=== PATIENT | male | born 1950 | race Caucasian/White ===

== ENCOUNTER → 2016-10-13 | Day surgery (SDC) | payer BC ==
[~2016-10-13] MED LIST: ALLO100T PO; AMIO200T PO; AMLO10TA2 PO; ATOR40TA16 PO; Aspirin Chew PO; DOCU1CAP39 PO; GENTAMICIN SULFATE 80 MG/2 ML VIAL ONE; LACTATED RINGER'S 1000 ML INJ 1,000 ML ONE; LEVA500T PO; LISI-515 PO; LISI40TA PO; LOSA100T PO; METH40TA PO; METO25TA3 PO; MIDAZOLAM HCL 2 MG/2 ML VIAL ONE; ONDANSETRON HCL 4 MG/2 ML VIAL IV PUSH ONE; PLAV75TA29 PO; PROPOFOL 200 MG/20 ML AMP IV ONE; SODIUM CHLORIDE 0.9% SOLN 100 ML BAG IV ONE
--- NOTE | 2016-10-13 16:42 | TN ---
cc: KEY SULLIVAN M.D. DATE OF SURGERY: 10/13/2016 PREOPERATIVE DIAGNOSIS 1. Recurrent gross hematuria (ICD-10 code of R31.0). 2. 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 3. Narrowing at the navicularis fossa. (ICD-10 code N35.9). POSTOPERATIVE DIAGNOSIS: 1. Recurrent gross hematuria (ICD-10 code of R31.0). 2. 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 3. Narrowing at the navicularis fossa. (ICD-10 code N35.9). PROCEDURE: 1. Cystourethroscopy (CPT code 57574) 2. Urethral dilation) CPT code 643150-94) INDICATIONS Mr. Alamo is a 66-year-old gentleman who previously underwent robotic assisted laparoscopic prostatectomy for prostate cancer with resultant occurrence and then image guided radiation therapy salvage treatment. He now has recalcitrant gross hematuria from radiation induced hemorrhagic cystitis. He presents now for fulguration of any bleeding vessels and evacuation of clots. Findings were normal anterior urethra. He did have some narrowing at the navicularis fossa which did not allow the 21 Mongolian cystoscope to be placed. The prostatic urethra was absent. The bladder neck was within normal limits. There was no evidence of active bleeding within the bladder. There was severe radiation changes with innumerable telangiectasia and neovascularity of the bladder itself. The ureteral orifice was normal size, shape and condition, effluxing clear urine. There were no gege tumors or calcifications identified. PROCEDURE The procedure, as well as the risks and benefits were explained to the patient. Informed consent was obtained. The patient was taken to the major operative theater where he was placed in supine position. The patient was identified as well as the operative site. [place] time-out was performed in standard fashion. At this time general anesthetic and prophylactic intravenous antibiotics consisting of gentamicin 80 mg was administered. After adequate anesthetic the patient was placed in the low dorsolithotomy position, prepped and draped in the usual standard fashion. At this time attempts at placing a 21 Mongolian cystoscope were unsuccessful due to some narrowing in the navicularis fossa possibly due to a recent indwelling Wells catheter during the extended hospitalization. At this time, [place] sounds were used from 16 Mongolian to 24 Mongolian to open the urethral meatus and then a 21 Mongolian obturator was placed into the urethra. The obturator was then removed and an Garay resectoscope with a 30 degree lens was inserted and then the remainder of the urethra was bypassed and into the bladder without difficulty. Upon entering the bladder there was no active bleeding, and decision was made not to perform any additional treatment on the bladder. At this time the cystoscope was then removed with clear urine effluxing. The patient tolerated the procedure well, emerged from anesthetic without difficulty. He returned to the Recovery Room in stable condition to be discharged home when criteria is met. There are no obvious complications. The patient will require outpatient hyperbaric oxygen as definitive treatment for his radiation hemorrhagic cystitis. MD GODWIN Fam/DICK /4:13 PM /4:22 PM
== END | disposition home or self-care (01) ==
LOC: ESDC 13:28
PROVIDERS: ATTEND Urology
DX: R31.0 Gross hematuria (principal); N30.40 Irradiation cystitis without hematuria; N35.9 Urethral stricture, unspecified
CPT/HCPCS: 00910; 52281; J1580; J2250; J2405; J3010; J7120

== ENCOUNTER 2016-11-18 13:51 | Observation (INO) | payer MEDICARE, BC ==
[~2016-11-18] VITALS: Ht 167.6 cm; Wt 75.0 kg
[2016-11-18 13:53] VITALS: BP 128/67; PULSE 106; RESP 14; TEMP 97.6; O2SAT 96
--- NOTE | 2016-11-18 14:16 | PD ---
HPI Chief Complaint: Complaint Time Seen by Provider: 14:16 Travel History International Travel<30 days: No Contact w/Intl Traveler<30days: No Traveled to known affect area: No History of Present Illness HPI 66-year-old male came to the emergency room with history of hematuria that started 5-6 hours earlier today. 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 He has been dealing with this problem for past few years. He has a urologist who he sees for this. His last admission was couple months ago for the exact same reason. Patient says that currently he is in pain. He has not had a decent urine void in past few hours. He was seen by the urologist earlier this morning. After that he started having the symptoms. Patient is a chronic alcoholic and he slightly tachycardic. Patient is experiencing spasmodic pain in the suprapubic area. No history of fever or chills. PFSH Past Medical History Narrative Medical List of his past medical history is reviewed from the nursing note. Social History Tobacco Use: Yes Allergies-Medications (Allergen,Severity, Reaction): Coded Allergies: No Known Allergies (Unverified , 11/18/16) Comments No known drug allergies. Reported Meds & Prescriptions Reported Meds & Active Scripts Active Narrative Medication List of his home medications reviewed from the nursing note. Review of Systems Except as stated in HPI: all other systems reviewed are Neg Physical Exam Narrative GENERAL: Awake, alert, anxious, moderate distress SKIN: Warm and dry. HEAD: Atraumatic. Normocephalic. EYES: Pupils equal and round. No scleral icterus. No injection or drainage. ENT: No nasal bleeding or discharge. Mucous membranes pink and moist. NECK: Trachea midline. No JVD. CARDIOVASCULAR: Regular rate and rhythm. No murmur appreciated. RESPIRATORY: No accessory muscle use. Clear to auscultation. Breath sounds equal bilaterally. GASTROINTESTINAL: Slight distention of the abdomen with suprapubic fullness and tenderness. Hepatic and splenic margins not palpable. MUSCULOSKELETAL: No obvious deformities. No clubbing. No cyanosis. No edema. NEUROLOGICAL: Awake and alert. No obvious cranial nerve deficits. Motor grossly within normal limits. Normal speech. PSYCHIATRIC: Appropriate mood and affect; insight and judgment normal. Data Data Last Documented VS Vital Signs Date Time Temp Pulse Resp B/P Pulse Ox O2 Delivery O2 Flow Rate FiO2 2/9/17 14:35 18 95 Room Air 11/18/16 14:28 88 11/18/16 13:53 97.6 128/67 Orders Complete Blood Count With Diff (11/18/16 14:22) Comprehensive Metabolic Panel (11/18/16 14:22) Prothrombin Time / Inr (Pt) (11/18/16 14:22) Act Partial Throm Time (Ptt) (11/18/16 14:22) Ecg Monitoring (11/18/16 14:22) Bilateral Bp Monitoring (11/18/16 14:22) Iv Access Insert/Monitor (11/18/16 14:22) Oximetry (11/18/16 14:22) Oxygen Administration (11/18/16 14:22) Sodium Chloride 0.9% Flush (Ns Flush) (11/18/16 14:30) Sodium Chlorid 0.9% 500 Ml Inj (Ns 500 M (11/18/16 14:30) Urinary Catheter Insert/Apply (11/18/16 14:22) Urinalysis - C+S If Indicated (11/18/16 15:19) Ondansetron Inj (Zofran Inj) (11/18/16 15:45) Morphine Inj (Morphine Inj) (11/18/16 15:45) Morphine Inj (Morphine Inj) (11/18/16 16:45) Admit Order (Ed Use Only) (11/18/16 16:47) Consult Urology (11/18/16 ) Labs Laboratory Tests Test 11/18/16 11/18/16 14:35 16:45 White Blood Count 5.3 TH/MM3 Red Blood Count 3.38 MIL/MM3 Hemoglobin 8.9 GM/DL Hematocrit 27.5 % Mean Corpuscular Volume 81.5 FL Mean Corpuscular Hemoglobin 26.3 PG Mean Corpuscular Hemoglobin 32.3 % Concent Red Cell Distribution Width 15.9 % Platelet Count 231 TH/MM3 Mean Platelet Volume 7.7 FL Neutrophils (%) (Auto) 67.0 % Lymphocytes (%) (Auto) 14.7 % Monocytes (%) (Auto) 13.6 % Eosinophils (%) (Auto) 3.6 % Basophils (%) (Auto) 1.1 % Neutrophils # (Auto) 3.6 TH/MM3 Lymphocytes # (Auto) 0.8 TH/MM3 Monocytes # (Auto) 0.7 TH/MM3 Eosinophils # (Auto) 0.2 TH/MM3 Basophils # (Auto) 0.1 TH/MM3 CBC Comment DIFF FINAL Differential Comment Prothrombin Time 12.3 SEC Prothromb Time International 1.1 RATIO Ratio Activated Partial 27.6 SEC Thromboplast Time Sodium Level 136 MEQ/L Potassium Level 4.0 MEQ/L Chloride Level 102 MEQ/L Carbon Dioxide Level 22.9 MEQ/L Anion Gap 11 MEQ/L Blood Urea Nitrogen 18 MG/DL Creatinine 1.16 MG/DL Estimat Glomerular Filtration 63 ML/MIN Rate Random Glucose 89 MG/DL Calcium Level 8.5 MG/DL Total Bilirubin 0.2 MG/DL Aspartate Amino Transf 52 U/L (AST/SGOT) Alanine Aminotransferase 38 U/L (ALT/SGPT) Alkaline Phosphatase 62 U/L Total Protein 7.3 GM/DL Albumin 3.7 GM/DL Urine Color YELLOW Urine Turbidity HAZY Urine pH 6.5 Urine Specific [place] 1.012 Urine Protein 300 mg/dL Urine Glucose (UA) NEG mg/dL Urine Ketones NEG mg/dL Urine Occult Blood LARGE Urine Nitrite NEG Urine Bilirubin NEG Urine Urobilinogen LESS THAN 2.0 MG/DL Urine Leukocyte Esterase NEG Urine RBC /hpf Urine WBC 66 /hpf Microscopic Urinalysis Comment CATH-CULTURE IND MDM Medical Decision Making Medical Screen Exam Complete: Yes Emergency Medical Condition: Yes Medical Record Reviewed: Yes Differential Diagnosis Hematuria, urinary retention secondary to blood clots Narrative Course 4:30 PM nurse was unable to advance the 3 way cannula for bladder irrigation. Blood test results were back and patient was anemic. Case was discussed with Dr. Philippe who was on-call for urology. He initially recommended to get a bladder scan to quantitate the urine in the bladder. Bladder scanner was unavailable but then he eventually came to see the patient and decided to put the catheter in based on his physical exam. He had difficulty putting the three -way cannula due to urethral stricture. He decided to dilate the urethra with bougie. Eventually he was able to put a Wells catheter. The nurses tried to irrigate it to the best of her ability. He wants the patient to be admitted overnight with continuous irrigation. Case was discussed with the hospitalist was accepted the patient. Patient would require a repeat CBC to check for his hemoglobin. Procedures EKG Prior to Arrival: No Physician Communication Physician Communication Dr. Philippe Diagnosis Primary Impression: Urinary retention Additional Impressions: Gross hematuria Anemia Qualified Code: D64.9 - Anemia, unspecified type Radiation cystitis Admitting Information Admitting Physician Requests: Observation Scripts Levofloxacin (Levaquin)500 Mg Pdh691 Mg PO DAILY #7 TAB Ref 0 Prov:Eduar Ulrich MD 11/19/16 Reese Lockwood MD Nov 18, 2016 14:16
[2016-11-18] MEDS ORDERED: SODIUM CHLORID 0.9% 500 ML INJ 500 ML IV ONE (14:30)
[2016-11-18] MEDS ORDERED: SODIUM CHLORIDE 0.9% FLUSH 5 ML FLUSH IVF PRN (14:30)
[2016-11-18 14:35] VITALS: RESP 18; O2SAT 95
[2016-11-18 14:50] LABS: AUTOMATED NEUTROPHIL # 3.6 TH/MM3 (1.8-7.7); BASOPHIL # 0.1 TH/MM3 (0-0.2); BASOPHIL % 1.1 % (0.0-2.0); EOSINOPHIL # 0.2 TH/MM3 (0-0.4); EOSINOPHIL % 3.6 % (0.0-4.0); HEMATOCRIT 27.5 % (39.0-51.0); HEMO FLAGS DIFF FINAL; LYMPH % 14.7 % (9.0-44.0); LYMPHOCYTE # 0.8 TH/MM3 (1.0-4.8); MEAN CELL VOLUME 81.5 FL (80.0-100.0); MEAN CORPUSCULAR HEMOGLOBIN 26.3 PG (27.0-34.0); MEAN CORPUSCULAR HGB CONC 32.3 % (32.0-36.0); MONO % 13.6 % (0.0-8.0); PLATELET COUNT 231 TH/MM3 (150-450); RED BLOOD COUNT 3.38 MIL/MM3 (4.50-5.90); RED CELL DISTRIBUTION WIDTH 15.9 % (11.6-17.2); WHITE BLOOD COUNT 5.3 TH/MM3 (4.0-11.0)
[2016-11-18 14:58] LABS: APTT (PATIENT) 27.6 SEC (24.3-30.1); INTERNATIONAL NORMALIZED RATIO 1.1 RATIO; PROTHROMBIN TIME - PATIENT 12.3 SEC (9.8-11.6)
[2016-11-18 15:17] LABS: ANION GAP 11 MEQ/L (5-15); AST (GOT) 52 U/L (15-37); BICARBONATE 22.9 MEQ/L (21.0-32.0); BLOOD UREA NITROGEN 18 MG/DL (7-18); CHLORIDE 102 MEQ/L (98-107); GLOMERULAR FILTRATION RATE 63 ML/MIN (>89); SODIUM (NA) 136 MEQ/L (136-145)
[2016-11-18 15:20] LABS: ALKALINE PHOSPHATASE 62 U/L (45-117); ALT (GPT) 38 U/L (12-78); TOTAL BILIRUBIN ADULT 0.2 MG/DL (0.2-1.0)
[2016-11-18] MEDS ORDERED: MORPHINE SULFATE 4 MG/ML INJ IV PUSH ONE ×2 (15:45→16:45)
[2016-11-18] MEDS ORDERED: ONDANSETRON HCL 4 MG/2 ML VIAL IV PUSH ONE (15:45)
--- NOTE | 2016-11-18 16:48 | PD.CONS ---
[facility] Service Urology Consult Requested By Primary Care Physician Hudson Gold III, MD Diagnosis: History of Present Illness 66-year-old male with history of prostate cancer presents with urinary retention and gross hematuria. Patient underwent a robotic prostatectomy 9 years ago and following this he had radiation therapy. Within the last year he developed gross hematuria and was told that he had radiation cystitis on cystoscopic exam. Patient under the care of . During the course today he's had trouble with urination with the recurrence of gross hematuria. He underwent cystoscopy with urethral dilation 1 month ago by his urologist. 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 He was dilated and sent home. Review of Systems Constitutional: DENIES: Fatigue Endocrine: DENIES: Polydipsia Eyes: DENIES: Diplopia Ears, nose, mouth, throat: DENIES: Hearing loss Respiratory: DENIES: Snoring Cardiovascular: DENIES: Chest pain Gastrointestinal: COMPLAINS OF: Abdominal pain (distended bladder) Genitourinary: COMPLAINS OF: Urinary incontinence (since urethral dilation 1 month ago) Musculoskeletal: DENIES: Joint pain Integumentary: DENIES: Abnormal pigmentation Hematologic/lymphatic: DENIES: Lymphadenopathy Immunologic/allergic: DENIES: Urticaria Neurologic: DENIES: Headache Past Family Social History Past Medical History Hypertension Prostate cancer Past Surgical History Robotic -assisted laparoscopic prostatectomy 9 years ago followed by radiation therapy. Allergies: Coded Allergies: No Known Allergies (Unverified , 11/18/16) Physical Exam Vital Signs Vital Signs Date Time Temp Pulse Resp B/P Pulse Ox O2 Delivery O2 Flow Rate FiO2 11/18/16 14:35 18 95 Room Air 11/18/16 14:35 95 Room Air 11/18/16 14:28 88 18 11/18/16 13:53 97.6 106 14 128/67 96 Room Air Physical Exam GENERAL: This is a well-nourished, well-developed patient, in no apparent distress. SKIN: No rashes, ecchymoses or lesions. Cool and dry. HEAD: Atraumatic. Normocephalic. No temporal or scalp tenderness. EYES: Pupils equal round and reactive. Extraocular motions intact. No scleral icterus. No injection or drainage. ENT: Nose without bleeding, purulent drainage or septal hematoma. Throat without erythema, tonsillar hypertrophy or exudate. Uvula midline. Airway patent. NECK: Trachea midline. No JVD or lymphadenopathy. Supple, nontender, no meningeal signs. CARDIOVASCULAR: Regular rate and rhythm without murmurs, gallops, or rubs. RESPIRATORY: Clear to auscultation. Breath sounds equal bilaterally. No wheezes , rales, or rhonchi. GASTROINTESTINAL: Abdomen soft, non-tender, bladder is distended. No hepato- splenomegaly, or palpable masses. No guarding. : Normal phallus testes are descended: Dribbling blood-tinged urine from meatus. MUSCULOSKELETAL: Extremities without clubbing, cyanosis, or edema. No joint tenderness, effusion, or edema noted. No calf tenderness. Negative Homans sign bilaterally. NEUROLOGICAL: Awake and alert. Cranial nerves II through XII intact. Motor and sensory grossly within normal limits. Five out of 5 muscle strength in all muscle groups. Normal speech. Laboratory Laboratory Tests Test 11/18/16 14:35 White Blood Count 5.3 Red Blood Count 3.38 Hemoglobin 8.9 Hematocrit 27.5 Mean Corpuscular Volume 81.5 Mean Corpuscular Hemoglobin 26.3 Mean Corpuscular Hemoglobin 32.3 Concent Red Cell Distribution Width 15.9 Platelet Count 231 Mean Platelet Volume 7.7 Neutrophils (%) (Auto) 67.0 Lymphocytes (%) (Auto) 14.7 Monocytes (%) (Auto) 13.6 Eosinophils (%) (Auto) 3.6 Basophils (%) (Auto) 1.1 Neutrophils # (Auto) 3.6 Lymphocytes # (Auto) 0.8 Monocytes # (Auto) 0.7 Eosinophils # (Auto) 0.2 Basophils # (Auto) 0.1 CBC Comment DIFF FINAL Differential Comment Prothrombin Time 12.3 Prothromb Time International 1.1 Ratio Activated Partial 27.6 Thromboplast Time Sodium Level 136 Potassium Level 4.0 Chloride Level 102 Carbon Dioxide Level 22.9 Anion Gap 11 Blood Urea Nitrogen 18 Creatinine 1.16 Estimat Glomerular Filtration 63 Rate Random Glucose 89 Calcium Level 8.5 Total Bilirubin 0.2 Aspartate Amino Transf 52 (AST/SGOT) Alanine Aminotransferase 38 (ALT/SGPT) Alkaline Phosphatase 62 Total Protein 7.3 Albumin 3.7 Result Diagram: 11/18/16 1435 11/18/16 1435 Course Patient was prepped and draped in usual sterile fashion. Filiforms and followers were passed into the bladder over a wire up to an 18 Malawian sound. 16th Malawian comanche tip catheter was then passed over the wire and he tolerated the procedure well. Assessment and Plan Assessment and Plan 66-year-old male with history of prostate cancer and radiation cystitis now and urinary retention. Patient underwent urethral dilatation at the bedside while in the emergency room. 16 comanche tip catheter passed over wire without difficulty. Bladder manually irrigated and urine is clearing. Only a few clots were identified. Observe overnight and manually irrigate Wells every 1-1/2-2 hours to maintain patency and avoid clot retention. Himanshu Philippe DO Nov 18, 2016 16:48
[2016-11-18 17:14] VITALS: BP 146/71; PULSE 88; RESP 20; O2SAT 98
[2016-11-18 18:08] LABS: BLOOD, URINE LARGE (NEG); COMMENT (UR) CATH-CULTURE IND; CULTURE IF INDICATED CATH CULTURE IND; GLUCOSE,URINE NEG (NEG); KETONE, URINE NEG (NEG); NITRITE,URINE NEG (NEG); PH, URINE 6.5 (5.0-8.5); URINE COLOR YELLOW (YELLW/STRAW)
[2016-11-18] MEDS: DEXT 5%-NACL 0.45% 1000 ML INJ 1,000 ML IV SCH (18:33)
[2016-11-18 18:40] VITALS: BP 142/75; PULSE 91; RESP 18; O2SAT 96
[2016-11-18 20:00] VITALS: BP 140/72; PULSE 90; RESP 18; O2SAT 96
[2016-11-18 22:00] VITALS: BP 136/74; PULSE 88; RESP 18; O2SAT 96
[2016-11-19] MEDS: DEXT 5%-NACL 0.45% 1000 ML INJ 1,000 ML IV SCH (01:00)
[2016-11-19 04:25] VITALS: BP 133/62; PULSE 75; RESP 19; TEMP 98; O2SAT 98
[2016-11-19 07:42] VITALS: BP 154/87; PULSE 108; RESP 18; TEMP 97.6; O2SAT 94
[2016-11-19 07:56] VITALS: BP 122/78; PULSE 87; RESP 18; TEMP 98.4; O2SAT 95
--- NOTE | 2016-11-19 08:49 | MH ---
cc: YANETHLETICIACHERYL DATE OF ADMISSION: 11/18/2016 DATE OF : 1950 REASON FOR ADMISSION Urinary retention. HISTORY OF PRESENT ILLNESS This is a pleasant 66-year-old white male who has been in his usual state of health up until this a.m. The patient ate a bowl of cereal and was drinking p.o. fluids but was unable to void. He states that this has happened to him before and he had to have an intervention so he could urinate. The patient had a robotic prostatectomy nine years ago following some radiation therapy. He has been told in the past by Urology that he had developed radiation cystitis and is followed per his urologist Dr. Carballo. The patient comes to the emergency room with positive for bladder pain due to being unable to void. He denies any chest pain, shortness of breath, no nausea or vomiting, no headache, no fever. He is positive for hot flashes but this is a chronic thing for him. The patient is alert, cooperative, understands the situation and is a good historian. 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 At that time, he was dilated and sent home. The patient denies any recent weight gain or weight loss. He has had no problems with appetite. He has been taking his usual medications without any problem. Some of the history information is being pulled from the record. PAST MEDICAL HISTORY 1. Hypertension. 2. Prostate surgery. 3. Anemia. 4. Radiation cystitis. 5. Gross hematuria. 6. Urinary retention. PAST SURGICAL HISTORY Laparoscopic prostatectomy robotic nine years ago. ALLERGIES NO KNOWN. MEDICATIONS No active meds brought in to the hospital but the patient does state that he takes 60 mg of methadone daily, he has already taken his dose for the day, this is for his pain management. SOCIAL HISTORY The patient is , lives alone. Denies any tobacco usage. He does have ETOH abuse with daily alcohol mostly beers after work. Denies any other illicit drugs except his prescriptions. FAMILY HISTORY Positive for Parkinson's and heart disease. REVIEW OF SYSTEMS A 12-point review was done. Positives noted, gross hematuria, urinary retention, acute on chronic pain, anxiety mild. Other systems are negative or unremarkable. PHYSICAL EXAMINATION VITAL SIGNS: Temp 97.6, pulse 88, respirations 20, blood pressure 128/67 and 146/71, these blood pressures were taken four hours apart, O2 sat 98 on room air. GENERAL: Well-nourished, well-developed white male, looks younger than his stated age, resting on the stretcher, in no acute distress at this time. He is status post urethral dilatation here in the emergency room. HEENT: Atraumatic, normocephalic. PERRLA at 2 mm. Mucous membranes are pink and moist. He has no scleral icterus. No drainage. NECK: Supple with no JVD. CARDIOVASCULAR: Systolic murmur noted at the left lower midsternal border, it is a grade 3/6, holosystolic. He has no edema and his pulses are intact. PULMONARY: Essentially clear lungs anteriorly and posteriorly with no wheezes, rales or rhonchi. GASTROINTESTINAL: Abdomen is flat, soft, nontender, nondistended. GENITOURINARY: Wells catheter with bright red urine. No bladder pain or spasms at this time. MUSCULOSKELETAL: Moves all extremities with purpose. He has no cyanosis, no clubbing. Hand mobility specialist are equal. NEUROLOGICAL: He is alert and oriented x4. A good historian. Cranial nerves intact. PSYCHOLOGICAL: His affect is normal. Insight and judgment is normal. SKIN: His skin is pink, warm and dry. DIAGNOSTIC DATA WBC count 5.3, RBC 3.38, hemoglobin 8.9, hematocrit 27.5, platelet count 231, monocyte percentage auto 14.6, lymphocyte percentage 0.8. PT/INR 1.1. Chemistry: Sodium 136, potassium 4, chloride 102, carbon dioxide 22.9, anion gap 11, BUN 18, creatinine 1.16, GFR 63, random glucose 89, AST 52. Urine is pending. ASSESSMENT 1. Urinary retention. 2. Gross hematuria. 3. Radiation cystitis. 4. Anemia. 5. ETOH abuse. PLAN 1. Admit for observation. 2. Place the patient on a regular diet. 3. Reconcile his medications. 4. Consult Urology for his expert opinion to follow. 5. ECG monitoring. 6. Vital sign monitoring which will include his temp, pulse, respirations and blood pressure. 7. O2 therapy as needed. 8. Eva hydration with IV fluids. Currently the patient has D5 normal saline infusion. 9. Since the patient is actively bleeding, we will have no DVT prophylaxis. 10. We will irrigate the Wells every hour until urine is clear. 11. If the patient stabilizes, we will look at discharge planning sometime in the next 24-48 hours. The patient is FULL CODE, FULL AGGRESSIVE CARE. Dictated by: PRATEEK Gabriel Cheryl Ulrich MD JP/JOE /5:22 PM /8:42 AM PT SEEN AND EXAMINED ON DAY ADMISSION ABOVE FACE TO FACE TIME SPENT WITH PT CHART WAS REVIEWED. INCLUDING LABS MEDS AND RAD DATA NOTES WERE REVEIWED PLAN OF CARE WAS DW PRATEEK ABOVE DW PT IN DETAIL COND WAS GUARDED [facility] YEE
--- NOTE | 2016-11-19 10:01 | HHI.PR ---
Subjective Remarks Pt seen and examined. Urine now clear. Objective Vital Signs Vital Signs Date Time Temp Pulse Resp B/P Pulse Ox O2 Delivery O2 Flow Rate FiO2 11/19/16 07:56 98.4 87 18 122/78 95 11/19/16 04:25 98.0 75 19 133/62 98 11/18/16 22:00 88 18 136/74 96 Room Air 11/18/16 20:00 90 18 140/72 96 Room Air 11/18/16 19:30 20 11/18/16 19:30 20 11/18/16 18:40 91 18 142/75 96 Room Air 11/18/16 17:14 88 20 146/71 98 Room Air 11/18/16 14:35 18 95 Room Air 11/18/16 14:35 95 Room Air 11/18/16 14:28 88 18 11/18/16 13:53 97.6 106 14 128/67 96 Room Air I/O 11/18/16 11/18/16 11/18/16 11/19/16 11/19/16 11/19/16 07:00 15:00 23:00 07:00 15:00 23:00 Intake Total 600 ml Output Total 400 ml 750 ml Balance 200 ml -750 ml Intake IV Total 600 ml Output Urine Total 400 ml 750 ml # Voids 0 0 Result Diagram: 11/18/16 1435 11/18/16 1435 Objective Remarks Abd:soft,nt,nd Gomez: urine clear Assessment and Plan Assessment and Plan 66-year-old male with history of prostate cancer and radiation cystitis now and urinary retention. Patient underwent urethral dilatation at the bedside while in the emergency room. 16 nulato tip catheter passed over wire without difficulty. Bladder manually irrigated and urine is clearing. Only a few clots were identified. Observe overnight and manually irrigate Gomez every 1-1/2-2 hours to maintain patency and avoid clot retention. 11/19 66-year-old male with history of prostate cancer and radiation cystitis with AUR s/p urethral dilatation at bedside with complicated gomez placement Pt does not wish to leave catheter in place for 5 days as recommended and wishes it to be removed. D/C gomez per pt wishes Instruct CIC BIW to help with maintain urethral patency F/U with Dr. Beard to have HBO scheduled for treatment of XRT cystitis Himanshu Philippe DO Nov 19, 2016 10:01
--- NOTE | 2016-11-19 10:26 | HHI.PR ---
Subjective Remarks Patient has no complaint Has no more blood clots or any bleeding in his urine sign no pain No nausea vomiting Note a next and feeling good next review of system for 10 point system otherwise unremarkable Objective Objective Results - Vital Signs Date Time Temp Pulse Resp B/P Pulse Ox O2 Delivery O2 Flow Rate FiO2 11/19/16 07:56 98.4 87 18 122/78 95 11/19/16 04:25 98.0 75 19 133/62 98 11/18/16 22:00 88 18 136/74 96 Room Air 11/18/16 20:00 90 18 140/72 96 Room Air 11/18/16 19:30 20 11/18/16 19:30 20 11/18/16 18:40 91 18 142/75 96 Room Air 11/18/16 17:14 88 20 146/71 98 Room Air 11/18/16 14:35 18 95 Room Air 11/18/16 14:35 95 Room Air 11/18/16 14:28 88 18 11/18/16 13:53 97.6 106 14 128/67 96 Room Air I/O 11/18/16 11/18/16 11/18/16 11/19/16 11/19/16 11/19/16 07:00 15:00 23:00 07:00 15:00 23:00 Intake Total 600 ml Output Total 400 ml 750 ml Balance 200 ml -750 ml Intake IV Total 600 ml Output Urine Total 400 ml 750 ml # Voids 0 0 Result Diagram: 11/18/16 1435 11/18/16 1435 Other Results Laboratory Tests Test 11/18/16 11/18/16 14:35 16:45 White Blood Count 5.3 Red Blood Count 3.38 Hemoglobin 8.9 Hematocrit 27.5 Mean Corpuscular Volume 81.5 Mean Corpuscular Hemoglobin 26.3 Mean Corpuscular Hemoglobin 32.3 Concent Red Cell Distribution Width 15.9 Platelet Count 231 Mean Platelet Volume 7.7 Neutrophils (%) (Auto) 67.0 Lymphocytes (%) (Auto) 14.7 Monocytes (%) (Auto) 13.6 Eosinophils (%) (Auto) 3.6 Basophils (%) (Auto) 1.1 Neutrophils # (Auto) 3.6 Lymphocytes # (Auto) 0.8 Monocytes # (Auto) 0.7 Eosinophils # (Auto) 0.2 Basophils # (Auto) 0.1 CBC Comment DIFF FINAL Differential Comment Prothrombin Time 12.3 Prothromb Time International 1.1 Ratio Activated Partial 27.6 Thromboplast Time Sodium Level 136 Potassium Level 4.0 Chloride Level 102 Carbon Dioxide Level 22.9 Anion Gap 11 Blood Urea Nitrogen 18 Creatinine 1.16 Estimat Glomerular Filtration 63 Rate Random Glucose 89 Calcium Level 8.5 Total Bilirubin 0.2 Aspartate Amino Transf 52 (AST/SGOT) Alanine Aminotransferase 38 (ALT/SGPT) Alkaline Phosphatase 62 Total Protein 7.3 Albumin 3.7 Urine Color YELLOW Urine Turbidity HAZY Urine pH 6.5 Urine Specific [place] 1.012 Urine Protein 300 Urine Glucose (UA) NEG Urine Ketones NEG Urine Occult Blood LARGE Urine Nitrite NEG Urine Bilirubin NEG Urine Urobilinogen LESS THAN 2.0 Urine Leukocyte Esterase NEG Urine RBC Urine WBC 66 Microscopic Urinalysis Comment CATH-CULTURE IND Date/Time Procedure Status Source Growth 11/18/16 16:45 Urine Culture Received Urine Catheterized Urine Pending Physical Exam Physical Exam GENERAL: Well-nourished, well-developed white male, looks younger than his stated age, resting on the stretcher, in no acute distress at this time. He is status post urethral dilatation. HEENT: Atraumatic, normocephalic. PERRLA. Mucous membranes are pink and moist. He has no scleral icterus. No drainage. NECK: Supple with no JVD. CARDIOVASCULAR: Systolic murmur noted at the left lower midsternal border, it is a grade 2- 3/6, holosystolic. He has no edema and his pulses are intact. PULMONARY: Essentially clear lungs anteriorly and posteriorly with no wheezes, rales or rhonchi. GASTROINTESTINAL: Abdomen is flat, soft, nontender, nondistended. GENITOURINARY: Wells catheter with clear urine. No bladder pain or spasms at this time. MUSCULOSKELETAL: Moves all extremities with purpose. He has no cyanosis, no clubbing. 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 NEUROLOGICAL: He is alert and oriented x4. A good historian. Cranial nerves intact. PSYCHOLOGICAL: His affect is normal. Insight and judgment is normal. SKIN: His skin is pink, warm and dry. A/P Assessment and Plan 1. Urinary retention. 2. Gross hematuria. 3. Radiation cystitis. 4. Anemia. 5. ETOH abuse. PLAN No urine is clear Labs reviewed Continue his medications. Appreciate consultation by Urology status post urethral dilation Off of continuous bladder irrigation now clear urine. As per fire management technician cleared for discharge. Stable blood pressure. Medications reviewed Plan to discharge him home today without Wells catheter as recommended by urologist, as witnessed by patient and RN both Discussed with RN Patient will follow his urologist as outpatient and primary care doctor as outpatient Overall condition is stable and good discharge him home today Eduar Ulrich MD Nov 19, 2016 10:26
[2016-11-19] MEDS ORDERED: LEVA500T PO (10:27)
[2016-11-24] MEDS ORDERED: LISI-515 PO (15:47)
[2016-11-24] MEDS ORDERED: LISI40TA PO (15:47)
[2016-12-07] MEDS ORDERED: AMLO10TA2 PO (12:59)
[2016-12-16] MEDS ORDERED: LOSA100T PO (15:00)
== END 2016-11-19 11:16 | disposition home or self-care (01) ==
LOC: NEPD 13:51 → NEDA 16:48 → NEPGCP 11-19 00:19
PROVIDERS: ADMIT Specialist; ATTEND Specialist
DX: R33.9 Retention of urine, unspecified (principal); N30.41 Irradiation cystitis with hematuria; D64.9 Anemia, unspecified; R00.0 Tachycardia, unspecified; F17.210 Nicotine dependence, cigarettes, uncomplicated; N35.8 Other urethral stricture; Z85.46 Personal history of malignant neoplasm of prostate; I10 Essential (primary) hypertension; F10.10 Alcohol abuse, uncomplicated
CPT/HCPCS: 80053; 81001; 85025; 85610; 85730; 87086; 96361; 96374; 96375; 96376; 99284; G0378; J2270; J2405; J7040

== ENCOUNTER → 2016-12-14 | Day surgery (SDC) | payer MEDICARE, BC ==
[~2016-12-14] MED LIST changes: -LEVA500T PO; -LISI-515 PO; -LISI40TA PO; -ONDANSETRON HCL 4 MG/2 ML VIAL IV PUSH ONE; +PROPOFOL 100 MG/10 ML INJ IV ONE; -PROPOFOL 200 MG/20 ML AMP IV ONE; +SODIUM CHLORIDE 0.9% SOLN 100 ML (PAB) BAG IV ONE; -SODIUM CHLORIDE 0.9% SOLN 100 ML BAG IV ONE
--- NOTE | 2016-12-14 09:19 | TN ---
cc: KEY SULLIVAN M.D. DATE OF SURGERY: 12/14/2016 PREOPERATIVE DIAGNOSIS 1. Recalcitrant hemorrhagic induced radiation cystitis. 2. Prostate cancer. POSTOPERATIVE DIAGNOSIS 1. Recalcitrant hemorrhagic induced radiation cystitis. 2. Prostate cancer. PROCEDURE Cystourethroscopy with evacuation of clots and fulguration of bleeding vessels (CPT code 91027). INDICATIONS Mr. Trimble is a 66-year-old gentleman who previously underwent robotic-assisted laparoscopic prostatectomy for prostate cancer with resultant recurrence and then image guided radiation therapy for salvage treatment. Unfortunately, he has had now recalcitrant gross hematuria from radiation-induced hemorrhagic cystitis. He presents now for evacuation of clots and fulguration of any bleeding vessels. He has just recently started hyperbaric oxygen as definitive treatment. FINDINGS Findings are normal anterior urethra. Unfortunately the bulbous and membranous urethra show evidence of radiation changes with diffuse telangiectasia and bleeding vessels as well as the bladder neck itself where there is actually evidence of a small arterial bleeding vessel. The prostate is absent. The trigone shows significant telangiectasia of the trigone and radiation changes. There is one oozing vessel proximal to the left ureteral orifice but no other bleeding vessels within the bladder itself. There is a large clot within the bladder. The remainder of the bladder shows no suspicious tumors or lesions. The ureteral orifice is normal size, shape and position, effluxing clear urine and although the process is in close proximity they do not appear to be involved. PROCEDURE Procedure as well as risks and benefits were explained to the patient, informed consent was obtained. The patient was taken to the major operative theater where he was placed in supine position. The patient was identified as well as the operative site. [place] time-out was performed in standard fashion. At this time general anesthetic and prophylactic intravenous antibiotics consisting of gentamicin 80 mg was administered. After adequate anesthetic the patient was placed in low dorsolithotomy position, prepped and draped in the usual sterile fashion. At this time attempts at placing a 22.5 cystoscope were unsuccessful due to some narrowing at the navicularis fossa so serial dilatation from 16-[place] to 24-[place] of just the glandular urethra was performed. There was some mild bleeding. At this time the cystoscope was able to be entered without difficulty traversing the urethra and into the bladder without difficulty. At this time photo documentation was obtained and the clot was evacuated relatively easily. The Bugbee probe was used to fulgurate any bleeding vessels, especially the one in the bladder and the pumping vessel within the bladder neck. The remainder of the vessels were fulgurated as best as could be obtained given the difficulty in his situation of diffuse oozing. At this time after confirming relative hemostasis, the bladder was decompressed, cystoscope was removed. The patient tolerated the procedure well and emerged from anesthetic without difficulty and transferred to the recovery room in stable condition. He will be discharged home when criteria is met. There are no obvious complications. The patient will continue hyperbaric oxygen in the hopes that this will alleviate the issue. MD GODWIN Fam/KARTHIK /8:43 AM /9:06 AM
== END | disposition home or self-care (01) ==
LOC: ESDC 06:11
PROVIDERS: ATTEND Urology
DX: N30.41 Irradiation cystitis with hematuria (principal); C61 Malignant neoplasm of prostate
CPT/HCPCS: 00910; 52214; J1580; J2250; J3010; J7120

== ENCOUNTER 2017-01-28 07:25 | Day surgery (SDC) | payer MEDICARE, BC ==
[~2017-01-28] VITALS: Ht 167.6 cm; Wt 77.4 kg
[~2017-01-28 07:25] MED LIST changes: -ALLO100T PO; -AMIO200T PO; -AMLO10TA2 PO; -ATOR40TA16 PO; -Aspirin Chew PO; -DOCU1CAP39 PO; -GENTAMICIN SULFATE 80 MG/2 ML VIAL ONE; -LACTATED RINGER'S 1000 ML INJ 1,000 ML ONE; -METH40TA PO; -METO25TA3 PO; -MIDAZOLAM HCL 2 MG/2 ML VIAL ONE; -PLAV75TA29 PO; -PROPOFOL 100 MG/10 ML INJ IV ONE; -SODIUM CHLORIDE 0.9% SOLN 100 ML (PAB) BAG IV ONE
[2017-01-28] MEDS ORDERED: NS 1000P @30 MLS/HR (KVO) IV SCH (08:00)
[2017-01-28 08:04] VITALS: BP 158/90; PULSE 102; RESP 17; TEMP 100.2; O2SAT 98
[2017-01-28] MEDS ORDERED: ALLO100T PO (08:08)
[2017-01-28 08:14] LABS: AUTOMATED NEUTROPHIL # 8.4 TH/MM3 (1.8-7.7); BASOPHIL % 0.4 % (0.0-2.0); EOSINOPHIL # 0.1 TH/MM3 (0-0.4); EOSINOPHIL % 1.2 % (0.0-4.0); LYMPH % 5.9 % (9.0-44.0); LYMPHOCYTE # 0.6 TH/MM3 (1.0-4.8); MEAN CELL VOLUME 74.5 FL (80.0-100.0); MEAN CORPUSCULAR HEMOGLOBIN 22.8 PG (27.0-34.0); MEAN CORPUSCULAR HGB CONC 30.6 % (32.0-36.0); MONO % 9.8 % (0.0-8.0); NEUT % 82.7 % (16.0-70.0); PLATELET COUNT 241 TH/MM3 (150-450); RED BLOOD COUNT 3.62 MIL/MM3 (4.50-5.90); RED CELL DISTRIBUTION WIDTH 18.9 % (11.6-17.2); WHITE BLOOD COUNT 10.2 TH/MM3 (4.0-11.0)
[2017-01-28 08:15] LABS: HEMO FLAGS AUTO DIFF
[2017-01-28 08:24] LABS: APTT (PATIENT) 26.2 SEC (24.3-30.1); INTERNATIONAL NORMALIZED RATIO 1.1 RATIO; PROTHROMBIN TIME - PATIENT 12.3 SEC (9.8-11.6)
[2017-01-28 08:38] LABS: POTASSIUM 3.9 MEQ/L (3.5-5.1)
[2017-01-28 08:44] LABS: SCAN/DIFF AUTO DIFF CONFIRMED
[2017-01-28] MEDS ORDERED: IOHEXOL 350 MG/ML 100 ML BTL (for Cath Lab) OTHER ONE (09:10)
[2017-01-28] MEDS ORDERED: IOHEXOL 350 MG/ML 50 ML BTL (for Cath Lab) OTHER ONE (09:10)
[2017-01-28] MEDS ORDERED: HEPARIN-NS/PF INJ 500 ML ONE (09:24)
[2017-01-28] MEDS ORDERED: MIDAZOLAM HCL 5 MG/5 ML VIAL ONE ×2 (09:28→10:27)
[2017-01-28] MEDS ORDERED: HEPARIN SODIUM - IV 10,000 UNITS/10 ML VIAL ONE (10:56)
[2017-01-28 11:52] LABS: HDL CHOLESTEROL 46.8 MG/DL (40.0-60.0)
--- NOTE | 2017-01-28 17:44 | PD.CAR.PN ---
CVT Progress Note Subjective/Hospital Course: sts data discussed with pt RISK SCORES About the STS Risk Calculator Procedure: AV Replacement Risk of Mortality: 1.089% Morbidity or Mortality: 10.273% Long Length of Stay: 3.243% Short Length of Stay: 60.745% Permanent Stroke: 0.794% Prolonged Ventilation: 3.901% DSW Infection: 0.17% Renal Failure: 2.384% Reoperation: 5.577% Objective: Vital Signs Date Time Temp Pulse Resp B/P Pulse Ox O2 Delivery O2 Flow Rate FiO2 01/28/17 10:53 96 Room Air 01/28/17 08:04 100.2 102 17 158/90 98 Labs: Laboratory Tests Test 01/28/17 07:50 White Blood Count 10.2 TH/MM3 (4.0-11.0) Red Blood Count 3.62 MIL/MM3 (4.50-5.90) Hemoglobin 8.3 GM/DL (13.0-17.0) Hematocrit 27.0 % (39.0-51.0) Mean Corpuscular Volume 74.5 FL (80.0-100.0) Mean Corpuscular Hemoglobin 22.8 PG (27.0-34.0) Mean Corpuscular Hemoglobin 30.6 % Concent (32.0-36.0) Red Cell Distribution Width 18.9 % (11.6-17.2) Platelet Count 241 TH/MM3 (150-450) Mean Platelet Volume 8.2 FL (7.0-11.0) Neutrophils (%) (Auto) 82.7 % (16.0-70.0) Lymphocytes (%) (Auto) 5.9 % (9.0-44.0) Monocytes (%) (Auto) 9.8 % (0.0-8.0) Eosinophils (%) (Auto) 1.2 % (0.0-4.0) Basophils (%) (Auto) 0.4 % (0.0-2.0) Neutrophils # (Auto) 8.4 TH/MM3 (1.8-7.7) Lymphocytes # (Auto) 0.6 TH/MM3 (1.0-4.8) Monocytes # (Auto) 1.0 TH/MM3 (0-0.9) Eosinophils # (Auto) 0.1 TH/MM3 (0-0.4) Basophils # (Auto) 0.0 TH/MM3 (0-0.2) CBC Comment AUTO DIFF Differential Comment AUTO DIFF CONFIRMED Prothrombin Time 12.3 SEC (9.8-11.6) Prothromb Time International 1.1 RATIO Ratio Activated Partial 26.2 SEC Thromboplast Time (24.3-30.1) Sodium Level 138 MEQ/L (136-145) Potassium Level 3.9 MEQ/L (3.5-5.1) Chloride Level 105 MEQ/L (98-107) Carbon Dioxide Level 27.0 MEQ/L (21.0-32.0) Anion Gap 6 MEQ/L (5-15) Blood Urea Nitrogen 14 MG/DL (7-18) Creatinine 1.08 MG/DL (0.60-1.30) Estimat Glomerular Filtration 69 ML/MIN (>89) Rate Random Glucose 121 MG/DL (74-106) Calcium Level 8.6 MG/DL (8.5-10.1) Triglycerides Level 83 MG/DL (42-150) Cholesterol Level 130 MG/DL (120-200) LDL Cholesterol 67 MG/DL (0-99) HDL Cholesterol 46.8 MG/DL (40.0-60.0) Cholesterol/HDL Ratio 2.77 RATIO Result Diagram: 01/28/17 0750 01/28/17 0750 Noelle Walker Jan 28, 2017 17:44
--- NOTE | 2017-01-28 18:41 | RADRPT ---
EXAM DATE/TIME: 01/28/2017 17:36 [facility] COMPARISON: No previous studies available for comparison. INDICATIONS : Evaluate for pneumonia, pneumothorax or communicable disease. Pre-op heart valve replacement MEDICAL HISTORY : None. SURGICAL HISTORY : None. ENCOUNTER: Initial ACUITY: 1 day PAIN SCORE: 0/10 LOCATION: Bilateral chest FINDINGS: PA and lateral views of the chest demonstrate the lungs to be symmetrically aerated without evidence of mass, infiltrate or effusion. The cardiomediastinal contours are unremarkable. Osseous structure s are intact. CONCLUSION: No acute disease. Kenneth Fuentes MD on January 28, 2017 at 18:38 Board Certified Radiologist. This report was verified electronically.
--- NOTE | 2017-01-28 18:42 | EKG ---
Date Performed: 01/28/2017 Time Performed: 08:01:00 PTAGE: 66 years EKG: Sinus tachycardia Poor R wave progression - probable normal variant Lateral ST-T changes ar e nonspecific Borderline ECG NO PREVIOUS TRACING DOCTOR: Ruslan Aburto Interpretating Date/Time 01/28/2017 18:40:04
--- NOTE | 2017-01-28 19:40 | RADRPT ---
EXAM DATE/TIME: 01/28/2017 17:55 [facility] COMPARISON: No previous studies available for comparison. INDICATIONS : Preop atrial valve replacement. MEDICAL HISTORY : Carcinoma, prostate. Hypertension. Aortic stenosis. UTI. SURGICAL HISTORY : Prostatectomy. Spinal surgery. ENCOUNTER: Initial ACUITY: 1 day PAIN SCORE: 0/10 LOCATION: Bilateral neck PEAK SYSTOLIC VELOCITIES (cm/sec): ICA/CCA RATIO: Right: 1.6 Left: 1.2 ICA: Right: 100 Left: 96 CCA: Right: 63 Left: 79 ECA: Right: 87 Left: 71 VERTEBRAL: Right: 61 antegrade Left: 61 antegrade Elevated flow velocities and ICA/CCA ratios have been found to correlate with increased degrees of vessel stenosis, calculated as percentage of diameter relative to a normal segment of distal ICA/CCA FINDINGS: RIGHT CAROTID: No significant stenosis is visualized. The waveforms are within normal limits. LEFT CAROTID: No significant stenosis is visualized. The waveforms are within normal limits. VERTEBRAL ARTERIES: Antegrade flow is seen in both vertebral arteries. MISCELLANEOUS: None. CONCLUSION: No hemodynamically significant stenosis in either carotid artery. Kenneth Fuentes MD on January 28, 2017 at 19:37 Board Certified Radiologist. This report was verified electronically.
[2017-01-28 19:55] LABS: BLOOD, URINE TRACE (NEG); COMMENT (UR) CULT NOT INDICATED; CULTURE IF INDICATED CULT NOT INDICATED; GLUCOSE,URINE NEG (NEG); KETONE, URINE NEG (NEG); NITRITE,URINE NEG (NEG); PH, URINE 6.5 (5.0-8.5); URINE COLOR YELLOW (YELLW/STRAW)
--- NOTE | 2017-01-28 20:24 | MB ---
cc: BALTAZAR VALDEZ DATE OF CONSULTATION 01/28/[address] Han REASON FOR CONSULTATION Shortness of breath. HISTORY OF PRESENT ILLNESS This is a pleasant 66-year-old male with shortness of breath significantly worse over the last three months. He was able to walk more than half a mile to one mile three months ago but now he barely walks half a block and gets short of breath. Denies any chest pain. No fever or chills. No night sweats. The patient is undergoing hyperbaric treatment because of radiation cystitis. He had CA of the prostate and received radiation treatment. Today he underwent cardiac catheterization. He has severe aortic stenosis and is being planned for aortic valve replacement. PAST MEDICAL HISTORY 1. History of aortic stenosis 2. Dyspnea 3. Hypertension, 4. Prostate cancer status post radiation treatment 5. Radiation cystitis MEDICATIONS 1. Losartan 100 mg 2. Allopurinol 100 mg. ALLERGIES AMLODIPINE LISINOPRIL SOCIAL HISTORY He is . He works for a [employer]. No history of smoking. Drinks one to two beers. FAMILY HISTORY Has three children all grown. REVIEW OF SYSTEMS Normally he is up and active, still working. Denies any weight loss. No hemoptysis. No DVT or embolism. No seizure, stroke or epilepsy. PHYSICAL EXAMINATION GENERAL: A well-built, well-nourished male not in acute distress. VITAL SIGNS: Blood pressure 158/90, heart rate 102, respiration 17, temperature 100 HEENT: Pupils are equal and reactive. Oral mucosa and nasal mucosa normal. NECK: Supple. CHEST: Equal bilaterally. No rales or rhonchi. CARDIOVASCULAR: Normal. He has systolic normal. ABDOMEN: Soft, nondistended. Bowel sounds present. EXTREMITIES: No edema. 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 No focal deficit. LABORATORY FINDINGS WBC 10.2, hemoglobin 8.3, hematocrit 27, MCV 74, platelet count 241. Sodium 138, potassium 3.9, chloride 105, CO2 27, BUN 14, creatinine 1.08. He had a PFT done which shows his FVC is 83% of predicted. FVC/FEV1 ratio is mildly decreased. IMPRESSION 1. Shortness of breath probably related to his severe aortic stenosis. He also has anemia which may be contributing to his symptoms. His PFT is near normal. 2. Severe aortic stenosis 3. Anemia 4. Cancer of the prostate status post radiation treatment. 5. Radiation cystitis. He is on hyperbaric treatment. PLAN I discussed with the patient he is being planned for surgery for replacement of the aortic valve. He is stable from pulmonary standpoint of view. For completion of the work, he will need a complete pulmonary function study as outpatient. Further treatment will depend on the course in the hospital. Thank you Dr. Han for this consult. MD SELVIN Longoria/ /6:43 PM /8:08 PM YEE
--- NOTE | 2017-01-31 08:28 | MB ---
cc: LEATHA AGRAWAL MD DATE OF CONSULTATION: 01/28/2017. HISTORY OF PRESENT ILLNESS: 66-year-old patient of Dr. Hudson Gold and Dr. Han who apparently has been having some shortness of breath and tightness and also some swelling of his lower extremities and lightheadedness when he bends over for the last couple of months and also some chest discomfort after his hyperbaric treatments. The patient was evaluated with an echocardiogram which showed a peak gradient of 101 mm, aortic valve area 0.5, some mild mitral regurgitation, mild tricuspid regurgitation, an ejection fraction of 55% and some left ventricular hypertrophy. The patient underwent cardiac cath today by Dr. Han which showed severe . He also had some elevated pulmonary pressures with the PA pressure 65/46, RV pressure 65/10, RA pressure of 12. No evidence of coronary disease. We were consulted to evaluate for aortic valve replacement. PAST MEDICAL HISTORY: 1. Prostate cancer 7 years ago where he had prostate surgery followed by prostate radiation. 2. He developed some hematuria back in September where he has had catheters placed multiple times. 3. He has had some irrigation of the bladder. His last catheter was three weeks ago. He is followed by Dr. Carballo and says he normally if he has to have a catheter in place it usually requires a urologist. 4. He is undergoing hyperbaric oxygen treatment for this chronic cystitis. He is on the 28th session out of 42. 5. Ethyl alcohol abuse. 6. Hypertension. PAST SURGICAL HISTORY: Robotic-assisted laparoscopic prostatectomy followed by radiation. ALLERGIES: 1. AMLODIPINE. 2. LISINOPRIL. HOME MEDICATIONS: 1. Losartan. 2. Allopurinol. FAMILY HISTORY: A father from heart disease at age 58. Mother at age 72 from complications of Parkinson's. SOCIAL HISTORY: The patient and has three children. 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 Drinks two to three beers per day. Nonsmoker. REVIEW OF SYSTEMS: GENERAL: In general no night sweats, fever, heat and cold intolerance. SKIN: No psoriasis, itching or hives. HEAD, EYES, EARS, NOSE, THROAT: No blurred vision, hearing loss. RESPIRATORY: Positive for shortness of breath. CARDIOVASCULAR: As above in the history of present illness. GASTROINTESTINAL: No diarrhea, vomiting. GENITOURINARY: He has some occasional incontinence. Requires periodic catheterizations. NEUROLOGIC: No history of TIA, CVA or seizure disorder. ENDOCRINE: No history of hypothyroidism and/or diabetes mellitus. PHYSICAL EXAMINATION: VITAL SIGNS: On exam, blood pressure 158/90, heart rate of 100, temperature max 100. GENERAL: Patient is awake, alert and in no acute distress. HEAD, EYES, EARS, NOSE, THROAT: Head is normocephalic, atraumatic. Pupils equal and reactive. Oral mucosa pink, moist. NECK: The neck is supple. No JVD. HEART: Heart sounds S1, S2, regular rate and rhythm. There is a grade 3/6 systolic murmur best noted in the left sternal border. LUNGS: Clear to auscultation. No wheezes, rales or rhonchi. ABDOMEN: Abdomen is soft and nontender. He has an umbilical hernia. EXTREMITIES: No cyanosis, clubbing or edema. Good distal pulses. NEUROLOGIC: He is alert and oriented times three with no focal deficits. LABORATORY FINDINGS: Shows hemoglobin of 8.3, hematocrit of 27, white cell count 10.2, platelet count 241,000. Sodium 138, potassium 3.9, BUN of 14, creatinine 1.08. Triglycerides 83, cholesterol 130, HDL 46. INR 1.1. IMAGING STUDIES: Carotid ultrasound pending. Chest x-ray is pending. IMPRESSION: This is a 66-year-old male with severe aortic stenosis with positive for symptoms. Cardiac films have been evaluated by Dr. Leatha Agrawal. The plan will be for minimally invasive aortic valve replacement. Plan for surgery on February 10, 2017. The procedures, alternatives and risks have been discussed with the patient and he is agreeable to proceed. 2. In the meantime, the patient has some probable chronic anemia due to his history of prostate surgery and radiation. 3. Chronic cystitis secondary to prostate radiation. We will need to get input from his urologist, Dr. Carballo, in regards to catheter placement prior to surgery. Whether the patient comes in the night before for placement by urology versus being able to place the catheter in the day of surgery. We will contact and further evaluate this. DICTATED BY PRATEEK CHRISTIE. Leatha PETER/LINH /5:27 PM /8:27 AM
--- NOTE | 2017-01-31 11:24 | MA ---
cc: WOODY SOUZA DATE: 01/28/2017 INDICATION Severe aortic stenosis. PROCEDURE PERFORMED 1. Retrograde right and left heart catheterization with left ventriculography and selective coronary angiography. 2. Thermodilution cardiac output determination. 3. Thoracic aortography including aortic root, ascending thoracic aorta, aortic arch and descending thoracic aorta. 4. Moderate sedation. ACCESS SITE Right femoral artery and right femoral vein. EQUIPMENT USED 5 [place] pigtail catheter, AL-1 and AR modified coronary artery catheters, straight Glidewire, [place] catheter. Crossing the aortic vessel arbitrarily was difficult and multiple catheters and wires were used to obtain access to the left ventricle. MEDICATIONS Versed IV, Fentanyl IV, heparin IV. CONTRAST Omnipaque 130 cc. COMPLICATIONS None. ESTIMATED BLOOD LOSS Less than 10 cc. METHOD OF HEMOSTASIS Manual compression. RESULTS HEMODYNAMICS Heart rate 90 beats per minute. Left ventricular end-diastolic pressure 9 mmHg. Mean pulmonary capillary wedge pressure 25 mmHg. Pulmonary artery 65/30/46. Right ventricle 55/10. Mean right atrial pressure 12. Left ventricle 203/9. Aorta 145/71/108. Cardiac output 6.7 liters per minute by thermodilution. Calculated aortic valve area 0.76 centimeters squared. LEFT VENTRICULOGRAPHY AND THORACIC AORTOGRAPHY Ejection fraction 60%. Wall motion normal. No mitral regurgitation. There was no evidence of aortic insufficiency. There was evidence of mild ascending aortic dilatation. CORONARY ANGIOGRAPHY The left main coronary is patent. The left anterior descending coronary artery is patent. D1 is large and patent. D2 is patent. The left circumflex is patent. OM1 is patent. The right coronary artery is a dominant vessel which is patent. PDA is patent. PLV is patent. DIAGNOSIS 1. Severe aortic stenosis. 2. Preserved left ventricular systolic function. 3. Patent coronary arteries. 4. Moderate pulmonary hypertension. DISPOSITION Mr. Trimble was found to have evidence of severe aortic stenosis. We will obtain a cardiothoracic consultation to consider aortic valve replacement. We will also obtain bedside PFTs and pulmonary evaluation. MD CARLY Faria/JAMAL /11:01 AM /11:04 AM [facility] HOSPITALKeke
--- NOTE | 2017-02-03 10:13 | RSPPFT ---
DATE OF PROCEDURE: 01/28/17 COMMENTS: The forced vital capacity, FEV1,, FEV1/FVC ratio and FEF 25-75 are all normal. IMPRESSION: This is a normal spirometry.
== END 2017-01-28 19:18 | disposition home or self-care (01) ==
LOC: HDOC 07:25 → HDIC 07:26 → HDOC 19:18
PROVIDERS: ATTEND Internal Medicine Interventional Cardiology
DX: I35.0 Nonrheumatic aortic (valve) stenosis (principal); I10 Essential (primary) hypertension; D64.9 Anemia, unspecified; Z85.46 Personal history of malignant neoplasm of prostate; Z01.818 Encounter for other preprocedural examination
CPT/HCPCS: 71020; 80048; 80061; 81001; 82810; 85025; 85347; 85610; 85730; 87641; 93005; 93460; 93567; 93880; 94010; C1769; C1893; J1644; J2250; J3010; Q9967

== ENCOUNTER 2017-02-09 13:01 | Inpatient (IN) | payer MEDICARE, BC ==
[~2017-02-09] VITALS: Ht 167.6 cm; Wt 75.4 kg
[~2017-02-09 13:01] MED LIST changes: +ALLO100T PO
[2017-02-10] VITALS (10 sets, daily range): BP systolic 110–167; BP diastolic 38–86; PULSE 73–105; RESP 16–22; TEMP 98.1–99.1; O2SAT 94–99
[2017-02-10] MEDS ORDERED: PHENYLEPHRINE HCL 10 MG/ML VIAL IV ONE (05:00)
[2017-02-10] MEDS ORDERED: VECURONIUM BROMIDE 10 MG VIAL IV ONE ×2 (05:00→09:43)
[2017-02-10] MEDS ORDERED: CALCIUM CHLORIDE 10% SOLN 1 GRAM/10 ML SYR IV ONE (05:00)
[2017-02-10] MEDS ORDERED: ARTIFICIAL TEARS OPTH OINT 3.5 APPLIC/3.5 GM TUBO ONE (05:00)
[2017-02-10] MEDS ORDERED: LIDOCAINE HCL 1% 30 ML VIAL OTHER ONE (05:00)
[2017-02-10] MEDS ORDERED: NITROGLYCERIN-DEXTROSE INJ 250 ML IV ONE (05:00)
[2017-02-10] MEDS ORDERED: MAGNESIUM SULFATE 1000 MG/2 ML VIAL (PED) IV ONE (05:00)
[2017-02-10] MEDS ORDERED: PROTAMINE SULFATE 250 MG/25 ML VIAL IV ONE ×2 (05:00→09:43)
[2017-02-10] MEDS ORDERED: LIDOCAINE HCL 2% 100 MG/5 ML SYRINGE IV PUSH ONE (05:00)
[2017-02-10] MEDS ORDERED: AMINOCAPROIC ACID INJ 250 MG/ML 20 ML VIAL IV ONE (05:00)
[2017-02-10] MEDS ORDERED: HEPARIN SODIUM - SQ 10,000 UNITS/ML VIAL SQ ONE (05:00)
[2017-02-10] MEDS ORDERED: INSULIN REGULAR 100 UNITS in NS 100 ML IV SCH (06:00)
[2017-02-10] MEDS ORDERED: INSULIN HUMAN REGULAR 1,000 UNITS/10 ML VIAL SQ PRN (06:00)
[2017-02-10] MEDS ORDERED: METOPROLOL TARTRATE 25 MG TAB PO SCH (06:00)
[2017-02-10] MEDS ORDERED: LACTATED RINGER'S 1000 ML IV PRN (06:00)
[2017-02-10] MEDS ORDERED: CHLORHEXIDINE GLUCONATE 2 % 1 PACK (2 CLOTHS) TOPICAL PRN (06:00)
[2017-02-10] MEDS ORDERED: POVIDONE IODINE 5% (ANTISEPSIS KIT) 4 APPLICATIONS EACH NARE PRN (06:00)
[2017-02-10] MEDS ORDERED: SODIUM CHLORID 0.9% 500 ML IV PRN (06:00)
[2017-02-10] MEDS ORDERED: CEFAZOLIN 500 MG in NS IRR BTL 500 ML IRRIGATION SCH (06:00)
[2017-02-10] MEDS ORDERED: SODIUM CHLORIDE 0.9% FLUSH 10 ML FLUSH IV FLUSH PRN ×3 (06:00→12:15)
[2017-02-10] MEDS ORDERED: CHLORHEXIDINE GLUCONATE 4% SOLN 120 ML BTL TOPICAL SCH (06:00)
[2017-02-10] MEDS ORDERED: ceFAZolin 2 GM PREMIX 50 ML IV SCH (06:00)
[2017-02-10] MEDS ORDERED: METOPROLOL TARTRATE 25 MG TAB PO PRN (06:00)
[2017-02-10] MEDS ORDERED: METH40TA PO (06:22)
[2017-02-10] MEDS ORDERED: HEPARIN SODIUM - SQ 10,000 UNITS/ML VIAL ONE (06:33)
[2017-02-10] MEDS ORDERED: VANCOMYCIN HCL 1000 MG VIAL ONE (06:33)
[2017-02-10] MEDS ORDERED: ceFAZolin INJ 1,000 MG VIAL ONE (06:33)
[2017-02-10] MEDS ORDERED: ceFAZolin 2 GM PREMIX 50 ML ONE (06:34)
[2017-02-10] MEDS ORDERED: MIDAZOLAM HCL 5 MG/ML VIAL (1 ML) ONE (07:10)
[2017-02-10] MEDS ORDERED: BUPIVACAINE LIPOSO PF 1.3% INJ 20 ML, DEXAMETHASONE INJ 4 MG, MORPHINE INJ 10 MG in SOD... P-ARTICULR SCH (07:30)
[2017-02-10] MEDS ORDERED: HEPARIN SODIUM - IV 10,000 UNITS/10 ML VIAL ONE (07:45)
[2017-02-10] MEDS ORDERED: CUSTODIOL HTK IRR SOLN 1,000 ML ONE (07:45)
[2017-02-10] MEDS ORDERED: POTASSIUM CHLORIDE 20 MEQ/10 ML VIAL ONE (07:46)
[2017-02-10] MEDS ORDERED: MANNITOL INJ 50 ML ONE (07:46)
[2017-02-10] MEDS ORDERED: SODIUM BICARBONATE 8.4% INJ 50 MEQ/50 ML SYR ONE (07:47)
[2017-02-10] MEDS ORDERED: ALBUMIN HUMAN 25% 12.5 GM/50 ML BAGP IV ONE (07:47)
[2017-02-10] MEDS ORDERED: fentaNYL CITRATE 1000 MCG/20 ML VIAL ONE (07:58)
[2017-02-10] MEDS ORDERED: DEXMEDETOMIDINE HCL 200 MCG/2 ML VIAL ONE (09:27)
[2017-02-10] MEDS ORDERED: LACTATED RINGER'S 1000 ML INJ 2,000 ML IV ONE (09:44)
[2017-02-10] MEDS ORDERED: ePHEDrine/NS 25 MG/5 ML SYR IV ONE (09:44)
[2017-02-10] MEDS ORDERED: PHENYLEPH/NS 1000 MCG/10 ML SYR IV ONE (09:44)
[2017-02-10] MEDS ORDERED: SODIUM CHLOR 0.9% 250 ML INJ 500 ML IV ONE (09:45)
[2017-02-10] MEDS ORDERED: SODIUM CHLORID 0.9% 500 ML INJ 1,000 ML IV ONE (09:45)
[2017-02-10] MEDS ORDERED: NORMOSOL R INJ 2,000 ML IV ONE (09:46)
[2017-02-10] MEDS ORDERED: SUGAMMADEX SODIUM 200 MG/2 ML VIAL IV PUSH ONE ×2 (10:53)
[2017-02-10] MEDS ORDERED: DOBUTamine PREMIX DRIP 250 ML IV SCH (12:06)
[2017-02-10] MEDS ORDERED: LACTATED RINGER'S 1000 ML INJ 500 ML IV PRN (12:06)
[2017-02-10] MEDS ORDERED: POTASSIUM CHLOR 20 MEQ PREMIX 100 ML IV PRN ×3 (12:15)
[2017-02-10] MEDS ORDERED: oxyCODONE/ACETAMINOPHEN 5 MG/325 MG TAB PO PRN (12:15)
[2017-02-10] MEDS ORDERED: CLEVIDIPINE INJ 50 ML IV SCH (12:15)
[2017-02-10] MEDS ORDERED: MEPERIDINE HCL 25 MG/ML VIAL IV PRN (12:15)
[2017-02-10] MEDS ORDERED: INSULIN REGULAR (IV INFUSION) 100 UNITS in SODIUM CHLORIDE 0.9% INJ 99 ML IV SCH (12:15)
[2017-02-10] MEDS ORDERED: METOPROLOL TARTRATE 5 MG/5 ML VIAL IV PUSH PRN (12:15)
[2017-02-10] MEDS ORDERED: ACETAMINOPHEN 650 MG SUPP RECTAL PRN (12:15)
[2017-02-10] MEDS ORDERED: Post-op Orders (for Pharmacy) MISC OTHER ONE (12:15)
[2017-02-10] MEDS ORDERED: POTASSIUM CHLORIDE 20 MEQ CONTROLLED RELEASE TAB PO PRN ×2 (12:15)
[2017-02-10] MEDS ORDERED: DEXMEDETOMIDINE INJ 200 MCG in SODIUM CHLORIDE 0.9% INJ 50 ML IV SCH (12:15)
[2017-02-10] MEDS ORDERED: MAGNESIUM SULFATE INJ 2 GM in SODIUM CHLORIDE 0.9% INJ 100 ML IV PRN ×4 (12:15)
[2017-02-10] MEDS ORDERED: ALBUMIN HUMAN 5% 12.5 GM/250 ML BOTTLE IV PRN (12:15)
[2017-02-10] MEDS ORDERED: PHENYLEPHRINE INJ 40 MG in DEXTROSE 5% IN WATE 500 ML INJ 496 ML IV SCH ×2 (12:15)
[2017-02-10] MEDS ORDERED: CALCIUM CHLORIDE INJ 1 GM in SODIUM CHLORIDE 0.9% INJ 100 ML IV PRN (12:15)
[2017-02-10] MEDS ORDERED: DEXTROSE 50% IN WATER 50 ML VIAL(D50) IV PUSH PRN (12:15)
[2017-02-10] MEDS ORDERED: EPINEPHrine (1:1000) INJ 4 MG in DEXTROSE 5% IN WATER INJ 246 ML IV SCH ×2 (12:15)
[2017-02-10] MEDS ORDERED: CALCIUM CHLORIDE 10% 1 GRAM/10 ML VIAL IV PRN (12:15)
[2017-02-10] MEDS ORDERED: ACETAMINOPHEN 325 MG TAB PO PRN (12:15)
[2017-02-10] MEDS ORDERED: DOPamine INJ PREMIX 500 ML IV SCH (12:15)
[2017-02-10] MEDS ORDERED: NITROGLYCERIN-DEXTROSE INJ 250 ML IV SCH (12:15)
[2017-02-10] MEDS ORDERED: ONDANSETRON HCL 4 MG/2 ML VIAL IV PUSH PRN (12:15)
[2017-02-10] MEDS ORDERED: RESP: ALBUTEROL 2.5 MG/IPRATROPIUM 0.5 MG NEB (PRN) NEB (13:15)
[2017-02-10] MEDS ORDERED: RESP: RACEPINEPHRINE 2.25% 0.5 ML NEB NEB PRN (13:15)
[2017-02-10] MEDS ORDERED: PILL SPLITTER OTHER PRN (13:15)
[2017-02-10] MEDS: ACETAMINOPHEN 1000 MG/100 ML VIAL IV SCH ×2 (14:01→20:00)
--- NOTE | 2017-02-10 14:08 | RADRPT ---
EXAM DATE/TIME: 02/10/2017 13:12 [facility] COMPARISON: CHEST PA & LAT, January 28, 2017, 17:36. INDICATIONS : Post CABG. MEDICAL HISTORY : None. SURGICAL HISTORY : None. ENCOUNTER: Initial ACUITY: 1 day PAIN SCORE: Non-responsive. LOCATION: Bilateral chest FINDINGS: Portable supine AP view of the chest demonstrates a normal-sized cardiac silhouette. Right IJ central line is present with distal tip in the right atrium. Large bore right chest tube is present with tip at the apex of the hemithorax. No pneumothorax is visualized. Multiple EKG lines overlie the patient . No unexpected radiopaque foreign body is seen. No effusion, consolidation, or pneumothorax is ident ified. CONCLUSION: Right IJ line distal tip in the SVC. No pneumothorax is visualized. A right chest tube is present. Olu Queen MD on February 10, 2017 at 14:05 Board Certified Radiologist. This report was verified electronically.
[2017-02-10] MEDS: ceFAZolin 2 GM PREMIX 50 ML IV SCH ×2 (14:36→22:15)
[2017-02-10 15:20] LABS: BICARBONATE 25.7 MEQ/L (21.0-32.0); MAGNESIUM 2.7 MG/DL (1.5-2.5); POTASSIUM 4.4 MEQ/L (3.5-5.1)
--- NOTE | 2017-02-10 15:29 | PD.OP ---
cc: Andra Fung MD; Saw Han MD Operative Report Date of Surgery: February 10, 2017 Preoperative Diagnosis: Postoperative Diagnosis: Procedure: 1. Minimally Invasive AVR with a 23 Mosaic Cinch Tissue Valve 2. Left Percutaneous Femoral Arterial and Venous Cannulation for CPB 3. Intercostal Nerve Block 4. Perclose Arterial Closure x 2 . Surgeon: Andra Fung Tar Roofer(s): Manohar Quispe Operation and Findings: PREOPERATIVE DIAGNOSIS: 1. Severe Aortic Valve Stenosis 2. Prostate Cancer 3. Hemorrhagic Cystitis POSTOPERATIVE DIAGNOSIS: Same PRPCEDURE: 1. Minimally Invasive AVR with a 23 Mosaic Cinch Tissue Valve 2. Left Percutaneous Femoral Arterial and Venous Cannulation for CPB 3. Intercostal Nerve Block 4. Perclose Arterial Closure x 2 ANESTHESIA: REYNALDO Cho MD STORM DOOR MAKER: Vinayak Ho [facility] INDICATIONS: This is a 67 yo patient with severe Aortic stenosis presenting for surgical correction of their underlying cardiac pathology. PROCEDURE: Standard monitoring lines were placed. With his h/o prostate cancer and cystitis , he had a Wells placed by his Urologist yesterday in the office. General anesthesia was induced. The patient was prepped and draped in a sterile fashion. Percutaneous access was gained to the left femoral artery and vein. Two Perclose devices were placed on the artery for later closure. The patient was heparinized for cardiopulmonary bypass. The left femoral artery was cannulated with a 17 Biomedicus arterial cannula percutaneously using standard seldinger technique. Similarly, the left femoral vein was cannulated with a 21 Biomedicus cannula under SUE guidance and the tip was confirmed to be in the SVC. A 6 cm right anterior thoracotomy was performed and the 3rd rib was shingled. The right internal mammary artery and vein were ligated and divided. An Pablo retractor was placed followed by a small chest retractor. The pericardium was opened and a pericardial sling was created using interrupted 0 silk sutures. A small 1 cm incision was made at the 6th intercostal space and an LV vent and pericardial suction were placed through this access port. The LV vent was placed through the Right Superior Pulmonary Vein. The aorta was dissected posteriorly for crossclamp placement. The patient was placed on cardiopulmonary bypass. An aortic cross-clamp was applied and the heart was arrested using cold blood cardioplegia delivered through a 14F catheter. 1.5 L of antegrade Custodiol cardioplegia was infused directly into the aortic root. The aorta was opened above the sinotubular ridge and the aortic valve was exposed. The right and left coronary were identified. On opening the aorta, the valve appeared severely calcified with retracted cusps. The valve was resected as well as all annular calcification and was sized for a 23 mm Medtronic Mosaic Cinch tissue valve which was placed with 2-0 pledgeted Tycron valve sutures. The valve seated well. The aorta was closed with two layers of running 4-0 Prolene suture, the first in a horizontal mattress fashion and the second layer of simple running. The patient was systemically rewarmed. The heart was vigorously deaired with a clamp on. Ventricular pacing wire was placed. The clamp was removed, deairing continued. Upon achieving normothermia and intrinsic cardiac activity, the patient was weaned from cardiopulmonary bypass. Strict hemostasis was assured and Protamine administered. Decannulation was carried out without incident and the femoral artery was closed with the Perclose devices. The entry site to the vein was closed with a horizontal mattress suture of 2-0 Silk following manual pressure. There was no adverse reaction. Intraoperative SUE following the procedure showed a well-seated aortic valve with no perivalvular leak and preserved ventricular function. A 32-Faroese chest tube was positioned in the right pleural space and secured with 2-0 silk sutures. The 3rd rib was reapproximated to the sternum using a [id number] 0 Ethibond stitch, and to the adjacent rib with a 0 Vicryl suture. Intercostal nerve block was preformed at the level of the incision as well as 2 rib spaces abpve and below using Exparel solution. The fascia and pectoralis were closed with 0 Vicryl. The subcutaneous tissue was closed using a running 3-0 Monocryl suture. The skin was closed with 4-0 Monocryl. Sterile dressings were placed. At the end of the operation, all sponge, instruments, and needle counts were correct. The patient tolerated the procedure well. He was extubated in the OR and transferred to the CVICU in stable condition. Andra Fung MD February 10, 2017 15:29
[2017-02-10] MEDS: oxyCODONE/ACETAMINOPHEN 5 MG/325 MG TAB PO PRN ×3 (16:25→23:23)
[2017-02-10] MEDS: RESP: ALBUTEROL 2.5 MG/IPRATROPIUM 0.5 MG NEB (SCH) NEB ×2 (17:09→21:24)
[2017-02-10] MEDS: hydrALAZINE HCL 20 MG/ML VIAL IV PRN (17:52)
[2017-02-10] MEDS: AMIODARONE 200 MG TAB PO SCH (19:56)
[2017-02-10] MEDS: METOPROLOL TARTRATE 25 MG TAB PO SCH (19:57)
[2017-02-10] MEDS: SODIUM CHLORIDE 0.9% FLUSH 10 ML FLUSH IV FLUSH SCH (19:58)
[2017-02-10] MEDS: MORPHINE SULFATE 4 MG/ML INJ IV PRN ×2 (21:44→23:22)
[2017-02-11] VITALS (24 sets, daily range): BP systolic 110–156; BP diastolic 48–74; PULSE 67–96; RESP 16–20; TEMP 97.6–100; O2SAT 93–100
[2017-02-11] MEDS: ACETAMINOPHEN 1000 MG/100 ML VIAL IV SCH (02:00)
[2017-02-11] MEDS: hydrALAZINE HCL 20 MG/ML VIAL IV PRN (02:03)
[2017-02-11] MEDS: MORPHINE SULFATE 4 MG/ML INJ IV PRN ×3 (02:23→12:14)
[2017-02-11] MEDS: RESP: ALBUTEROL 2.5 MG/IPRATROPIUM 0.5 MG NEB (SCH) NEB ×7 (04:12→22:17)
--- NOTE | 2017-02-11 04:37 | RADRPT ---
EXAM DATE/TIME: 02/11/2017 03:03 [place] COMPARISON: CHEST SINGLE AP, February 10, 2017, 13:12. INDICATIONS : Status post CABG. MEDICAL HISTORY : None. SURGICAL HISTORY : None. ENCOUNTER: Subsequent ACUITY: 2 days PAIN SCORE: Non-responsive. LOCATION: chest FINDINGS: A single view of the chest demonstrates right-sided chest tube and right-sided jugular central line s table in position. No pneumothorax. Bibasilar atelectasis. Heart enlarged. Osseous structures are in tact. CONCLUSION: Stable chest. No pneumothorax. Kenneth Fuentes MD on February 11, 2017 at 4:34 Board Certified Radiologist. This report was verified electronically.
[2017-02-11 05:04] LABS: HEMATOCRIT 29.8 % (39.0-51.0); MEAN CELL VOLUME 73.8 FL (80.0-100.0); MEAN CORPUSCULAR HEMOGLOBIN 22.8 PG (27.0-34.0); MEAN CORPUSCULAR HGB CONC 30.9 % (32.0-36.0); PLATELET COUNT 181 TH/MM3 (150-450); RED BLOOD COUNT 4.04 MIL/MM3 (4.50-5.90); RED CELL DISTRIBUTION WIDTH 17.9 % (11.6-17.2); WHITE BLOOD COUNT 20.6 TH/MM3 (4.0-11.0)
[2017-02-11 05:06] LABS: REVIEW FLAG FINAL
[2017-02-11 05:32] LABS: MAGNESIUM 2.2 MG/DL (1.5-2.5); POTASSIUM 4.2 MEQ/L (3.5-5.1)
[2017-02-11] MEDS: PANTOPRAZOLE SOD 40 MG DELAYED RELEASE TAB PO SCH (06:07)
[2017-02-11] MEDS: ceFAZolin 2 GM PREMIX 50 ML IV SCH ×3 (06:08→22:00)
[2017-02-11] MEDS ORDERED: FUROSEMIDE 40 MG/4 ML VIAL IV PUSH ONE (07:30)
[2017-02-11] MEDS ORDERED: BISACODYL 10 MG SUPP RECTAL PRN (07:30)
[2017-02-11] MEDS ORDERED: DEXTROSE 50% IN WATER 50 ML VIAL(D50) IV PRN (07:30)
[2017-02-11] MEDS ORDERED: SOD PHOSPHATE/SOD BIPHOSPHATE (ADULT) ENEMA 133ML RECTAL PRN (07:30)
[2017-02-11] MEDS ORDERED: GLUCAGON 1 MG/ML VIAL OTHER PRN (07:30)
[2017-02-11] MEDS: SODIUM CHLORIDE 0.9% FLUSH 10 ML FLUSH IV FLUSH SCH ×2 (07:49→22:01)
[2017-02-11] MEDS: KETOROLAC TROMETHAMINE 30 MG/ML (IVP) VIAL IV PUSH PRN ×2 (07:50→17:04)
[2017-02-11] MEDS ORDERED: CLOPIDOGREL 75 MG TAB PO SCH (09:00)
[2017-02-11] MEDS: METOPROLOL TARTRATE 25 MG TAB PO SCH ×3 (09:00→22:01)
[2017-02-11] MEDS: METHADONE HCL 10 MG TAB PO SCH (09:18)
[2017-02-11] MEDS: MAGNESIUM HYDROXIDE SUSP 30 ML CUP PO SCH (09:18)
[2017-02-11] MEDS: ATORVASTATIN 40 MG TAB PO SCH (09:20)
[2017-02-11] MEDS: MULTIVITAMINS/MINERALS THERAPEUTIC TAB PO SCH (09:20)
[2017-02-11] MEDS: AMIODARONE 200 MG TAB PO SCH ×2 (09:20→22:00)
[2017-02-11] MEDS: ASPIRIN 81 MG CHEW TAB PO SCH (09:20)
[2017-02-11] MEDS: CLOPIDOGREL 75 MG TAB PO SCH (09:22)
[2017-02-11] MEDS: INSULIN ASPART SUPPLEMENTAL SCALE SQ SCH ×4 (10:00→22:00)
--- NOTE | 2017-02-11 13:45 | PD.CAR.PN ---
CVT Progress Note Subjective/Hospital Course: 02/10 PROCEDURE: 1. Minimally Invasive AVR with a 23 Mosaic Cinch Tissue Valve 2. Left Percutaneous Femoral Arterial and Venous Cannulation for CPB 3. Intercostal Nerve Block 4. Perclose Arterial Closure x 2 02/11 Doing well Transfer telemetry Maintain CT Objective: Vital Signs Date Time Temp Pulse Resp B/P Pulse Ox O2 Delivery O2 Flow Rate FiO2 02/11/17 12:31 98.4 67 16 123/67 96 02/11/17 12:28 18 02/11/17 12:06 18 02/11/17 10:00 98.2 96 18 156/74 97 02/11/17 09:20 100 21 02/11/17 09:19 16 02/11/17 09:00 88 02/11/17 09:00 98 Nasal Cannula 2.00 02/11/17 08:00 80 02/11/17 08:00 98.9 84 16 138/68 98 139/51 02/11/17 07:00 83 02/11/17 03:00 94 02/11/17 03:00 100.0 88 20 133/69 93 124/48 02/10/17 23:00 98.1 90 22 148/70 98 155/51 02/10/17 23:00 91 02/10/17 21:24 95 Nasal Cannula 2.00 02/10/17 19:00 78 02/10/17 19:00 98.5 85 20 151/86 98 167/54 02/10/17 17:09 98 Nasal Cannula 2.00 02/10/17 15:00 99.1 74 16 129/38 98 110/57 02/10/17 15:00 73 02/10/17 14:20 98.9 Labs: Laboratory Tests Test 02/11/17 04:44 White Blood Count 20.6 TH/MM3 (4.0-11.0) Red Blood Count 4.04 MIL/MM3 (4.50-5.90) Hemoglobin 9.2 GM/DL (13.0-17.0) Hematocrit 29.8 % (39.0-51.0) Mean Corpuscular Volume 73.8 FL (80.0-100.0) Mean Corpuscular Hemoglobin 22.8 PG (27.0-34.0) Mean Corpuscular Hemoglobin 30.9 % Concent (32.0-36.0) Red Cell Distribution Width 17.9 % (11.6-17.2) Platelet Count 181 TH/MM3 (150-450) Mean Platelet Volume 7.8 FL (7.0-11.0) Sodium Level 137 MEQ/L (136-145) Potassium Level 4.2 MEQ/L (3.5-5.1) Chloride Level 103 MEQ/L (98-107) Carbon Dioxide Level 25.0 MEQ/L (21.0-32.0) Anion Gap 9 MEQ/L (5-15) Blood Urea Nitrogen 19 MG/DL (7-18) Creatinine 1.05 MG/DL (0.60-1.30) Estimat Glomerular Filtration 71 ML/MIN (>89) Rate Random Glucose 94 MG/DL (74-106) Calcium Level 8.5 MG/DL (8.5-10.1) Magnesium Level 2.2 MG/DL (1.5-2.5) Result Diagram: 02/11/17 0444 02/11/17 0444 (1) (aortic stenosis) (2) S/P AVR (aortic valve replacement) Andra Fung MD February 11, 2017 13:45
--- NOTE | 2017-02-11 15:24 | EKG ---
Date Performed: 02/11/2017 Time Performed: 05:20:34 PTAGE: 67 years EKG: Sinus rhythm . Possible inferior infarct - age undetermined Abnormal ECG PREVIOUS TRACING : 01/28/2017 08.01 DOCTOR: Conner Nicholas Interpretating Date/Time 02/11/2017 15:22:23
[2017-02-11] MEDS: DOCUSATE SODIUM 100 MG CAP PO SCH (22:00)
[2017-02-11] MEDS: oxyCODONE/ACETAMINOPHEN 5 MG/325 MG TAB PO PRN (22:00)
[2017-02-11] MEDS: SENNOSIDES 8.6 MG TAB PO SCH (22:01)
[2017-02-12] VITALS (29 sets, daily range): BP systolic 95–148; BP diastolic 53–71; PULSE 65–84; RESP 16–20; TEMP 97.8–98.7; O2SAT 94–99
[2017-02-12] MEDS: INSULIN ASPART SUPPLEMENTAL SCALE SQ SCH ×5 (02:00→21:00)
[2017-02-12 05:21] LABS: BASOPHIL # 0.1 TH/MM3 (0-0.2); BASOPHIL % 0.4 % (0.0-2.0); EOSINOPHIL % 0.2 % (0.0-4.0); HEMATOCRIT 25.6 % (39.0-51.0); LYMPH % 5.7 % (9.0-44.0); LYMPHOCYTE # 0.8 TH/MM3 (1.0-4.8); MEAN CELL VOLUME 73.9 FL (80.0-100.0); MEAN CORPUSCULAR HEMOGLOBIN 23.7 PG (27.0-34.0); MONO % 10.8 % (0.0-8.0); NEUT % 82.9 % (16.0-70.0); PLATELET COUNT 164 TH/MM3 (150-450); RED BLOOD COUNT 3.46 MIL/MM3 (4.50-5.90); RED CELL DISTRIBUTION WIDTH 18.5 % (11.6-17.2); WHITE BLOOD COUNT 14.5 TH/MM3 (4.0-11.0)
[2017-02-12 05:27] LABS: HEMO FLAGS AUTO DIFF
[2017-02-12] MEDS: PANTOPRAZOLE SOD 40 MG DELAYED RELEASE TAB PO SCH (05:45)
[2017-02-12] MEDS: oxyCODONE/ACETAMINOPHEN 5 MG/325 MG TAB PO PRN ×2 (05:45→09:50)
[2017-02-12 05:59] LABS: BICARBONATE 27.2 MEQ/L (21.0-32.0); MAGNESIUM 2.5 MG/DL (1.5-2.5); POTASSIUM 4.4 MEQ/L (3.5-5.1)
[2017-02-12 07:20] LABS: OVALOCYTES 1+ (NORMAL); PLATELET ESTIMATE SMEAR NORMAL (NORMAL); PLATELET MORPHOLOGY NORMAL (NORMAL); SCAN/DIFF AUTO DIFF CONFIRMED
[2017-02-12] MEDS: RESP: ALBUTEROL 2.5 MG/IPRATROPIUM 0.5 MG NEB (SCH) NEB ×3 (08:19→21:06)
[2017-02-12] MEDS: SODIUM CHLORIDE 0.9% FLUSH 10 ML FLUSH IV FLUSH SCH ×2 (09:00→21:56)
--- NOTE | 2017-02-12 09:26 | PD.CAR.PN ---
CVT Progress Note Subjective/Hospital Course: 02/10 PROCEDURE: 1. Minimally Invasive AVR with a 23 Mosaic Cinch Tissue Valve 2. Left Percutaneous Femoral Arterial and Venous Cannulation for CPB 3. Intercostal Nerve Block 4. Perclose Arterial Closure x 2 02/11 Doing well Transfer telemetry Maintain CT 02/12 D/C CT Wells issues. Continues to have clots with occlusion of catheter. Urology evaluation Discharge planning Objective: Vital Signs Date Time Temp Pulse Resp B/P Pulse Ox O2 Delivery O2 Flow Rate FiO2 02/12/17 08:00 70 02/12/17 07:00 68 02/12/17 07:00 97.8 70 18 129/71 98 02/12/17 06:00 70 02/12/17 05:00 74 02/12/17 04:00 67 02/12/17 03:10 98.3 70 16 104/64 94 02/12/17 03:00 68 02/12/17 02:00 72 02/12/17 01:00 71 02/12/17 00:00 72 02/11/17 23:20 98.4 77 16 110/65 95 02/11/17 23:00 75 02/11/17 23:00 75 02/11/17 22:00 80 02/11/17 22:00 80 02/11/17 21:00 78 02/11/17 21:00 78 02/11/17 20:00 90 02/11/17 20:00 90 02/11/17 19:45 98.3 80 18 125/67 97 Arterial Line 02/11/17 19:04 93 21 02/11/17 19:00 78 02/11/17 19:00 78 02/11/17 18:18 18 02/11/17 18:00 78 02/11/17 17:15 97.6 77 18 129/65 96 02/11/17 17:00 76 02/11/17 16:00 80 02/11/17 15:00 79 02/11/17 14:00 76 02/11/17 13:00 76 02/11/17 12:31 98.4 67 16 123/67 96 02/11/17 12:28 18 02/11/17 12:06 18 02/11/17 12:00 70 02/11/17 11:00 76 02/11/17 10:00 98.2 96 18 156/74 97 Labs: Laboratory Tests Test 02/12/17 05:05 White Blood Count 14.5 TH/MM3 (4.0-11.0) Red Blood Count 3.46 MIL/MM3 (4.50-5.90) Hemoglobin 8.2 GM/DL (13.0-17.0) Hematocrit 25.6 % (39.0-51.0) Mean Corpuscular Volume 73.9 FL (80.0-100.0) Mean Corpuscular Hemoglobin 23.7 PG (27.0-34.0) Mean Corpuscular Hemoglobin 32.0 % Concent (32.0-36.0) Red Cell Distribution Width 18.5 % (11.6-17.2) Platelet Count 164 TH/MM3 (150-450) Mean Platelet Volume 8.0 FL (7.0-11.0) Neutrophils (%) (Auto) 82.9 % (16.0-70.0) Lymphocytes (%) (Auto) 5.7 % (9.0-44.0) Monocytes (%) (Auto) 10.8 % (0.0-8.0) Eosinophils (%) (Auto) 0.2 % (0.0-4.0) Basophils (%) (Auto) 0.4 % (0.0-2.0) Neutrophils # (Auto) 12.0 TH/MM3 (1.8-7.7) Lymphocytes # (Auto) 0.8 TH/MM3 (1.0-4.8) Monocytes # (Auto) 1.6 TH/MM3 (0-0.9) Eosinophils # (Auto) 0.0 TH/MM3 (0-0.4) Basophils # (Auto) 0.1 TH/MM3 (0-0.2) CBC Comment AUTO DIFF Differential Comment AUTO DIFF CONFIRMED Platelet Estimate NORMAL (NORMAL) Platelet Morphology Comment NORMAL (NORMAL) Ovalocytes 1+ (NORMAL) Sodium Level 133 MEQ/L (136-145) Potassium Level 4.4 MEQ/L (3.5-5.1) Chloride Level 98 MEQ/L (98-107) Carbon Dioxide Level 27.2 MEQ/L (21.0-32.0) Anion Gap 8 MEQ/L (5-15) Blood Urea Nitrogen 32 MG/DL (7-18) Creatinine 1.30 MG/DL (0.60-1.30) Estimat Glomerular Filtration 55 ML/MIN (>89) Rate Random Glucose 111 MG/DL (74-106) Calcium Level 8.4 MG/DL (8.5-10.1) Magnesium Level 2.5 MG/DL (1.5-2.5) Result Diagram: 02/12/17 0505 02/12/17 0505 (1) (aortic stenosis) (2) S/P AVR (aortic valve replacement) Andra Fung MD February 12, 2017 09:26
[2017-02-12] MEDS: POLYETHYLENE GLYCOL 17 GM PKG PO SCH (09:42)
[2017-02-12] MEDS: MAGNESIUM HYDROXIDE SUSP 30 ML CUP PO SCH (09:42)
[2017-02-12] MEDS: MULTIVITAMINS/MINERALS THERAPEUTIC TAB PO SCH (09:42)
[2017-02-12] MEDS: ASPIRIN 81 MG CHEW TAB PO SCH (09:42)
[2017-02-12] MEDS: METHADONE HCL 10 MG TAB PO SCH (09:42)
[2017-02-12] MEDS: DOCUSATE SODIUM 100 MG CAP PO SCH ×2 (09:49→21:55)
[2017-02-12] MEDS: CLOPIDOGREL 75 MG TAB PO SCH (09:49)
[2017-02-12] MEDS: ATORVASTATIN 40 MG TAB PO SCH (09:49)
[2017-02-12] MEDS: AMIODARONE 200 MG TAB PO SCH ×2 (09:49→21:55)
[2017-02-12] MEDS: METOPROLOL TARTRATE 25 MG TAB PO SCH ×2 (09:50→21:55)
--- NOTE | 2017-02-12 13:00 | PD.CONS ---
HPI Service Urology Consult Requested By Reason for Consult Gross hematuria Primary Care Physician Unknown Diagnosis: History of Present Illness 67-year-old gentleman with history prostate cancer diagnosed approximately 7 years ago who was treated in [place] with a robot-assisted laparoscopic radical prostatectomy. Patient also received postoperative radiation therapy as a precaution against recurrent disease although he informs me that his post- prostatectomy PSA was nondetectable. 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 Nacho Carballo who is the patient's local urologist. Patient is presently being managed with hyperbaric oxygen therapy. He was recently admitted for aortic valve replacement and reports that his urine had been yellow and clear up until last night where he once again developed urgency and noted gross hematuria. Review of Systems Constitutional: DENIES: Fever, Night Sweats Genitourinary: COMPLAINS OF: Urgency, Hematuria Except as stated in HPI: all other systems reviewed are Neg Past Family Social History Past Medical History Prostate cancer Radiation cystitis Aortic stenosis Hypertension Past Surgical History Status post aortic valve replacement (present hospitalization) Status post robot-assisted laparoscopic radical prostatectomy with subsequent radiation therapy Reported Medications Refer to EMR Allergies: Coded Allergies: Lisinopril (Verified Adverse Reaction, Severe, anaphylaxis, 02/10/17) Amlodipine (Verified Adverse Reaction, Intermediate, Bilateral Lower Extremity Pitting Edema, 02/10/17) Active Ordered Medications Refer to EMR Family History Reviewed and noncontributory Social History Denies tobacco or intravenous drug abuse history Occasional alcohol use Physical Exam Vital Signs Date Time Temp Pulse Resp B/P Pulse Ox O2 Delivery O2 Flow Rate FiO2 02/12/17 12:00 66 02/12/17 11:00 97.9 70 18 105/58 98 02/12/17 11:00 74 02/12/17 10:00 78 02/12/17 09:00 70 02/12/17 08:19 95 21 02/12/17 08:00 70 02/12/17 07:00 68 02/12/17 07:00 97.8 70 18 129/71 98 02/12/17 06:00 70 02/12/17 05:00 74 02/12/17 04:00 67 02/12/17 03:10 98.3 70 16 104/64 94 02/12/17 03:00 68 02/12/17 02:00 72 02/12/17 01:00 71 02/12/17 00:00 72 02/11/17 23:20 98.4 77 16 110/65 95 02/11/17 23:00 75 02/11/17 23:00 75 02/11/17 22:00 80 02/11/17 22:00 80 02/11/17 21:00 78 02/11/17 21:00 78 02/11/17 20:00 90 02/11/17 20:00 90 02/11/17 19:45 98.3 80 18 125/67 97 Arterial Line 02/11/17 19:04 93 21 02/11/17 19:00 78 02/11/17 19:00 78 02/11/17 18:18 18 02/11/17 18:00 78 02/11/17 17:15 97.6 77 18 129/65 96 02/11/17 17:00 76 02/11/17 16:00 80 02/11/17 15:00 79 02/11/17 14:00 76 02/11/17 13:00 76 Physical Exam GENERAL: This is a well-nourished, well-developed patient, in no apparent distress. SKIN: No rashes, ecchymoses or lesions. Cool and dry. HEAD: Atraumatic. Normocephalic. No temporal or scalp tenderness. EYES: Pupils equal round and reactive. Extraocular motions intact. No scleral icterus. No injection or drainage. ENT: Nose without bleeding, purulent drainage or septal hematoma. Throat without erythema, tonsillar hypertrophy or exudate. Uvula midline. Airway patent. NECK: Trachea midline. No JVD or lymphadenopathy. Supple, nontender, no meningeal signs. GASTROINTESTINAL: Abdomen soft, non-tender, nondistended. No hepato-splenomegaly , or palpable masses. No guarding. GENITOURINARY: Bladder moderately distended, normal male external genitalia MUSCULOSKELETAL: Extremities without clubbing, cyanosis, or edema. No joint tenderness, effusion, or edema noted. No calf tenderness. Negative Homans sign bilaterally. NEUROLOGICAL: Awake and alert. Cranial nerves II through XII intact. Motor and sensory grossly within normal limits. Five out of 5 muscle strength in all muscle groups. Normal speech. Laboratory Tests Test 02/12/17 05:05 White Blood Count 14.5 Red Blood Count 3.46 Hemoglobin 8.2 Hematocrit 25.6 Mean Corpuscular Volume 73.9 Mean Corpuscular Hemoglobin 23.7 Mean Corpuscular Hemoglobin 32.0 Concent Red Cell Distribution Width 18.5 Platelet Count 164 Mean Platelet Volume 8.0 Neutrophils (%) (Auto) 82.9 Lymphocytes (%) (Auto) 5.7 Monocytes (%) (Auto) 10.8 Eosinophils (%) (Auto) 0.2 Basophils (%) (Auto) 0.4 Neutrophils # (Auto) 12.0 Lymphocytes # (Auto) 0.8 Monocytes # (Auto) 1.6 Eosinophils # (Auto) 0.0 Basophils # (Auto) 0.1 CBC Comment AUTO DIFF Differential Comment AUTO DIFF CONFIRMED Platelet Estimate NORMAL Platelet Morphology Comment NORMAL Ovalocytes 1+ Sodium Level 133 Potassium Level 4.4 Chloride Level 98 Carbon Dioxide Level 27.2 Anion Gap 8 Blood Urea Nitrogen 32 Creatinine 1.30 Estimat Glomerular Filtration 55 Rate Random Glucose 111 Calcium Level 8.4 Magnesium Level 2.5 Result Diagram: 02/12/17 0505 02/12/17 0505 Imaging Last Impressions Chest X-Ray 02/11/17 0500 Signed Impressions: Service Date/Time: Saturday, February 11, 2017 03:03 - CONCLUSION: Stable chest. No pneumothorax. Kenneth Fuentes MD Hospital Course 18 Arabic 3-way Wells catheter placed at the bedside with grossly bloody output. Continuous bladder irrigation ordered. 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 Chavo Platt MD February 12, 2017 13:00
[2017-02-12] MEDS: SENNOSIDES 8.6 MG TAB PO SCH (21:55)
[2017-02-13] VITALS (17 sets, daily range): BP systolic 107–129; BP diastolic 62–67; PULSE 56–85; RESP 18; TEMP 97.8–98.3; O2SAT 94–97
[2017-02-13] MEDS: PANTOPRAZOLE SOD 40 MG DELAYED RELEASE TAB PO SCH (05:38)
[2017-02-13] MEDS: INSULIN ASPART SUPPLEMENTAL SCALE SQ SCH (05:39)
[2017-02-13] MEDS ORDERED: METO25TA3 PO (08:43)
[2017-02-13] MEDS ORDERED: ATOR40TA16 PO (08:43)
[2017-02-13] MEDS ORDERED: Aspirin Chew PO (08:43)
[2017-02-13] MEDS ORDERED: AMIO200T PO (08:43)
[2017-02-13] MEDS ORDERED: DOCU1CAP39 PO (08:43)
[2017-02-13] MEDS ORDERED: PLAV75TA29 PO (08:43)
--- NOTE | 2017-02-13 08:44 | HHI.DS ---
Discharge Summary Admission Date February 10, 2017 at 05:21 Discharge Date: February 13, 2017 Admitting Diagnosis CBC/BMP: 02/12/17 0505 02/12/17 0505 Significant Findings Laboratory Tests Test 02/10/17 02/11/17 02/12/17 14:20 04:44 05:05 Estimat Glomerular Filtration 61 ML/MIN (>89) 71 ML/MIN (>89) 55 ML/MIN (>89) Rate Random Glucose 121 MG/DL 111 MG/DL (74-106) (74-106) Calcium Level 8.3 MG/DL 8.4 MG/DL (8.5-10.1) (8.5-10.1) Magnesium Level 2.7 MG/DL (1.5-2.5) White Blood Count 20.6 TH/MM3 14.5 TH/MM3 (4.0-11.0) (4.0-11.0) Red Blood Count 4.04 MIL/MM3 3.46 MIL/MM3 (4.50-5.90) (4.50-5.90) Hemoglobin 9.2 GM/DL 8.2 GM/DL (13.0-17.0) (13.0-17.0) Hematocrit 29.8 % 25.6 % (39.0-51.0) (39.0-51.0) Mean Corpuscular Volume 73.8 FL 73.9 FL (80.0-100.0) (80.0-100.0) Mean Corpuscular Hemoglobin 22.8 PG 23.7 PG (27.0-34.0) (27.0-34.0) Mean Corpuscular Hemoglobin 30.9 % Concent (32.0-36.0) Red Cell Distribution Width 17.9 % 18.5 % (11.6-17.2) (11.6-17.2) Blood Urea Nitrogen 19 MG/DL (7-18) 32 MG/DL (7-18) Neutrophils (%) (Auto) 82.9 % (16.0-70.0) Lymphocytes (%) (Auto) 5.7 % (9.0-44.0) Monocytes (%) (Auto) 10.8 % (0.0-8.0) Neutrophils # (Auto) 12.0 TH/MM3 (1.8-7.7) Lymphocytes # (Auto) 0.8 TH/MM3 (1.0-4.8) Monocytes # (Auto) 1.6 TH/MM3 (0-0.9) Ovalocytes 1+ (NORMAL) Sodium Level 133 MEQ/L (136-145) Hospital Course Subjective/Hospital Course: 02/10 PROCEDURE: 1. Minimally Invasive AVR with a 23 Mosaic Cinch Tissue Valve 2. Left Percutaneous Femoral Arterial and Venous Cannulation for CPB 3. Intercostal Nerve Block 4. Perclose Arterial Closure x 2 02/11 Doing well Transfer telemetry Maintain CT 02/12 D/C CT Wells issues. Continues to have clots with occlusion of catheter. Urology evaluation Discharge planning 02/13 D/C Home Discharge Disposition: Disch w/ Home Health Serv Discharge Instructions DIET: Follow Instructions for: As Tolerated, No Restrictions Activities you can perform: Full Weight Bearing, Shower Only-No Bath Activities to avoid: Lifting/Bending, Driving Follow up Referrals: Appointment for Follow Up Internal Medicine New Medications: Amiodarone (Amiodarone) 200 Mg Tab 400 MG PO Q12HR z Days 14 TAB Atorvastatin (Atorvastatin) 40 Mg Tab 40 MG PO DAILY Cholesterol Management Days 90 TAB Clopidogrel (Plavix) 75 Mg Tab 75 MG PO DAILY z Days 90 TAB Docusate Sodium (Dok) 100 Mg Cap 100 MG PO BID Constipation Days 30 CAP Metoprolol Tartrate (Metoprolol Tartrate) 25 Mg Tab 25 MG PO BID z Days 30 TAB ([Aspirin Chew]) 81 MG CHEW 81 MG PO DAILY Days 90 TAB.CHEW Continued Medications: Methadone (Methadone) 40 Mg Tab 45 MG PO DAILY Ref 0 TAB Discontinued Medications: Losartan (Losartan) 100 Mg Tab 100 MG PO DAILY STOP 3 DAYS PRIOR TO SURGERY Blood Pressure Management #30 Ref 0 TAB Andra Fung MD February 13, 2017 08:44
--- NOTE | 2017-02-13 08:46 | HHI.FF ---
Face to Face Verification Diagnosis: (1) (aortic stenosis) (2) S/P AVR (aortic valve replacement) (3) Irradiation cystitis with hematuria Home Health Nursing Order: Medical education Signs/symptoms of disease process Nursing assessment with vital signs I have seen patient John Trimble on 02/13/17. My clinical findings support the need for the requested home health care services because: Deconditioned w/ increased weakness I certify that my clinical findings support that this patient is homebound because: Post-op weakness Andra Fung MD February 13, 2017 08:46
[2017-02-13] MEDS: METHADONE HCL 10 MG TAB PO SCH (09:12)
[2017-02-13] MEDS: CLOPIDOGREL 75 MG TAB PO SCH (09:12)
[2017-02-13] MEDS: METOPROLOL TARTRATE 25 MG TAB PO SCH (09:13)
[2017-02-13] MEDS: AMIODARONE 200 MG TAB PO SCH (09:13)
[2017-02-13] MEDS: ASPIRIN 81 MG CHEW TAB PO SCH (09:13)
[2017-02-13] MEDS: MULTIVITAMINS/MINERALS THERAPEUTIC TAB PO SCH (09:13)
[2017-02-13] MEDS: DOCUSATE SODIUM 100 MG CAP PO SCH (09:13)
[2017-02-13] MEDS: ATORVASTATIN 40 MG TAB PO SCH (09:13)
[2017-02-13] MEDS: SODIUM CHLORIDE 0.9% FLUSH 10 ML FLUSH IV FLUSH SCH (09:18)
[2017-02-13] MEDS: POLYETHYLENE GLYCOL 17 GM PKG PO SCH (09:22)
[2017-02-13] MEDS: MAGNESIUM HYDROXIDE SUSP 30 ML CUP PO SCH (09:22)
[2017-02-13] MEDS: RESP: ALBUTEROL 2.5 MG/IPRATROPIUM 0.5 MG NEB (SCH) NEB (09:29)
[2017-02-13] MEDS ORDERED: BISACODYL 10 MG SUPP RECTAL ONE (13:15)
[2017-02-13] MEDS ORDERED: SOD PHOSPHATE/SOD BIPHOSPHATE (ADULT) ENEMA 133ML RECTAL PRN (13:15)
--- NOTE | 2017-02-13 14:00 | HHI.PR ---
Subjective Patient symptoms today Patient reports Wells catheter has been removed and he is voiding spontaneously Continues to have hematuria but back to his typical baseline Denies suprapubic pressure or urgency symptoms Objective Vital Signs Vital Signs Date Time Temp Pulse Resp B/P Pulse Ox O2 Delivery O2 Flow Rate FiO2 02/13/17 11:45 97.8 73 18 115/67 97 02/13/17 07:47 98.3 61 18 107/62 96 02/13/17 07:47 61 02/13/17 07:18 94 02/13/17 06:13 60 02/13/17 05:05 85 02/13/17 04:00 68 02/13/17 03:15 65 02/13/17 03:00 97.9 75 18 129/65 96 02/13/17 02:38 66 02/13/17 01:10 71 02/13/17 00:21 79 02/12/17 23:52 98.7 83 20 148/67 97 02/12/17 23:00 84 02/12/17 21:15 72 02/12/17 21:06 99 21 02/12/17 21:00 72 02/12/17 20:18 98.3 73 18 124/63 95 02/12/17 20:16 73 02/12/17 19:22 74 02/12/17 18:00 65 02/12/17 17:00 66 02/12/17 16:00 71 02/12/17 15:00 98.1 67 18 95/53 95 02/12/17 15:00 66 02/12/17 14:00 68 Intake & Output 02/13/17 02/13/17 06:59 18:59 Intake Total 360 ml Balance 360 ml Intake Oral 360 ml # Voids 3 Result Diagram: 02/12/17 0505 02/12/17 0505 Objective Remarks Physical exam unchanged Medications and IVs Current Medications Medications (Trade) Dose Ordered Sig/Dre Route Start Time Stop Time Status Last Admin (NS Flush) 2 ml BID IV FLUSH 02/10/17 21:00 02/13/17 09:18 (NS Flush) 2 ml UNSCH PRN IV FLUSH 02/10/17 12:15 (Albumin 5% Inj) 12.5 gm UNSCH PRN IV 02/10/17 12:15 (Aspirin Chew) 81 mg DAILY PO 02/11/17 09:00 02/13/17 09:13 (Plavix) 75 mg DAILY PO 02/11/17 09:00 02/13/17 09:12 (Protonix) 40 mg DAILY@06 PO 02/11/17 06:00 02/13/17 05:38 (Cordarone) 400 mg Q12HR PO 02/10/17 21:00 02/13/17 09:13 (Tylenol) 650 mg Q4H PRN PO 02/10/17 12:15 (Tylenol Supp) 650 mg Q4H PRN RECTAL 02/10/17 12:15 (Morphine Inj) 1 mg Q10M PRN IV 02/10/17 12:15 02/11/17 12:14 (Demerol Inj) 12.5 mg Q4H PRN IV 02/10/17 12:15 (Percocet 5-325 Mg) 1 tab Q3H PRN PO 02/10/17 12:15 (Percocet 5-325 Mg) 2 tab Q3H PRN PO 02/10/17 12:15 02/12/17 09:50 (fentaNYL INJ) 25 mcg Q1H PRN IV 02/10/17 12:15 02/10/17 14:36 (Zofran Inj) 4 mg Q6H PRN IV PUSH 02/10/17 12:15 (Apresoline Inj) 10 mg Q4H PRN IV 02/10/17 12:15 02/11/17 02:03 Metoprolol Tartrate 2.5 mg 2.5 mg Q1H PRN IV PUSH 02/10/17 12:15 Potassium Chloride 100 ml @ 50 mls/hr UNSCH PRN IV 02/10/17 12:15 Potassium Chloride 100 ml @ 50 mls/hr UNSCH PRN IV 02/10/17 12:15 Potassium Chloride 100 ml @ 50 mls/hr UNSCH PRN IV 02/10/17 12:15 Magnesium Sulfate 2 gm/Sodium Chloride 104 ml @ 100 mls/hr UNSCH PRN IV 02/10/17 12:15 Magnesium Sulfate 2 gm/Sodium Chloride 104 ml @ 50 mls/hr UNSCH PRN IV 02/10/17 12:15 (Calcium Chloride Inj/NS Inj) 110 ml @ 100 mls/hr UNSCH PRN IV 5/4/17 12:15 02/10/17 16:19 Calcium Chloride 0.5 gm 0.5 gm UNSCH PRN IV 02/10/17 12:15 (NovoLIN R (IV INFUSION)/NS Inj) 100 ml @ 0 mls/hr TITRATE IV 02/10/17 12:15 (D50w (Vial) Inj) 25 ml UNSCH PRN IV PUSH 02/10/17 12:15 (Pill Splitter) 1 ea UNSCH PRN OTHER 02/10/17 13:15 (Dolophine) 45 mg DAILY PO 02/11/17 09:00 02/13/17 09:12 (Colace) 100 mg BID PO 02/11/17 21:00 02/13/17 09:13 (Theragran M Tab) 1 tab DAILY PO 02/11/17 09:00 02/13/17 09:13 (Lipitor) 40 mg DAILY PO 02/11/17 09:00 02/13/17 09:13 (Milk Of Magnesia Liq) 30 ml DAILY PO 02/11/17 09:00 02/13/17 09:22 (Miralax) 17 gm DAILY PO 02/12/17 09:00 02/13/17 09:22 (Senokot) 8.6 mg HS PO 02/11/17 21:00 02/12/17 21:55 (Fleets Enema (Adult)) 133 ml UNSCH PRN RECTAL 02/11/17 07:30 (Lopressor) 25 mg BID PO 02/11/17 09:00 02/13/17 09:13 (D50w (Vial) Inj) 25 ml UNSCH PRN IV 02/11/17 07:30 (Glucagon Inj) 1 mg UNSCH PRN OTHER 02/11/17 07:30 (NovoLOG SUPPLEMENTAL SCALE) 1 ACHS SQ 02/12/17 11:00 02/12/17 16:34 Assessment and Plan Assessment and Plan Urologic impression: #1 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 Chavo Platt MD February 13, 2017 14:00
== END 2017-02-13 15:25 | disposition home health service (06) | DRG 220 ==
LOC: HSDI 02-10 05:21 → HCVR 02-10 12:44 → HCIN 02-11 09:57
PROVIDERS: ADMIT Thoracic Surgery (Cardiothoracic Vascular Surgery); ATTEND Thoracic Surgery (Cardiothoracic Vascular Surgery)
PROC: B246ZZ4 Ultrasonography of Right and Left Heart, Transesophageal (ICD-10-PCS; 2017-02-10)
PROC: 3E0T3CZ (ICD-10-PCS; 2017-02-10)
PROC: 02RF08Z Replacement of Aortic Valve with Zooplastic Tissue, Open Approach (ICD-10-PCS; principal; 2017-02-10 07:08)
PROC: 5A1221Z Performance of Cardiac Output, Continuous (ICD-10-PCS; 2017-02-10 07:08)
DX: I35.0 Nonrheumatic aortic (valve) stenosis (principal); N30.41 Irradiation cystitis with hematuria; I10 Essential (primary) hypertension; Y84.2 Radiological procedure and radiotherapy as the cause of abnormal reaction of the patient, or of later complication, without mention of misadventure at the time of the procedure; Z85.46 Personal history of malignant neoplasm of prostate
CPT/HCPCS: 36415; 36430; 71010; 76937; 80048; 82948; 83735; 85014; 85025; 85027; 86850; 86900; 86901; 86920; 86921; 86922; 88305; 93005; 93318; 94150; 94640; 94664; 94667; 94668; C9290; J0131; J0360; J0690; J1100; J1644; J1815; J1817; J1885; J1940; J2150; J2250; J2270; J2370; J2720; J3010; J3370; J3475; J3480; J7040; J7050; J7120; P9016; P9047

== ENCOUNTER 2018-01-19 12:10 | Inpatient (IN) | payer MEDICARE ==
[~2018-01-19] VITALS: Ht 170.2 cm; Wt 62.0 kg
[~2018-01-19 12:10] MED LIST changes: +ASPI81TA16 PO; +DOCU1CAP39 PO; +FERR324T4 PO; +HYDR25TA5 PO; +LEVO50TA4 PO; +OXYB5TAB8 PO
[2018-01-19 12:31] VITALS: BP 131/66; PULSE 123; RESP 18; TEMP 99.3; O2SAT 99
--- NOTE | 2018-01-19 13:42 | RADRPT ---
EXAM DATE/TIME: 01/19/2018 13:07 [facility] COMPARISON: CHEST SINGLE AP, February 11, 2017, 3:03. CHEST PA & LAT, January 28, 2017, 17:36. INDICATIONS : Short of breath and dizzy for 3 days. Lower extremity swelling. Upper extremity numbness. MEDICAL HISTORY : Cardiovascular disease. SURGICAL HISTORY : CABG. Aortic valve replacement. ENCOUNTER: Initial ACUITY: 3 days PAIN SCORE: 0/10 LOCATION: Bilateral chest FINDINGS: There is evidence of a mass-like lesion measuring 5.1 cm in the expected region of the anterior media stinum which is indeterminate. CT of the chest with contrast would be helpful for further evaluation of this finding. No focal infiltrate is noted. No pulmonary vascular congestion is noted. The heart i s normal in size. CONCLUSION: Mass-like lesion measuring 5.1 cm in the expected region of the anterior mediastinum which is indeter minate. CT of the chest with contrast would be helpful for further evaluation of this finding. Eddie Peralta MD on January 19, 2018 at 13:37 Board Certified Radiologist. This report was verified electronically.
[2018-01-19 16:51] VITALS: BP 149/70; PULSE 102; RESP 21; O2SAT 100
[2018-01-19] MEDS ORDERED: SPIR25TA PO (16:54)
[2018-01-19] MEDS ORDERED: SODIUM CHLOR 0.9% 1000 ML INJ 1,000 ML IV ONE (16:56)
[2018-01-19] MEDS ORDERED: SODIUM CHLORIDE 0.9% FLUSH 10 ML FLUSH IVF PRN (17:00)
[2018-01-19] MEDS ORDERED: MECLIZINE HCL 25 MG TAB PO ONE (17:00)
[2018-01-19 17:09] VITALS: BP_SYST 126; BP_SYST 130; BP_SYST 131; BP_DIAS 64; BP_DIAS 67; BP_DIAS 73; RESP 19; RESP 20; RESP 21
[2018-01-19 17:24] LABS: INTERNATIONAL NORMALIZED RATIO 1.5 RATIO; PROTHROMBIN TIME - PATIENT 14.8 SEC (9.8-11.6)
--- NOTE | 2018-01-19 17:25 | PD ---
HPI Chief Complaint: General Weakness Time Seen by Provider: 16:46 Travel History International Travel<30 days: No Contact w/Intl Traveler<30days: No Traveled to known affect area: No History of Present Illness HPI 67-year-old male presents to the emergency department for evaluation of dizziness and generalized weakness. Patient states 2 weeks ago, he started with bilateral ankle swelling. He states he had an ultrasound and saw his student success advisor, Dr. Han, who told him to start Spirolactone. He discontinued all of his other medications per his student success advisor and started on spironolactone. He states he saw Dr. Han 10 days ago. Patient states that since then, he has been dizzy and generally weak. He states the dizziness is worse with movement. He denies any syncope or falls, but states that he has almost fallen on several occasions. Reports shortness of breath, but denies chest pain. No abdominal pain. No nausea, vomiting, diarrhea. No headache or visual changes. He does report history of aortic valve replacement, prostatectomy. He was previously on medication for hypertension, but has been off of it due to his blood pressure being regulated. Patient denies any history of CHF. He denies any pain at this time. Exacerbating factor is movement. No alleviating factors. Moderate severity. PFSH Past Medical History Blood Disorders: No Heart Rhythm Problems: No Cancer: Yes (PROSTATE CANCER) Cardiovascular Problems: Yes High Cholesterol: No Chemotherapy: No Chest Pain: No Congestive Heart Failure: No Diabetes: No Endocrine: No Gastrointestinal Disorders: No Glaucoma: No Genitourinary: Yes (HISTORY OF PROSTATE CANCER, TOLBERT PLACED 02/09/17 FOR CLOTS ) Hepatitis: No Hiatal Hernia: No Hypertension: Yes Immune Disorder: No Musculoskeletal: No Neurologic: No Psychiatric: No Reproductive: No Respiratory: No Integumentary: No Radiation Therapy: No Thyroid Disease: No ?: Not Past Surgical History Abdominal Surgery: Yes (RIGHT INGUINAL HERNIA REPAIR WITH MESH 2000) AICD: No Body Medical Devices: MESH RIGHT INGUINAL HERNIA Cardiac Surgery: Yes (HEART CATH 01/28/17) Ear Surgery: No Eye Surgery: No Genitourinary Surgery: Yes (PROSTATECTOMY 2009) Gynecologic Surgery: No Joint Replacement: No Oral Surgery: No Pacemaker: No Prostatectomy: Yes Thoracic Surgery: No Social History Alcohol Use: Yes (OCCAS) Tobacco Use: No Substance Use: No Allergies-Medications (Allergen,Severity, Reaction): Coded Allergies: lisinopril (Verified Adverse Reaction, Severe, anaphylaxis, 01/19/18) amlodipine (Verified Adverse Reaction, Intermediate, Bilateral Lower Extremity Pitting Edema, 01/19/18) Reported Meds & Prescriptions Reported Meds & Active Scripts Active Reported Spironolactone 25 Mg Tab 25 Mg PO DAILY Review of Systems Except as stated in HPI: all other systems reviewed are Neg Physical Exam Narrative GENERAL: Well-nourished, well-developed male patient, afebrile. SKIN: Focused skin assessment warm/dry. HEAD: Normocephalic. Atraumatic. ENT: Mucosa pink and moist. No erythema or exudates. No uvular edema. No uvular , palatal, or tonsillar deviation. Airway patent. Nasal turbinates appear normal without nasal blood, purulent drainage or septal hematoma. Bilateral tympanic membranes are clear without erythema or perforation. EYES: No scleral icterus. No injection or drainage. NECK: Supple, trachea midline. No JVD or lymphadenopathy. CARDIOVASCULAR: Regular rate and rhythm without murmurs, gallops, or rubs. Bilateral radial and pedal pulses are 2+. RESPIRATORY: Breath sounds equal bilaterally. No accessory muscle use. Lungs sounds are clear to auscultation. GASTROINTESTINAL: Abdomen soft, non-tender, nondistended. MUSCULOSKELETAL: No cyanosis, or edema. Bilateral upper and lower extremity strength 5/5. All extremities are neurovascularly intact. BACK: Nontender without obvious deformity. No CVA tenderness. Data Data Last Documented VS Vital Signs Date Time Temp Pulse Resp B/P (MAP) Pulse Ox O2 Delivery O2 Flow Rate FiO2 01/19/18 17:09 105 19 131/67 (88) 103 20 130/73 (92) 108 21 126/64 (84) 01/19/18 17:09 Room Air 01/19/18 16:51 100 01/19/18 12:31 99.3 Orders Orders Complete Blood Count With Diff (01/19/18 12:34) Chest, Pa & Lat (01/19/18 12:34) Electrocardiogram (01/19/18 12:34) Comprehensive Metabolic Panel (01/19/18 16:56) Magnesium (Mg) (01/19/18 16:56) B-Type Natriuretic Peptide (01/19/18 16:56) Ckmb (Isoenzyme) Profile (01/19/18 16:56) Troponin I (01/19/18 16:56) Act Partial Throm Time (Ptt) (01/19/18 16:56) Prothrombin Time / Inr (Pt) (01/19/18 16:56) Urinalysis - C+S If Indicated (01/19/18 16:56) Ct Brain W/O Iv Contrast(Rout) (01/19/18 16:56) Ecg Monitoring (01/19/18 16:56) Iv Access Insert/Monitor (01/19/18 16:56) Oximetry (01/19/18 16:56) Meclizine (Antivert) (01/19/18 17:00) Sodium Chloride 0.9% Flush (Ns Flush) (01/19/18 17:00) Sodium Chlor 0.9% 1000 Ml Inj (Ns 1000 M (01/19/18 16:56) Ct Pulmonary Angiogram (01/19/18 ) Us Leg Venous Doppler Bilat (01/19/18 ) Orthostatic Vital Signs (01/19/18 16:56) Thyroid Stimulating Hormone (01/19/18 17:03) Iohexol 350 Inj (Omnipaque 350 Inj) (01/19/18 19:16) Metoprolol Tartrate Inj (Lopressor Inj) (01/19/18 20:15) Metoprolol Tartrate (Lopressor) (01/19/18 20:15) Admit Order (Ed Use Only) (01/19/18 20:38) Labs Laboratory Tests Test 01/19/18 17:00 01/19/18 17:55 Prothrombin Time 14.8 SEC Prothromb Time International Ratio 1.5 RATIO Activated Partial Thromboplast Time 41.8 SEC Blood Urea Nitrogen 22 MG/DL Creatinine 1.41 MG/DL Random Glucose 102 MG/DL Total Protein 6.8 GM/DL Albumin 2.7 GM/DL Calcium Level 9.2 MG/DL Magnesium Level 1.6 MG/DL Alkaline Phosphatase 129 U/L Aspartate Amino Transf (AST/SGOT) 41 U/L Alanine Aminotransferase (ALT/SGPT) 19 U/L Total Bilirubin 1.8 MG/DL Sodium Level 124 MEQ/L Potassium Level 4.4 MEQ/L Chloride Level 90 MEQ/L Carbon Dioxide Level 24.4 MEQ/L Anion Gap 10 MEQ/L Estimat Glomerular Filtration Rate 50 ML/MIN Total Creatine Kinase 26 U/L Troponin I 0.05 NG/ML B-Type Natriuretic Peptide 191 PG/ML Thyroid Stimulating Hormone 3rd Gen 6.590 uIU/ML White Blood Count 7.8 TH/MM3 Red Blood Count 3.51 MIL/MM3 Hemoglobin 10.8 GM/DL Hematocrit 32.7 % Mean Corpuscular Volume 93.0 FL Mean Corpuscular Hemoglobin 30.6 PG Mean Corpuscular Hemoglobin Concent 32.9 % Red Cell Distribution Width 15.9 % Platelet Count 99 TH/MM3 Mean Platelet Volume 8.4 FL Neutrophils (%) (Auto) 84.6 % Lymphocytes (%) (Auto) 7.7 % Monocytes (%) (Auto) 7.5 % Eosinophils (%) (Auto) 0.0 % Basophils (%) (Auto) 0.2 % Neutrophils # (Auto) 6.6 TH/MM3 Lymphocytes # (Auto) 0.6 TH/MM3 Monocytes # (Auto) 0.6 TH/MM3 Eosinophils # (Auto) 0.0 TH/MM3 Basophils # (Auto) 0.0 TH/MM3 CBC Comment AUTO DIFF Differential Comment AUTO DIFF CONFIRMED Platelet Estimate LOW Platelet Morphology Comment NORMAL MDM Medical Decision Making Medical Screen Exam Complete: Yes Emergency Medical Condition: Yes Medical Record Reviewed: Yes Interpretation(s) Last Impressions Head CT 01/19/18 1656 Signed Impressions: Service Date/Time: January 19:08 - CONCLUSION: Negative noncontrast head CT. John Rubio MD Chest X-Ray 01/19/18 1234 Signed Impressions: Service Date/Time: January 13:07 - CONCLUSION: Mass-like lesion measuring 5.1 cm in the expected region of the anterior mediastinum which is indeterminate. CT of the chest with contrast would be helpful for further evaluation of this finding. Eddie Peralta MD Lower Extremity Ultrasound 01/19/18 0000 Signed Impressions: Service Date/Time: January 17:26 - CONCLUSION: Negative exam with no evidence of deep venous thrombosis. John Ruboi MD CT Angiography 01/19/18 0000 Signed Impressions: Service Date/Time: January 19:12 - CONCLUSION: 1. 2 large saccular aneurysms extending off the aortic root which is abnormally dilated. There are postsurgical changes consistent with probable valve replacement surgery. There is a small amount of fluid and soft tissue stranding which is nonspecific and the aortic wall is not significantly thickened. Infection should be considered. 2. No evidence of pulmonary embolism. 3. Splenomegaly and ascites in the upper abdomen. These findings were called to Dr. Guerrero in the emergency room at 1957 hrs. John Rubio MD Differential Diagnosis Intracranial abnormality versus electrolyte abnormality versus dehydration versus vertigo versus ACS versus PE Narrative Course 67-year-old male presents to the emergency department for evaluation of generalized weakness and dizziness. Chest x-ray done in triage shows a masslike lesion measuring 5.1 cm and the expected region of the anterior mediastinum which is indeterminate, CT of the chest with contrast to be helpful for further evaluation of this finding. EKG shows sinus rhythm with occasional PVC, heart rate 99, no acute ST changes. CBC, CMP, magnesium, BNP, TSH, CK, troponin, PTT, PT/INR, UA are ordered and pending. CT of the brain, CT pulmonary angiogram, venous Doppler ultrasound of the bilateral lower extremities are ordered and pending. Patient is given normal saline 1 L IV bolus, meclizine 25 mg by mouth. Orthostatic vital signs are ordered and pending. CBC shows no acute abnormality. CMP shows hyponatremia 124, BUN 22, currently 1.41, bilirubin 1.8, AST 41, alkaline phosphatase 129. Magnesium is 1.6. BNP is 191. TSH is 6.590. CK is 26. Troponin is 0.05. Coags show no acute abnormality. CT of the brain shows is negative. CT pulmonary angiogram was too large saccular aneurysms extending off the aortic root which is abnormally dilated, there are postsurgical changes consistent with probable valve replacement surgery, there is a small amount of fluid in soft tissue stranding which is nonspecific in the aortic wall is not significantly thickened, infection should be considered. US is negative for DVT. Orthostatic VS are negative for orthostatic hypotension. I spoke to Dr. Fung, cardiothoracic surgeon. He states that he will see the patient in the morning. [facility] is paged for admission. Dr. Porter accepted admission. Diagnosis Primary Impression: Hyponatremia Additional Impressions: Aortic aneurysm Qualified Codes: I71.2 - Thoracic aortic aneurysm, without rupture Generalized weakness Admitting Information Admitting Physician Requests: Admit Jenn Raygoza Jan 19, 2018 17:25
[2018-01-19 17:42] LABS: ALBUMIN 2.7 GM/DL (3.4-5.0); ALT (GPT) 19 U/L (12-78); AST (GOT) 41 U/L (15-37); BICARBONATE 24.4 MEQ/L (21.0-32.0); BLOOD UREA NITROGEN 22 MG/DL (7-18); CALCIUM 9.2 MG/DL (8.5-10.1); CHLORIDE 90 MEQ/L (98-107); CREATININE 1.41 MG/DL (0.60-1.30); GLOMERULAR FILTRATION RATE 50 ML/MIN (>89); GLUCOSE,RANDOM 102 MG/DL (74-106); MAGNESIUM 1.6 MG/DL (1.5-2.5)
[2018-01-19 17:46] LABS: ALKALINE PHOSPHATASE 129 U/L (45-117); TOTAL BILIRUBIN ADULT 1.8 MG/DL (0.2-1.0); TOTAL PROTEIN 6.8 GM/DL (6.4-8.2); TROPONIN I 0.05 NG/ML (0.02-0.05)
[2018-01-19 17:47] LABS: SODIUM (NA) 124 MEQ/L (136-145)
[2018-01-19 18:10] LABS: AUTOMATED NEUTROPHIL # 6.6 TH/MM3 (1.8-7.7); BASOPHIL % 0.2 % (0.0-2.0); HEMATOCRIT 32.7 % (39.0-51.0); HEMOGLOBIN 10.8 GM/DL (13.0-17.0); LYMPH % 7.7 % (9.0-44.0); LYMPHOCYTE # 0.6 TH/MM3 (1.0-4.8); MEAN CORPUSCULAR HEMOGLOBIN 30.6 PG (27.0-34.0); MEAN CORPUSCULAR HGB CONC 32.9 % (32.0-36.0); MEAN PLATELET VOLUME 8.4 FL (7.0-11.0); MONO % 7.5 % (0.0-8.0); MONOCYTE # 0.6 TH/MM3 (0-0.9); NEUT % 84.6 % (16.0-70.0); PLATELET COUNT 99 TH/MM3 (150-450); RED BLOOD COUNT 3.51 MIL/MM3 (4.50-5.90); RED CELL DISTRIBUTION WIDTH 15.9 % (11.6-17.2); WHITE BLOOD COUNT 7.8 TH/MM3 (4.0-11.0)
--- NOTE | 2018-01-19 18:25 | RADRPT ---
EXAM DATE/TIME: 01/19/2018 17:26 [facility] COMPARISON: No previous studies available for comparison. EXTERNAL COMPARISON : [facility], US LEG, RIGHT VENOUS DOPPLER, January 20, 2015 INDICATIONS : Bilateral leg swelling. MEDICAL HISTORY : Hypertension. Hernia. Carcinoma, prostate. Urinary tract infection. SURGICAL HISTORY : Prostatectomy. Heart catheterization. Hernia repair. Cervical discectomy. ENCOUNTER: Initial ACUITY: 1 day PAIN SCORE: 3/10 LOCATION: Bilateral leg. TECHNIQUE: Venous ultrasound of the left and right leg was performed from the inguinal ligament to the proximal calf. Real-time, color Doppler and spectral tracing, compression and augmentation techniques were us ed. FINDINGS: RIGHT LEG: There is normal compressibility of the deep venous system from the inguinal region to the proximal ca lf. No echogenic clot is seen in the lumen of the common femoral, femoral, popliteal, and posterior tibial veins. There is a normal response of the venous system to proximal and distal augmentation an d respiration. LEFT LEG: There is normal compressibility of the deep venous system from the inguinal region to the proximal ca lf. No echogenic clot is seen in the lumen of the common femoral, femoral, popliteal, and posterior tibial veins. There is a normal response of the venous system to proximal and distal augmentation an d respiration. CONCLUSION: Negative exam with no evidence of deep venous thrombosis. John Rubio MD on January 19, 2018 at 18:22 Board Certified Radiologist. This report was verified electronically.
[2018-01-19] MEDS ORDERED: IOHEXOL 350 MG/ML 10 ML VIAL (for RAD DIAG) IVCONTRAST ONE (19:16)
--- NOTE | 2018-01-19 19:35 | RADRPT ---
EXAM DATE/TIME: 01/19/2018 19:08 [facility] COMPARISON: No previous studies available for comparison. INDICATIONS : Dizziness. RADIATION DOSE: 44.63 CTDIvol (mGy) MEDICAL HISTORY : Cardiovascular disease. Hypertension. Carcinoma, prostate. SURGICAL HISTORY : None. ENCOUNTER: Initial ACUITY: 1 day PAIN SCALE: 5/10 LOCATION: cranial TECHNIQUE: Multiple contiguous axial images were obtained of the head. Using automated exposure control and adj ustment of the mA and/or kV according to patient size, radiation dose was kept as low as reasonably a chievable to obtain optimal diagnostic quality images. DICOM format image data is available electro nically for review and comparison. FINDINGS: CEREBRUM: The ventricles are normal for age. No evidence of midline shift, mass lesion, hemorrhage or acute in farction. No extra-axial fluid collections are seen. POSTERIOR FOSSA: The cerebellum and brainstem are intact. The 4th ventricle is midline. The cerebellopontine angle i s unremarkable. EXTRACRANIAL: The visualized portion of the orbits is intact. SKULL: The calvaria is intact. No evidence of skull fracture. CONCLUSION: Negative noncontrast head CT. John Rubio MD on January 19, 2018 at 19:32 Board Certified Radiologist. This report was verified electronically.
--- NOTE | 2018-01-19 20:02 | RADRPT ---
EXAM DATE/TIME: 01/19/2018 19:12 [facility] COMPARISON: CHEST SINGLE AP, February 11, 2017, 3:03. CHEST SINGLE AP, February 10, 2017, 13:12. CHEST PA & LAT, January, 13:07. CHEST PA & LAT, January 28, 2017, 17:36. INDICATIONS : Prior shortness of breath and weakness. IV CONTRAST: 75 cc Omnipaque 350 (iohexol) IV RADIATION DOSE: 14.21 CTDIvol (mGy) MEDICAL HISTORY : Cardiovascular disease. Hypertension. Carcinoma, prostate. SURGICAL HISTORY : None. ENCOUNTER: Initial ACUITY: 1 day PAIN SCALE: 0/10 LOCATION: chest TECHNIQUE: Volumetric scanning of the chest was performed using a pulmonary embolism protocol MIP images were re constructed. Using automated exposure control and adjustment of the mA and/or kV according to patien t size, radiation dose was kept as low as reasonably achievable to obtain optimal diagnostic quality images. DICOM format image data is available electronically for review and comparison. Follow-up recommendations for detected pulmonary nodules are based at a minimum on nodule size and pa tient risk factors according to Fleischner Society Guidelines. FINDINGS: PULMONARY ARTERIES: No filling defects are seen in the pulmonary arteries through the segmental level. LUNGS: There is no consolidation or pneumothorax . No concerning pulmonary nodule is visualized. PLEURAE: There is no pleural thickening or pleural effusion. MEDIASTINUM: There are postsurgical changes involving the root of the aorta which is dilated and measures up to ap proximately 6.2 x 4.7 cm in diameter. There are 2 saccular aneurysms arising from the aortic root. Th e larger is located on the anterior right lateral aorta measures up to 3.8 x 3.2 centimeters. The sma ller is located more inferior and anterior and measures up to 2.7 x 2.2 cm. Both of these aneurysms e nhance to the same degree as the aortic root. There is small amount of fluid and stranding along the medial aspect of the smaller aneurysm. Aortic wall is not significantly thickened. MUSCULOSKELETAL: Within normal limits for patient age. MISCELLANEOUS: Is a small amount of ascitic fluid surrounding the liver and spleen. There is evidence of hepatosplen omegaly. CONCLUSION: 1. 2 large saccular aneurysms extending off the aortic root which is abnormally dilated. There are po stsurgical changes consistent with probable valve replacement surgery. There is a small amount of flu id and soft tissue stranding which is nonspecific and the aortic wall is not significantly thickened. Infection should be considered. 2. No evidence of pulmonary embolism. 3. Splenomegaly and ascites in the upper abdomen. These findings were called to Dr. Guerrero in the emergency room at 1957 hrs. John Rubio MD on January 19, 2018 at 19:43 Board Certified Radiologist. This report was verified electronically.
--- NOTE | 2018-01-19 20:07 | PD ---
Physical Exam Date Seen by Provider: Jan 19, 2018 Time Seen by Provider: 20:[address] chest IV done and I was called by radiologist to discuss findings of Aneursyms coming off the aortic root to ascending with 2 saccular aneursym 3.8cm and another near root 2.7cm pt is given lopressor 2.[address] Fung called of cardiothoracic Data Data Last Documented VS Vital Signs Date Time Temp Pulse Resp B/P (MAP) Pulse Ox O2 Delivery O2 Flow Rate FiO2 01/19/18 17:09 105 19 131/67 (88) 103 20 130/73 (92) 108 21 126/64 (84) 01/19/18 17:09 Room Air 01/19/18 16:51 100 01/19/18 12:31 99.3 Orders Orders Complete Blood Count With Diff (01/19/18 12:34) Chest, Pa & Lat (01/19/18 12:34) Electrocardiogram (01/19/18 12:34) Comprehensive Metabolic Panel (01/19/18 16:56) Magnesium (Mg) (01/19/18 16:56) B-Type Natriuretic Peptide (01/19/18 16:56) Ckmb (Isoenzyme) Profile (01/19/18 16:56) Troponin I (01/19/18 16:56) Act Partial Throm Time (Ptt) (01/19/18 16:56) Prothrombin Time / Inr (Pt) (01/19/18 16:56) Urinalysis - C+S If Indicated (01/19/18 16:56) Ct Brain W/O Iv Contrast(Rout) (01/19/18 16:56) Ecg Monitoring (01/19/18 16:56) Iv Access Insert/Monitor (01/19/18 16:56) Oximetry (01/19/18 16:56) Meclizine (Antivert) (01/19/18 17:00) Sodium Chloride 0.9% Flush (Ns Flush) (01/19/18 17:00) Sodium Chlor 0.9% 1000 Ml Inj (Ns 1000 M (01/19/18 16:56) Ct Pulmonary Angiogram (01/19/18 ) Us Leg Venous Doppler Bilat (01/19/18 ) Orthostatic Vital Signs (01/19/18 16:56) Thyroid Stimulating Hormone (01/19/18 17:03) Iohexol 350 Inj (Omnipaque 350 Inj) (01/19/18 19:16) Metoprolol Tartrate Inj (Lopressor Inj) (01/19/18 20:15) Metoprolol Tartrate (Lopressor) (01/19/18 20:15) Admit Order (Ed Use Only) (01/19/18 20:38) Labs Laboratory Tests Test 01/19/18 17:00 01/19/18 17:55 Prothrombin Time 14.8 SEC Prothromb Time International Ratio 1.5 RATIO Activated Partial Thromboplast Time 41.8 SEC Blood Urea Nitrogen 22 MG/DL Creatinine 1.41 MG/DL Random Glucose 102 MG/DL Total Protein 6.8 GM/DL Albumin 2.7 GM/DL Calcium Level 9.2 MG/DL Magnesium Level 1.6 MG/DL Alkaline Phosphatase 129 U/L Aspartate Amino Transf (AST/SGOT) 41 U/L Alanine Aminotransferase (ALT/SGPT) 19 U/L Total Bilirubin 1.8 MG/DL Sodium Level 124 MEQ/L Potassium Level 4.4 MEQ/L Chloride Level 90 MEQ/L Carbon Dioxide Level 24.4 MEQ/L Anion Gap 10 MEQ/L Estimat Glomerular Filtration Rate 50 ML/MIN Total Creatine Kinase 26 U/L Troponin I 0.05 NG/ML B-Type Natriuretic Peptide 191 PG/ML Thyroid Stimulating Hormone 3rd Gen 6.590 uIU/ML White Blood Count 7.8 TH/MM3 Red Blood Count 3.51 MIL/MM3 Hemoglobin 10.8 GM/DL Hematocrit 32.7 % Mean Corpuscular Volume 93.0 FL Mean Corpuscular Hemoglobin 30.6 PG Mean Corpuscular Hemoglobin Concent 32.9 % Red Cell Distribution Width 15.9 % Platelet Count 99 TH/MM3 Mean Platelet Volume 8.4 FL Neutrophils (%) (Auto) 84.6 % Lymphocytes (%) (Auto) 7.7 % Monocytes (%) (Auto) 7.5 % Eosinophils (%) (Auto) 0.0 % Basophils (%) (Auto) 0.2 % Neutrophils # (Auto) 6.6 TH/MM3 Lymphocytes # (Auto) 0.6 TH/MM3 Monocytes # (Auto) 0.6 TH/MM3 Eosinophils # (Auto) 0.0 TH/MM3 Basophils # (Auto) 0.0 TH/MM3 CBC Comment AUTO DIFF Differential Comment AUTO DIFF CONFIRMED Platelet Estimate LOW Platelet Morphology Comment NORMAL MDM Supervised Visit with RAUL: Yes Narrative Course Dr Fung made aware of significant aneurysm findings and he will see in AM pt admitted to hospitalist and close CT surgery consult in AM.. pt stale and given beta-yanick ordered by INTERMEDIATE FRAME TENDER to decrease Pressure on Aneurysms. Pt stable at this time Diagnosis Primary Impression: Aortic aneurysm Qualified Codes: I71.2 - Thoracic aortic aneurysm, without rupture Admitting Information Admitting Physician Requests: Admit Rocky Guerrero MD Jan 19, 2018 20:07
[2018-01-19] MEDS ORDERED: METOPROLOL TARTRATE 5 MG/5 ML VIAL IV PUSH ONE (20:15)
[2018-01-19] MEDS ORDERED: METOPROLOL TARTRATE 25 MG TAB PO ONE ×2 (20:15→21:00)
[2018-01-19 21:00] VITALS: BP 105/61; PULSE 104; RESP 16; O2SAT 92
[2018-01-19] MEDS: DOCUSATE SODIUM 50 MG/SENNA 8.6 MG TAB PO SCH ×2 (21:00→22:12)
[2018-01-19] MEDS ORDERED: LACTULOSE SYRUP 20 GM/30 ML CUP PO PRN (21:00)
[2018-01-19] MEDS ORDERED: BISACODYL 10 MG SUPP RECTAL PRN (21:00)
[2018-01-19] MEDS ORDERED: NALOXONE HCL 0.4 MG/ML AMP IV PUSH PRN (21:00)
[2018-01-19] MEDS ORDERED: SODIUM CHLORIDE 0.9% FLUSH 10 ML FLUSH IV FLUSH PRN (21:00)
[2018-01-19] MEDS ORDERED: SENNOSIDES 8.6 MG TAB PO PRN (21:00)
[2018-01-19] MEDS: SODIUM CHLORIDE 0.9% FLUSH 10 ML FLUSH IV FLUSH SCH (21:53)
[2018-01-19 21:58] LABS: BACTERIA, URINE OCC /hpf; BILIRUBIN, URINE NEG (NEG); BLOOD, URINE NEG (NEG); GLUCOSE,URINE NEG (NEG); KETONE, URINE NEG (NEG); MUCUS URINE FEW /lpf (OCC); NITRITE,URINE NEG (NEG); SQUAMOUS EPITHELIAL CELL URINE <1 /hpf (0-5); URINE COLOR YELLOW (YELLW/STRAW); URINE LEUKOCYTE ESTERASE TRACE (NEG)
[2018-01-19] MEDS ORDERED: FUROSEMIDE 40 MG/4 ML VIAL IV PUSH ONE (22:15)
--- NOTE | 2018-01-19 22:28 | HHI.HP ---
HPI Service [facility] Primary Care Physician Hudson Gold III, MD Admission Diagnosis hyponatremia, aortic aneurysm, generalized weakness Diagnoses: Travel History International Travel<30 Days: No Contact w/Intl Traveler <30 Da: No Traveled to Known Affected Are: No History of Present Illness 67-year-old male with a past medical history of prostate cancer, gout and aortic valve replacement presents to the emergency department for the evaluation of edema and dizziness. The patient reports that for the past 3 weeks he has had swollen legs. He saw his enterprise systems administrator, Dr. Han, approximately 10 days ago and was started on Spironolactone with which he has been compliant. The patient reports that Dr. Han did an echo which he said was normal. The patient endorses nausea and associated anorexia with a 10 pound weight loss in approximately 1-1/2 weeks. He denies any chest pain or shortness of breath. He has a history of hypertension however his medication was discontinued 3 weeks ago secondary to hypotension. The patient reports dizziness and fatigue. He denies any lateralizing signs/symptoms. No chest pain or shortness of breath. No abdominal pain. Review of Systems Except as stated in HPI: all other systems reviewed are Neg Past Family Social History Past Medical History History of prostate cancer Gout History of hypertension, antihypertensives recently discontinued Past Surgical History Prostatectomy Aortic valve replacement Reported Medications Reported Meds & Active Scripts Active Reported Spironolactone 25 Mg Tab 25 Mg PO DAILY Allergies: Coded Allergies: lisinopril (Verified Adverse Reaction, Severe, anaphylaxis, 01/19/18) amlodipine (Verified Adverse Reaction, Intermediate, Bilateral Lower Extremity Pitting Edema, 01/19/18) Family History Negative for CAD/DM Social History Occasional alcohol. Denies tobacco and illicit drugs. Physical Exam Vital Signs Vital Signs Date Time Temp Pulse Resp B/P (MAP) Pulse Ox O2 Delivery O2 Flow Rate FiO2 01/19/18 21:04 98 Nasal Cannula 3.00 01/19/18 21:00 104 16 105/61 (76) 92 Room Air 01/19/18 17:09 105 19 131/67 (88) 103 20 130/73 (92) 108 21 126/64 (84) 01/19/18 17:09 (88) Room Air 01/19/18 16:51 102 21 149/70 (96) 100 Room Air 01/19/18 16:50 102 01/19/18 12:31 99.3 123 18 131/66 (87) 99 Physical Exam GENERAL: male lying in bed SKIN: No rashes, ecchymoses or lesions. Cool and dry. HEAD: Atraumatic. Normocephalic. No temporal or scalp tenderness. EYES: Pupils equal round and reactive. Extraocular motions intact. No scleral icterus. No injection or drainage. ENT: Nose without bleeding, purulent drainage or septal hematoma. Throat without erythema, tonsillar hypertrophy or exudate. Uvula midline. Airway patent. NECK: Trachea midline. No JVD or lymphadenopathy. Supple, nontender, no meningeal signs. CARDIOVASCULAR: Regular rate and rhythm with 3/6 murmur. RESPIRATORY: Clear to auscultation. Breath sounds equal bilaterally. No wheezes , rales, or rhonchi. GASTROINTESTINAL: Abdomen soft, non-tender, nondistended. No hepato-splenomegaly , or palpable masses. No guarding. MUSCULOSKELETAL: 2+ bilateral lower extremity edema to the midshin NEUROLOGICAL: Awake and alert. Cranial nerves II through XII intact. Motor and sensory grossly within normal limits. Normal speech. Laboratory Laboratory Tests Test 01/19/18 17:00 01/19/18 17:55 01/19/18 21:15 Prothrombin Time 14.8 Prothromb Time International Ratio 1.5 Activated Partial Thromboplast Time 41.8 Blood Urea Nitrogen 22 Creatinine 1.41 Random Glucose 102 Total Protein 6.8 Albumin 2.7 Calcium Level 9.2 Magnesium Level 1.6 Alkaline Phosphatase 129 Aspartate Amino Transf (AST/SGOT) 41 Alanine Aminotransferase (ALT/SGPT) 19 Total Bilirubin 1.8 Sodium Level 124 Potassium Level 4.4 Chloride Level 90 Carbon Dioxide Level 24.4 Anion Gap 10 Estimat Glomerular Filtration Rate 50 Total Creatine Kinase 26 Troponin I 0.05 B-Type Natriuretic Peptide 191 Thyroid Stimulating Hormone 3rd Gen 6.590 White Blood Count 7.8 Red Blood Count 3.51 Hemoglobin 10.8 Hematocrit 32.7 Mean Corpuscular Volume 93.0 Mean Corpuscular Hemoglobin 30.6 Mean Corpuscular Hemoglobin Concent 32.9 Red Cell Distribution Width 15.9 Platelet Count 99 Mean Platelet Volume 8.4 Neutrophils (%) (Auto) 84.6 Lymphocytes (%) (Auto) 7.7 Monocytes (%) (Auto) 7.5 Eosinophils (%) (Auto) 0.0 Basophils (%) (Auto) 0.2 Neutrophils # (Auto) 6.6 Lymphocytes # (Auto) 0.6 Monocytes # (Auto) 0.6 Eosinophils # (Auto) 0.0 Basophils # (Auto) 0.0 CBC Comment AUTO DIFF Differential Comment AUTO DIFF CONFIRMED Platelet Estimate LOW Platelet Morphology Comment NORMAL Urine Color YELLOW Urine Turbidity CLEAR Urine pH 6.0 Urine Specific Sixes 1.012 Urine Protein TRACE Urine Glucose (UA) NEG Urine Ketones NEG Urine Occult Blood NEG Urine Nitrite NEG Urine Bilirubin NEG Urine Urobilinogen LESS THAN 2.0 Urine Leukocyte Esterase TRACE Urine RBC LESS THAN 1 Urine WBC 5 Urine Squamous Epithelial Cells <1 Urine Bacteria OCC Urine Mucus FEW Microscopic Urinalysis Comment CULT NOT INDICATED Result Diagram: 01/19/18 1758 01/19/18 1700 Caprini VTE Risk Assessment Caprini VTE Risk Assessment: Mod/High Risk (score >= 2) Caprini Risk Assessment Model Point Value = 1 Point Value = 2 Point Value = 3 Point Value = 5 Age 41-60 Minor surgery BMI > 25 kg/m2 Swollen legs Varicose veins or History of unexplained or recurrent spontaneous Oral contraceptives or hormone replacement Sepsis (< 1 month) Serious lung disease, including pneumonia (< 1 month) Abnormal pulmonary function Acute myocardial infarction Congestive heart failure (< 1 month) History of inflammatory bowel disease Medical patient at bed rest Age 61-74 Arthroscopic surgery Major open surgery (> 45 min) Laparoscopic surgery (> 45 min) Malignancy Confined to bed (> 72 hours) Immobilizing plaster cast Central venous access Age >= 75 History of VTE Family history of VTE Factor V Leiden Prothrombin [id number] Lupus anticoagulant Anticardiolipin antibodies Elevated serum homocysteine Heparin-induced thrombocytopenia Other congenital or acquired thrombophilia Stroke (< 1 month) Elective arthroplasty Hip, pelvis, or leg fracture Acute spinal cord injury (< 1 month) Prophylaxis Regimen Total Risk Factor Score Risk Level Prophylaxis Regimen 0-1 Low Early ambulation 2 Moderate Order ONE of the following: *Sequential Compression Device (SCD) *Heparin 5000 units SQ BID 3-4 Higher Order ONE of the following medications: *Heparin 5000 units SQ TID *Enoxaparin/Lovenox 40 mg SQ daily (WT < 150 kg, CrCl > 30 mL/min) *Enoxaparin/Lovenox 30 mg SQ daily (WT < 150 kg, CrCl > 10-29 mL/min) *Enoxaparin/Lovenox 30 mg SQ BID (WT < 150 kg, CrCl > 30 mL/min) AND/OR *Sequential Compression Device (SCD) 5 or more Highest Order ONE of the following medications: *Heparin 5000 units SQ TID (Preferred with Epidurals) *Enoxaparin/Lovenox 40 mg SQ daily (WT < 150 kg, CrCl > 30 mL/min) *Enoxaparin/Lovenox 30 mg SQ daily (WT < 150 kg, CrCl > 10-29 mL/min) *Enoxaparin/Lovenox 30 mg SQ BID (WT < 150 kg, CrCl > 30 mL/min) AND *Sequential Compression Device (SCD) Assessment and Plan Assessment and Plan Assessment/plan: 1. Hyponatremia Sodium 124 Normal saline Fluid restriction Repeat BMP in a.m. 2. Lower extremity edema Unclear etiology Per patient report, he had a normal echo approximately 10 days ago IV Lasix 3. Dizziness/fatigue Likely secondary to hyponatremia Plan as above 4. Hypothyroidism TSH 6.590 T3/T4 studies pending FEN Heart healthy diet with fluid restriction NS at 70 cc/hr Electrolytes: monitor and replete prn Heparin Physician Certification 2 Midnight Certification Type: Admission for Inpatient Services Order for Inpatient Services The services are ordered in accordance with Medicare regulations or non- Medicare payer requirements, as applicable. In the case of services not specified as inpatient-only, they are appropriately provided as inpatient services in accordance with the 2-midnight benchmark. Estimated LOS (days): 2 2 days is the estimated time the patient will need to remain in the hospital, assuming treatment plan goals are met and no additional complications. Post-Hospital Plan: Not yet determined Mai Porter MD Jan 19, 2018 22:27
[2018-01-19] MEDS: SODIUM CHLOR 0.9% 1000 ML INJ 1,000 ML IV SCH (23:01)
[2018-01-20] VITALS (8 sets, daily range): BP systolic 105–138; BP diastolic 55–78; PULSE 78–131; RESP 14–18; TEMP 98–98.8; O2SAT 94–99
[2018-01-20] MEDS: ACETAMINOPHEN 325 MG TAB PO PRN (01:42)
[2018-01-20 05:50] LABS: AUTOMATED NEUTROPHIL # 8.3 TH/MM3 (1.8-7.7); BASOPHIL % 0.2 % (0.0-2.0); HEMOGLOBIN 11.6 GM/DL (13.0-17.0); LYMPH % 7.9 % (9.0-44.0); LYMPHOCYTE # 0.8 TH/MM3 (1.0-4.8); MEAN CELL VOLUME 92.6 FL (80.0-100.0); MEAN CORPUSCULAR HEMOGLOBIN 30.7 PG (27.0-34.0); MEAN CORPUSCULAR HGB CONC 33.1 % (32.0-36.0); MEAN PLATELET VOLUME 9.1 FL (7.0-11.0); MONO % 6.3 % (0.0-8.0); MONOCYTE # 0.6 TH/MM3 (0-0.9); NEUT % 85.6 % (16.0-70.0); PLATELET COUNT 109 TH/MM3 (150-450); RED BLOOD COUNT 3.78 MIL/MM3 (4.50-5.90); RED CELL DISTRIBUTION WIDTH 16.2 % (11.6-17.2); WHITE BLOOD COUNT 9.7 TH/MM3 (4.0-11.0)
[2018-01-20 06:07] LABS: FREE T3 0.92 PG/ML (2.18-3.98); FREE T4 1.43 NG/DL (0.76-1.46)
[2018-01-20 06:09] LABS: BICARBONATE 23.4 MEQ/L (21.0-32.0); CALCIUM 8.8 MG/DL (8.5-10.1); CREATININE 1.28 MG/DL (0.60-1.30)
[2018-01-20 07:54] LABS: BANDS 15 % (0-6); LYMPHOCYTES 7 % (9-44); MONOCYTES 4 % (0-8); NEUTROPHIL # MANUAL DIFF 8.6 TH/MM3 (1.8-7.7); POLYS (SEG NEUTROPHILS) 74 % (16-70)
[2018-01-20 07:55] LABS: OVALOCYTES 1+ (NORMAL); TOXIC GRANULATION 1+ (NORMAL)
[2018-01-20 07:56] LABS: TOXIC VACUOLATION PRESENT (NONE SEEN)
[2018-01-20] MEDS: SODIUM CHLORIDE 0.9% FLUSH 10 ML FLUSH IV FLUSH SCH ×2 (09:00→21:00)
[2018-01-20] MEDS: HEPARIN SODIUM - SQ 10,000 UNITS/ML VIAL SQ SCH ×2 (09:58→21:00)
[2018-01-20] MEDS: FUROSEMIDE 40 MG/4 ML VIAL IV PUSH SCH ×2 (09:58→16:57)
[2018-01-20] MEDS: DOCUSATE SODIUM 50 MG/SENNA 8.6 MG TAB PO SCH ×2 (09:59→21:00)
[2018-01-20] MEDS: SODIUM CHLOR 0.9% 1000 ML INJ 1,000 ML IV SCH (12:33)
[2018-01-20] MEDS: ONDANSETRON HCL 4 MG/2 ML VIAL IVP PRN (14:49)
--- NOTE | 2018-01-20 15:03 | MB ---
cc: Noelle Walker Sohit MD DATE: 01/20/2018 HISTORY OF PRESENT ILLNESS: This is a 67-year-old that was known to our service, underwent minimally invasive aortic valve replacement with a #23 [place] tissue valve with a left femoral artery and venous cannulation 02/10/2017. The patient did well postoperatively, was discharged home on 02/13/2017. He apparently has been complaining of shortness of breath and lower extremity edema. Apparently saw Dr. Han, was treated with an additional spironolactone, presented to the emergency department on this admission with dizziness, generalized weakness, and shortness of breath. They did some imaging, lower extremity ultrasound, which showed no evidence of DVT and CT head, which was negative. He had a CT angiography to rule out a pulmonary emboli. They found 2 large saccular aneurysms extending off the aortic root, which is abnormally dilated; some postsurgical changes consistent with valve replacement surgery; a small amount of fluid and soft tissue stranding, which the films will be reviewed by Dr. Andra Fung; also 2-D echo is pending to evaluate for EF and to evaluate further the aortic valve. PAST MEDICAL HISTORY: Aortic valve disease, prostate cancer, gout, hypertension. PAST SURGICAL HISTORY: Include prostatectomy and aortic valve replacement 02/2017. ALLERGIES: INCLUDE LISINOPRIL AND AMLODIPINE. HOME MEDICATIONS: Include spironolactone. FAMILY HISTORY: Negative for CAD. SOCIAL HISTORY: Occasional alcohol. No tobacco or illicit drugs. REVIEW OF SYSTEMS: As above in the HPI. Other 12 systems is unremarkable. PHYSICAL EXAMINATION: VITAL SIGNS: Blood pressure 108/64, heart rate of 86, room air sat 99. GENERAL: The patient is awake, alert, in no acute distress. HEENT: Head is normocephalic, atraumatic. Pupils equal and reactive. Oral mucosa pink, moist. NECK: Supple. No JVD. CARDIOVASCULAR: Heart sounds S1, S2. Soft systolic murmur. CHEST: Lungs diminished at the bases, otherwise clear to auscultation. There is a well-healed scar to the right upper chest wall. ABDOMEN: Soft and nontender. No masses or organomegaly. EXTREMITIES: Reveal +1 edema in the right lower foot and trace edema in the left leg. DIAGNOSTIC STUDIES: EKG shows sinus rhythm with occasional PACs and PVCs. LABORATORY WORK: Shows hemoglobin of 11.6, hematocrit of 35, white cell count of 9.7, platelet count of 109. Sodium 129, potassium 4.1, BUN of 24, creatinine 1.28. BNP of 191. TSH is 6.5 with a T3 of 0.92. INR 1.5. Urinalysis unremarkable. ASSESSMENT AND PLAN: 1. This is a 67-year-old male with history of minimally invasive aortic valve replacement in 02/2017 with a tissue valve; admission with hyponatremia, lightheadedness, and dizziness. The patient on fluid restriction. 2-D echo is pending. 2. Lower extremity edema. Per the patient, there is a reported normal echo; however, we will need to reevaluate his valve for his ejection fraction. 3. Hypothyroidism. This is untreated. 4. The patient does have an abnormal CT chest, which will be evaluated by Dr. Andra Fung. PRATEEK Sullivan MD JRT/HENNA , 01:45 PM , 03:02 PM YEE
--- NOTE | 2018-01-20 16:02 | ECHRPT ---
Indication: CONCLUSIONS Normal left ventricular size and wall thickness. The left ventricular systolic function is normal wi th an estimated ejection fraction in the range of 60-65%. No definite regional wall motion abnormalities. Mild mitral annular calcification is present. An aortic valve prosthesis is reportedly present. It is very poorly visualized. Doppler interrogat ion suggests normal function. Aortic valve mean gradient is 11 mmHg. BP: / HR: 105 Rhythm: Sinus MEASUREMENTS (Male / Female) Normal Values Technical Quality:Very technically difficult study 2D ECHO LV Diastolic Diameter PLAX 4.2 cm 4.2 - 5.9 / 3.9 - 5.3 cm LV Systolic Diameter PLAX 3.4 cm IVS Diastolic Thickness 0.9 cm 0.6 - 1.0 / 0.6 - 0.9 cm LVPW Diastolic Thickness 0.8 cm 0.6 - 1.0 / 0.6 - 0.9 cm LV Relative Wall Thickness 0.4 RV Internal Dim ED PLAX 2.8 cm LVOT Diameter 1.7 cm LA Systolic Diameter LX 3.6 cm 3.0 - 4.0 / 2.7 - 3.8 cm M-MODE Aortic Root Diameter MM 1.8 cm LA Systolic Diameter MM 4.0 cm LA Ao Ratio MM 2.2 DOPPLER AV Peak Velocity 214.5 cm/s AV Peak Gradient 18.4 mmHg AV Mean Gradient 11.0 mmHg AV Velocity Time Integral 30.3 cm LVOT Peak Velocity 160.0 cm/s LVOT Peak Gradient 10.2 mmHg LVOT Velocity Time Integral 20.7 cm LVOT Cardiac Index 2714.9 cm/minm AV Area Cont Eq vti 1.5 cm AV Area Cont Eq pk 1.6 cm MV Area PHT 3.1 cm Mitral E Point Velocity 66.1 cm/s Mitral A Point Velocity 137.0 cm/s Mitral E to A Ratio 0.5 LV E' Lateral Velocity 12.0 cm/s Mitral E to LV E' Lateral Ratio 5.5 LV E' Septal Velocity 7.1 cm/s Mitral E to LV E' Septal Ratio 9.3 FINDINGS LEFT VENTRICLE Normal left ventricular size and wall thickness. The left ventricular systolic function is normal wi th an estimated ejection fraction in the range of 60-65%. No definite regional wall motion abnormalities. RIGHT VENTRICLE Normal right ventricular size and systolic function. LEFT ATRIUM The left atrial size is normal. RIGHT ATRIUM The right atrial size is normal. ATRIAL SEPTUM Normal atrial septal thickness without atrial level shunting by limited color doppler interrogation. AORTA The aortic root and proximal ascending aorta are normal in size on limited imaging. MITRAL VALVE Mild mitral annular calcification is present. AORTIC VALVE The aortic valve prosthesis is reportedly present. It is very poorly visualized. Doppler interroga tion suggests normal function. Aortic valve mean gradient is 11 mmHg. TRICUSPID VALVE Structurally normal tricuspid valve. No tricuspid valve stenosis or regurgitation. PULMONARY VALVE No pulmonary valve regurgitation or stenosis. VESSELS The inferior vena cava is normal in size. PERICARDIUM No pericardial effusion. Moris Bennett MD (Electronically Signed) Final Date:20 January 2018 16:01
--- NOTE | 2018-01-20 17:16 | HHI.PR ---
Subjective Remarks patient awake and alert complains of LE edema for past 3 weeks seen by Cardioogy and started on meds today leg swelling - per patient much improved FF by Dr. rodriguez as OP Objective Vitals Vital Signs Date Time Temp Pulse Resp B/P (MAP) Pulse Ox O2 Delivery O2 Flow Rate FiO2 01/20/18 15:21 98.0 80 18 122/74 (90) 97 01/20/18 11:43 01/20/18 10:09 86 14 108/64 (79) 99 Room Air 01/20/18 07:00 98.8 78 18 121/63 (82) 96 Room Air 01/20/18 05:47 85 16 110/58 (75) 99 Room Air 01/20/18 02:41 98.0 98 16 105/55 (72) 94 Room Air 01/20/18 01:32 102 16 121/62 (81) 95 Nasal Cannula 2.00 01/19/18 21:04 98 Nasal Cannula 3.00 01/19/18 21:00 104 16 105/61 (76) 92 Room Air I/O 01/19/18 01/19/18 01/19/18 01/20/18 01/20/18 01/20/18 07:00 15:00 23:00 07:00 15:00 23:00 Intake Total 800 ml Balance 800 ml Intake IV Total 800 ml Result Diagram: 01/20/18 0456 01/20/18 0456 Imaging Last Impressions Head CT 01/19/18 1656 Signed Impressions: Service Date/Time: January 19:08 - CONCLUSION: Negative noncontrast head CT. John Rubio MD Chest X-Ray 01/19/18 1234 Signed Impressions: Service Date/Time: January 13:07 - CONCLUSION: Mass-like lesion measuring 5.1 cm in the expected region of the anterior mediastinum which is indeterminate. CT of the chest with contrast would be helpful for further evaluation of this finding. Eddie Peralta MD Lower Extremity Ultrasound 01/19/18 0000 Signed Impressions: Service Date/Time: January 17:26 - CONCLUSION: Negative exam with no evidence of deep venous thrombosis. John Rubio MD CT Angiography 01/19/18 0000 Signed Impressions: Service Date/Time: January 19:12 - CONCLUSION: 1. 2 large saccular aneurysms extending off the aortic root which is abnormally dilated. There are postsurgical changes consistent with probable valve replacement surgery. There is a small amount of fluid and soft tissue stranding which is nonspecific and the aortic wall is not significantly thickened. Infection should be considered. 2. No evidence of pulmonary embolism. 3. Splenomegaly and ascites in the upper abdomen. These findings were called to Dr. Guerrero in the emergency room at 1957 hrs. John Rubio MD Objective Remarks awake and alert, oriented x 3 anicteric no nuchal rigidity lungs- no rales regular rhythm abdomen- soft-mild fluid wave no scrotal edema, + gomez in place extremities- trace pretibial edema- per patient much improved Urinary Catheter: Yes Assessment to: Continue Gomez insert reason: Measure Accurate Output Date of Insertion: Jan 19, 2018 A/P Assessment and Plan 67 years old male Dizziness/fatigue Gait instability - Head CT is negative - will get a cognitive evaluation - reevaluate in am- consider- MRI - PT eval and treat Hyponatremia-NA improved- patient awake and alert- but family feels he is not at baseline cognitive oconnell - ff BMP S/P history of recent AVReplacement now on CT with saccular aneurysm Bilateral LE edema ? right sided HR or underlying liver disease - Cardiothoracic surgery consulted - echo good EF - get US- check fro ascites, check Liver - Cardiology consult- known to Evan history of gross hematuria/prostate cancer - gomez in place - no gross hematuria - complains of incontinence - requested to keep gomez - as OP was ff by Dr. Carballo/Mandi and states had repeated cautery done repeatedly - monitor- DC gomez in am Bandemia and toxic granulation on CBC -no fever UA negative, CXR negative Hypothyroidism TSH 6.590 [id number] PT eval CM consult for DC planning Dotty Tobar MD Jan 20, 2018 17:16
[2018-01-20] MEDS: FUROSEMIDE 20 MG/2 ML VIAL IV PUSH SCH (18:00)
--- NOTE | 2018-01-20 19:33 | RADRPT ---
EXAM DATE/TIME: 01/20/2018 19:10 [facility] COMPARISON: No previous studies available for comparison. INDICATIONS : Ascites. MEDICAL HISTORY : Hypertension. Hernia. Carcinoma, prostate. Urinary tract infection. SURGICAL HISTORY : Prostatectomy. Heart catheterization. Hernia repair. Cervical discectomy. ENCOUNTER: Initial ACUITY: 1 day PAIN SCORE: 3/10 LOCATION: Bilateral Abdomen. AREA EVALUATED: Abdomen. FINDINGS: Imaging of the abdomen and pelvis was performed to evaluate for ascites for possible paracentesis. CONCLUSION: 1. Insufficient fluid for paracentesis. Baltazar Luke MD on January 20, 2018 at 19:30 Board Certified Radiologist. This report was verified electronically.
--- NOTE | 2018-01-20 19:45 | RADRPT ---
EXAM DATE/TIME: 01/20/2018 18:57 [facility] COMPARISON: No previous studies available for comparison. INDICATIONS : Cirrhosis. MEDICAL HISTORY : Hypertension. Hernia. Carcinoma, prostate. Urinary tract infection. SURGICAL HISTORY : Prostatectomy. Heart catheterization. Hernia repair. Cervical discectomy. ENCOUNTER: Initial ACUITY: 1 day PAIN SCORE: 3/10 LOCATION: Bilateral upper quadrant MEASUREMENTS: LIVER: 15.4 cm length COMMON DUCT: 4 mm RIGHT KIDNEY: 9.5 x 4.7 x 4.5 cm SPLEEN: 12.7 cm length FINDINGS: There is a small amount of ascites. No focal hepatic abnormality. Portal venous flow is normal direct ion. Common bile duct measures 4 mm. No gallstones. Right kidney unremarkable. Spleen unremarkable. P ancreas not well-visualized. CONCLUSION: 1. Mild ascites. No gallstones or biliary ductal dilatation. Echogenic liver characteristic of fatty infiltration. Baltazar Luke MD on January 20, 2018 at 19:42 Board Certified Radiologist. This report was verified electronically.
--- NOTE | 2018-01-20 19:49 | EKG ---
Date Performed: 01/19/2018 Time Performed: 16:58:10 PTAGE: 67 years EKG: Sinus rhythm WITH OCCASIONAL VENTRICULAR PREMATURE COMPLEXES POSSIBLE LEFT ATRIAL ENLARGEMENT BORDERLINE ECG Sinc e the PREVIOUS TRACING , no significant change noted PREVIOUS TRACIN02/11/2017 05.20 DOCTOR: Ruslan Aburto Interpretating Date/Time 01/20/2018 20:04:51
[2018-01-21] VITALS (25 sets, daily range): BP systolic 94–141; BP diastolic 54–76; PULSE 80–138; RESP 18; TEMP 97.4–97.7; O2SAT 96–99
[2018-01-21] MEDS ORDERED: LORazepam 2 MG/ML VIAL IV PUSH ONE (03:15)
[2018-01-21 05:08] LABS: AUTOMATED NEUTROPHIL # 7.6 TH/MM3 (1.8-7.7); BASOPHIL % 0.1 % (0.0-2.0); HEMATOCRIT 34.8 % (39.0-51.0); HEMOGLOBIN 11.7 GM/DL (13.0-17.0); LYMPH % 6.2 % (9.0-44.0); LYMPHOCYTE # 0.5 TH/MM3 (1.0-4.8); MEAN CELL VOLUME 90.8 FL (80.0-100.0); MEAN CORPUSCULAR HEMOGLOBIN 30.7 PG (27.0-34.0); MEAN CORPUSCULAR HGB CONC 33.7 % (32.0-36.0); MEAN PLATELET VOLUME 9.1 FL (7.0-11.0); MONO % 7.2 % (0.0-8.0); MONOCYTE # 0.6 TH/MM3 (0-0.9); NEUT % 86.5 % (16.0-70.0); PLATELET COUNT 103 TH/MM3 (150-450); RED BLOOD COUNT 3.83 MIL/MM3 (4.50-5.90); WHITE BLOOD COUNT 8.8 TH/MM3 (4.0-11.0)
[2018-01-21] MEDS: SODIUM CHLORIDE 0.9% FLUSH 10 ML FLUSH IV FLUSH SCH ×2 (08:32→20:32)
[2018-01-21] MEDS: DOCUSATE SODIUM 50 MG/SENNA 8.6 MG TAB PO SCH ×2 (08:33→20:32)
[2018-01-21] MEDS: HEPARIN SODIUM - SQ 10,000 UNITS/ML VIAL SQ SCH ×2 (08:34→20:32)
[2018-01-21] MEDS: FUROSEMIDE 20 MG/2 ML VIAL IV PUSH SCH (08:34)
--- NOTE | 2018-01-21 14:03 | HHI.PR ---
Subjective Remarks up on chair feeling better, leg swelling improved patient denies any anxiety telemetry- sinus- HR 100-110 patient is ff by Dr han as OP and was started on aldactone for leg swelling came in for dizziness- with low Sodium Objective Vitals Vital Signs Date Time Temp Pulse Resp B/P (MAP) Pulse Ox O2 Delivery O2 Flow Rate FiO2 01/21/18 13:01 108 01/21/18 12:00 106 01/21/18 11:30 97.4 109 18 98/60 (73) 96 01/21/18 11:00 109 01/21/18 10:00 114 01/21/18 09:00 108 01/21/18 08:30 97.6 109 18 94/54 (67) 96 01/21/18 08:00 110 01/21/18 07:01 110 01/21/18 04:00 124 01/21/18 00:05 138 18 141/76 (97) 97 01/21/18 00:00 134 01/20/18 20:00 131 16 121/72 (88) 96 126/73 (90) 01/20/18 20:00 129 01/20/18 17:27 119/67 (84) 01/20/18 17:27 138/78 (98) 01/20/18 15:21 98.0 80 18 122/74 (90) 97 I/O 01/20/18 01/20/18 01/20/18 01/21/18 01/21/18 01/21/18 07:00 15:00 23:00 07:00 15:00 23:00 Intake Total 800 ml Output Total 1000 ml Balance 800 ml -1000 ml IV Total 800 ml Output Urine Total 1000 ml Result Diagram: 01/21/18 0435 01/20/18 0456 Imaging Last Impressions Liver Ultrasound 01/20/18 0000 Signed Impressions: Service Date/Time: Saturday, January 20, 2018 18:57 - CONCLUSION: 1. Mild ascites. No gallstones or biliary ductal dilatation. Echogenic liver characteristic of fatty infiltration. Baltazar Luke MD Abdomen Ultrasound 01/20/18 0000 Signed Impressions: Service Date/Time: Saturday, January 20, 2018 19:10 - CONCLUSION: 1. Insufficient fluid for paracentesis. Baltazar Luke MD Head CT 01/19/18 0516 Signed Impressions: Service Date/Time: January 19:08 - CONCLUSION: Negative noncontrast head CT. John Rubio MD Chest X-Ray 01/19/18 1234 Signed Impressions: Service Date/Time: January 13:07 - CONCLUSION: Mass-like lesion measuring 5.1 cm in the expected region of the anterior mediastinum which is indeterminate. CT of the chest with contrast would be helpful for further evaluation of this finding. Eddei Peralta MD Lower Extremity Ultrasound 01/19/18 0000 Signed Impressions: Service Date/Time: January 17:26 - CONCLUSION: Negative exam with no evidence of deep venous thrombosis. John Rubio MD CT Angiography 01/19/18 0000 Signed Impressions: Service Date/Time: January 19:12 - CONCLUSION: 1. 2 large saccular aneurysms extending off the aortic root which is abnormally dilated. There are postsurgical changes consistent with probable valve replacement surgery. There is a small amount of fluid and soft tissue stranding which is nonspecific and the aortic wall is not significantly thickened. Infection should be considered. 2. No evidence of pulmonary embolism. 3. Splenomegaly and ascites in the upper abdomen. These findings were called to Dr. Guerrero in the emergency room at 1957 hrs. John Rubio MD Objective Remarks awake and alert, oriented x 3 anicteric no nuchal rigidity lungs- no rales regular rhythm, tachycardic abdomen- soft, good bowel sounds no scrotal edema, + gomez in place extremities- trace pretibial edema- per patient much improved Urinary Catheter: Yes Assessment to: Continue Date of Insertion: Jan 19, 2018 A/P Assessment and Plan 67 years old male Dizziness/fatigue Family feels he is improved but still not baseline - is awake and alert, interactive - Head CT is negative - speech therapy ff- cognitive evaluation - PT eval and treat S/P history of recent AV Replacement now on CT with saccular aneurysm Bilateral LE edema - exam improved ? right sided HF Tachycardic - SR- 110s - Cardiothoracic surgery consulted - echo good EF - US- minimal ascites - Cardiology consult- known to Dr Han - BARBER Lasix - start low dose Lopressor Bandemia and toxic granulation on CBC -no fever UA negative, CXR negative, no leukocytosis - CXR, abdomen- unremarkable - monitor for fever Hyponatremia- -ff BMP history of gross hematuria/prostate cancer - gomez in place - no gross hematuria - complains of incontinence - requested to keep gomez - as OP was ff by Dr. Carballo/Mandi and states had repeated cautery done repeatedly - monitor- DC gomez- patient refused to have it removed at this time Hypothyroidism TSH 6.590 T3 slightly low recheck PT eval daily- CM consult for DC planning Dotty Tobar MD Jan 21, 2018 14:03
[2018-01-21] MEDS: METOPROLOL TARTRATE 25 MG TAB PO SCH ×2 (15:01→23:28)
[2018-01-21 16:28] LABS: CALCIUM 8.6 MG/DL (8.5-10.1); CREATININE 1.56 MG/DL (0.60-1.30)
[2018-01-22] VITALS (29 sets, daily range): BP systolic 91–107; BP diastolic 52–67; PULSE 80–114; RESP 18; TEMP 97.5–98.3; O2SAT 96–99
[2018-01-22] MEDS: METOPROLOL TARTRATE 25 MG TAB PO SCH ×3 (05:53→21:01)
[2018-01-22] MEDS: SODIUM CHLORIDE 0.9% FLUSH 10 ML FLUSH IV FLUSH SCH ×2 (08:15→21:09)
[2018-01-22] MEDS: HEPARIN SODIUM - SQ 10,000 UNITS/ML VIAL SQ SCH ×2 (08:15→21:08)
[2018-01-22] MEDS: DOCUSATE SODIUM 50 MG/SENNA 8.6 MG TAB PO SCH ×2 (08:15→21:00)
--- NOTE | 2018-01-22 12:53 | MB ---
cc: Kenna Marie MD [place]lingtonFairview HeightsAndra Harris III, MD,Noelle Cheatham MD,Saw ALDRIDGE DATE: 01/22/2018 COVERING FOR: Saw Han MD REASON FOR CONSULTATION: Shortness of breath and lower extremity edema. HISTORY OF PRESENT ILLNESS: Mr. Alamo is a pleasant 67-year-old gentleman with no history of smoking, hyperlipidemia, diabetes or coronary artery disease. He has had history of hypertension and has had family history of coronary artery disease at premature age (his father). He underwent aortic valve replacement, 02/2017. He had abdominal hernia repair about a month and a half ago. He has been losing weight to the point he had to stop his lisinopril because his blood pressure was dropping. He has not been eating well and he started having mild lower extremity edema and was started on spironolactone. He comes in with feeling weak and short of breath with nausea. Denies chest pain. Denies palpitations or syncope. Denies orthopnea or PND. He has had some mild ankle edema as mentioned. Admits to fatigue, loss of appetite and chills at home as well. REVIEW OF SYSTEMS: A 12-point system review is unremarkable except what is mentioned of the history of present illness. PAST MEDICAL AND SURGICAL HISTORY: Includes as mentioned above. 1. History of prostate cancer, status post prostatectomy 7 years ago and also "laser therapy." He has had incontinence and hematuria as a complication of that and straining in the past. 2. History of gout. 3. History of hypertension. MEDICATIONS AT HOME: Spironolactone 25 mg daily, which was started recently by Dr. Han. ALLERGIES: THERE ARE QUESTIONABLE ALLERGIES HERE. ACCORDING TO THE REPORT, TO LISINOPRIL AND AMLODIPINE. I AM NOT SURE HOW ACCURATE THAT IS. PHYSICAL EXAMINATION: GENERAL: A 67-year-old gentleman lying in bed, in no apparent distress, alert, oriented x 3, answers questions appropriately. Looking somewhat ill, however. VITAL SIGNS: Blood pressure is 100/60 mmHg, pulse of 88 beats per minute and regular, respiration at 18 per minute, afebrile. HEENT: Shows head is normocephalic. Pupils equal, reactive. Throat is within normal limits. NECK: Supple. No carotid bruit, no thyromegaly. No jugular venous distention noted. LUNGS: Clear to auscultation and percussion. CARDIOVASCULAR: S1, S2 are normal with a I-II/ systolic murmur, more at the left sternal border and right second intercostal space. ABDOMEN: Lax, minimal tenderness at the naval area from the relatively recent surgery. Normoactive bowel sounds. No organomegaly, no mass felt. EXTREMITIES: No clubbing, cyanosis or edema. Pulses 2+ bilaterally. No bruit noted. NEUROLOGIC: Grossly intact with no focal deficits. RECTAL: Deferred. DIAGNOSTIC DATA: He had a lower extremity venous Doppler ultrasound done with no evidence of DVT. He had a CT angiogram of the chest that showed large saccular aneurysms extending off the aortic root, which is abnormally dilated, with a small amount of fluid and soft tissue stranding suggesting an infection. No PE. Splenomegaly and ascites in the upper abdomen. The chest x-ray suggested a mass-like lesion in the mediastinum and I guess this is probably the saccular aneurysms noted in the CT, and they were suggesting to do a dedicated chest CT with contrast. He had a head CT that was unremarkable. Liver ultrasound showed mild ascites and some degree of fatty liver. LABORATORY DATA:: He came with a sodium of 124. It is up to 127, 129 and then 127. Potassium 3.7, BUN of 28, creatinine 1.56. TSH shows mild elevation at 6.59 with a free T4 level 0.92. INR of 1.5, PTT 41.8. White count of 8.8 and hemoglobin of 11.7, a platelet count of 103. ASSESSMENT AND RECOMMENDATIONS: Status post aortic valve replacement and now with saccular aneurysmal dilatation and signs on CT suggestive of possible infection. This patient looks somewhat ill with a low blood pressure with recent weight loss, fatigue and chills, for which subacute bacterial endocarditis should be considered. Blood cultures and sed rate will be ordered. Consider doing a transesophageal echocardiogram. Dr. Fung, the cardiovascular surgeon, has been consulted. In the meantime, regarding his history of hypertension, he had lost weight and does not need any antihypertensive medications at the present time. His lower extremity edema resolved. His low sodium may be secondary spironolactone and/or syndrome of inappropriate antidiuretic hormone secretion. This can be watched or consider slow hydration with normal saline, especially with the low blood pressure, but I will leave this up to the medical team. It is worth noting that he had an echocardiogram that was basically "unremarkable," but the aortic valve was not very well seen. Thank you for the consultation. Dr. Han will resume his cardiac care from tomorrow. MD NIC Cu[place]ra/[place] , 12:16 PM , 12:52 PM
--- NOTE | 2018-01-22 13:27 | HHI.PR ---
Subjective Remarks no complains feels stronger interactive no pain complains no nausea or vomiting up and ambulated this am- out of bed Objective Vitals Vital Signs Date Time Temp Pulse Resp B/P (MAP) Pulse Ox O2 Delivery O2 Flow Rate FiO2 01/22/18 11:30 97.5 85 18 102/56 (71) 96 01/22/18 08:15 97.7 87 18 100/60 (73) 97 01/22/18 07:01 88 01/22/18 06:12 92 01/22/18 05:00 94 01/22/18 04:17 93 01/22/18 04:00 98.0 94 18 105/56 (72) 99 01/22/18 03:00 93 01/22/18 02:00 87 01/22/18 01:00 86 01/22/18 00:00 94 01/21/18 23:24 101 18 102/57 (72) 99 01/21/18 23:00 98 01/21/18 22:00 96 01/21/18 21:00 82 01/21/18 20:03 97.7 100 18 100/57 (71) 99 01/21/18 20:00 100 01/21/18 19:00 80 01/21/18 18:01 86 01/21/18 17:00 92 01/21/18 16:01 98 01/21/18 15:45 97.7 108 18 116/62 (80) 99 01/21/18 15:00 108 01/21/18 14:00 110 I/O 01/21/18 01/21/18 01/21/18 01/22/18 01/22/18 01/22/18 07:00 15:00 23:00 07:00 15:00 23:00 Intake Total 960 ml 420 ml Output Total 1000 ml 1000 ml 450 ml Balance -1000 ml -40 ml -30 ml Intake Oral 960 ml 420 ml Output Urine Total 1000 ml 1000 ml 450 ml # Bowel Movements 0 Result Diagram: 01/21/18 0435 01/21/18 1534 Imaging Last Impressions Liver Ultrasound 01/20/18 0000 Signed Impressions: Service Date/Time: Saturday, January 20, 2018 18:57 - CONCLUSION: 1. Mild ascites. No gallstones or biliary ductal dilatation. Echogenic liver characteristic of fatty infiltration. Baltazar Luke MD Abdomen Ultrasound 4/13/18 0000 Signed Impressions: Service Date/Time: Saturday, January 20, 2018 19:10 - CONCLUSION: 1. Insufficient fluid for paracentesis. Baltazar Luke MD Head CT 01/19/18 1656 Signed Impressions: Service Date/Time: January 19:08 - CONCLUSION: Negative noncontrast head CT. John Rubio MD Chest X-Ray 01/19/18 1234 Signed Impressions: Service Date/Time: January 13:07 - CONCLUSION: Mass-like lesion measuring 5.1 cm in the expected region of the anterior mediastinum which is indeterminate. CT of the chest with contrast would be helpful for further evaluation of this finding. Eddie Peralta MD Lower Extremity Ultrasound 01/19/18 0000 Signed Impressions: Service Date/Time: January 17:26 - CONCLUSION: Negative exam with no evidence of deep venous thrombosis. John Rubio MD CT Angiography 01/19/18 0000 Signed Impressions: Service Date/Time: January 19:12 - CONCLUSION: 1. 2 large saccular aneurysms extending off the aortic root which is abnormally dilated. There are postsurgical changes consistent with probable valve replacement surgery. There is a small amount of fluid and soft tissue stranding which is nonspecific and the aortic wall is not significantly thickened. Infection should be considered. 2. No evidence of pulmonary embolism. 3. Splenomegaly and ascites in the upper abdomen. These findings were called to Dr. Guerrero in the emergency room at 1957 hrs. John Rubio MD Objective Remarks awake and alert, oriented x 3 anicteric no nuchal rigidity lungs- no rales regular rhythm abdomen- soft, good bowel sounds no scrotal edema, condom catheter in place extremities- pretibial edema- trace (improved) Urinary Catheter: No Assessment to: Remove Date of Insertion: Jan 19, 2018 Date of Removal: Jan 21, 2018 A/P Assessment and Plan 67 years old male Fatigue/generalized weakness Family feels he is improved but still not baseline - is awake and alert, interactive , oriented x 3 - Head CT is negative - PT eval and treat S/P history of recent AV Replacement now on CT with saccular aneurysm R/O SBE Bilateral LE edema - exam improved History of hypertension Tachycardic- HR improved on low dose BB - Cardiothoracic surgery ff - echo good EF, but aortic root not well visualized - US- minimal ascites - Cardiology ff Dr Han - d/w Dr. Marie- with CT finding of saccular aneurysm- r/o SBE - blood cultures ordered, ESR, CRP Bandemia and toxic granulation on CBC r/o SBE -no fever UA negative, CXR negative, no leukocytosis but with predominant neutrophilia and bandemia - CXR, abdomen- unremarkable - monitor for fever/signs of infection - Blood cultures ordered x 2 - ff CBC, ESR, CRP ordered for tomorrow - no antibiotics started for now Hyponatremia- asymptomatic -ff BMP history of gross hematuria/prostate cancer - condom cath- grossly clear urine - as OP was ff by Dr. Carballo/Mandi and states had repeated cautery done repeatedly in the past Hypothyroidism TSH 6.590 T3 pending PT eval daily- encourage oput of bed to chair for meals Heparin SQ CM consult for DC planning Dotty Tobar MD Jan 22, 2018 13:27
[2018-01-22] MEDS: ONDANSETRON HCL 4 MG/2 ML VIAL IVP PRN (22:15)
[2018-01-23] VITALS (28 sets, daily range): BP systolic 95–120; BP diastolic 56–77; PULSE 70–98; RESP 16–18; TEMP 97.4–98.3; O2SAT 95–97
[2018-01-23] MEDS: METOPROLOL TARTRATE 25 MG TAB PO SCH ×3 (06:13→20:25)
[2018-01-23 06:30] LABS: HEMATOCRIT 37.3 % (39.0-51.0); HEMOGLOBIN 12.6 GM/DL (13.0-17.0); MEAN CELL VOLUME 91.2 FL (80.0-100.0); MEAN CORPUSCULAR HEMOGLOBIN 30.8 PG (27.0-34.0); MEAN CORPUSCULAR HGB CONC 33.8 % (32.0-36.0); MEAN PLATELET VOLUME 9.1 FL (7.0-11.0); PLATELET COUNT 100 TH/MM3 (150-450); RED BLOOD COUNT 4.09 MIL/MM3 (4.50-5.90); RED CELL DISTRIBUTION WIDTH 16.2 % (11.6-17.2); WHITE BLOOD COUNT 7.4 TH/MM3 (4.0-11.0)
[2018-01-23 06:45] LABS: BICARBONATE 28.6 MEQ/L (21.0-32.0); CALCIUM 9.2 MG/DL (8.5-10.1); CREATININE 1.35 MG/DL (0.60-1.30); MAGNESIUM 1.9 MG/DL (1.5-2.5); PHOSPHORUS 3.2 MG/DL (2.5-4.9)
[2018-01-23 07:49] LABS: WESTERGREN SEDIMENTATION RATE 8 mm/hr (0-20)
[2018-01-23] MEDS: SODIUM CHLORIDE 0.9% FLUSH 10 ML FLUSH IV FLUSH SCH ×2 (10:04→20:26)
[2018-01-23] MEDS: DOCUSATE SODIUM 50 MG/SENNA 8.6 MG TAB PO SCH ×2 (10:04→20:25)
[2018-01-23] MEDS: HEPARIN SODIUM - SQ 10,000 UNITS/ML VIAL SQ SCH ×2 (10:04→20:26)
[2018-01-23] MEDS: MAGNESIUM HYDROXIDE SUSP 30 ML CUP PO PRN (14:29)
--- NOTE | 2018-01-23 18:03 | PD.CARD.PN ---
Subjective Subjective Remarks Weak, tired, SOB, no CP Objective Medications Current Medications Medications (Trade) Dose Ordered Sig/Dre Route Start Time Stop Time Status Last Admin (NS Flush) 2 ml UNSCH PRN IV FLUSH 01/19/18 21:00 01/22/18 22:14 (NS Flush) 2 ml BID IV FLUSH 01/19/18 21:00 01/23/18 10:04 (Tylenol) 650 mg Q4H PRN PO 01/19/18 21:00 01/20/18 01:42 (Zofran Inj) 4 mg Q6H PRN IVP 01/19/18 21:00 01/22/18 22:15 (Narcan Inj) 0.4 mg UNSCH PRN IV PUSH 01/19/18 21:00 (Janie-Colace) 1 tab BID PO 01/19/18 21:00 01/23/18 10:04 (Milk Of Magnesia Liq) 30 ml Q12H PRN PO 01/19/18 21:00 01/23/18 14:29 (Senokot) 17.2 mg Q12H PRN PO 01/19/18 21:00 (Dulcolax Supp) 10 mg DAILY PRN RECTAL 01/19/18 21:00 (Lactulose Liq) 30 ml DAILY PRN PO 01/19/18 21:00 (Heparin Inj) 5,000 units Q12HR SQ 01/20/18 09:00 01/23/18 10:04 (Lopressor) 6.25 mg Q8HR PO 01/21/18 14:30 01/23/18 14:29 Vital Signs / I&O Vital Signs Date Time Temp Pulse Resp B/P (MAP) Pulse Ox O2 Delivery O2 Flow Rate FiO2 01/23/18 15:00 97.6 88 18 98/60 (73) 96 01/23/18 14:00 98 01/23/18 13:00 96 01/23/18 12:00 88 01/23/18 11:00 97.4 90 16 101/57 (72) 97 01/23/18 10:00 88 01/23/18 09:00 84 01/23/18 08:00 78 01/23/18 07:30 97.5 78 16 102/56 (71) 96 01/23/18 07:00 87 01/23/18 06:03 87 01/23/18 05:16 88 01/23/18 04:27 85 01/23/18 03:19 97.5 85 18 96/58 (71) 97 01/23/18 03:00 83 01/23/18 02:27 85 01/23/18 01:12 85 01/23/18 00:27 98.3 84 18 95/58 (70) 97 01/23/18 00:00 84 01/22/18 23:00 92 01/22/18 22:00 114 01/22/18 21:00 91 01/22/18 20:51 98.3 96 18 107/67 (80) 98 01/22/18 20:00 96 01/22/18 19:00 97 01/22/18 18:01 98 I/O 01/22/18 01/22/18 01/22/18 01/23/18 01/23/18 01/23/18 07:00 15:00 23:00 07:00 15:00 23:00 Intake Total 420 ml 240 ml Output Total 450 ml 500 ml Balance -30 ml -260 ml Intake Oral 420 ml 240 ml Output Urine Total 450 ml 500 ml Physical Exam GENERAL: In NAD, cachectic SKIN: Warm and dry. HEAD: Normocephalic. EYES: No scleral icterus. No injection or drainage. NECK: Supple, trachea midline. No JVD or lymphadenopathy. CARDIOVASCULAR: Regular rate and rhythm without murmurs, gallops, or rubs. RESPIRATORY: Breath sounds equal bilaterally. No accessory muscle use. GASTROINTESTINAL: Abdomen soft, non-tender, nondistended. MUSCULOSKELETAL: No cyanosis, or edema. Laboratory Laboratory Tests Test 01/23/18 05:24 White Blood Count 7.4 TH/MM3 Red Blood Count 4.09 MIL/MM3 Hemoglobin 12.6 GM/DL Hematocrit 37.3 % Mean Corpuscular Volume 91.2 FL Mean Corpuscular Hemoglobin 30.8 PG Mean Corpuscular Hemoglobin Concent 33.8 % Red Cell Distribution Width 16.2 % Platelet Count 100 TH/MM3 Mean Platelet Volume 9.1 FL Erythrocyte Sedimentation Rate 8 mm/hr Blood Urea Nitrogen 32 MG/DL Creatinine 1.35 MG/DL Random Glucose 83 MG/DL Calcium Level 9.2 MG/DL Phosphorus Level 3.2 MG/DL Magnesium Level 1.9 MG/DL Sodium Level 131 MEQ/L Potassium Level 3.8 MEQ/L Chloride Level 92 MEQ/L Carbon Dioxide Level 28.6 MEQ/L Anion Gap 10 MEQ/L Estimat Glomerular Filtration Rate 53 ML/MIN Assessment and Plan Problem List: (1) Generalized weakness ICD Codes: R53.1 - Weakness Status: Acute (2) S/P AVR (aortic valve replacement) ICD Codes: Z95.2 - Presence of prosthetic heart valve Status: Acute (3) Aortic aneurysm ICD Codes: I71.9 - Aortic aneurysm of unspecified site, without rupture Status: Acute Assessment and Plan Will schedule SUE tomorrow to evaluate for AV endocarditis. SBE suspected based on patient's presentation. CT with saccular aneurysm. CT images sent to [facility]. Consider MRI as well. Cultures pending. Continue current program. D/w Dr. Fung. Problem Qualifiers (1) Aortic aneurysm: Qualified Codes: I71.2 - Thoracic aortic aneurysm, without rupture Saw Han MD Jan 23, 2018 18:03
--- NOTE | 2018-01-23 19:50 | HHI.PR ---
Subjective Remarks 7-year-old male admitted for general weakness and hyponatremia. He states he is feeling better, improving slowly, but still feels weak overall. Objective Vitals Vital Signs Date Time Temp Pulse Resp B/P (MAP) Pulse Ox O2 Delivery O2 Flow Rate FiO2 01/23/18 18:00 90 01/23/18 17:00 84 01/23/18 16:00 80 01/23/18 15:00 97.6 88 18 98/60 (73) 96 01/23/18 15:00 92 01/23/18 14:00 98 01/23/18 13:00 96 01/23/18 12:00 88 01/23/18 11:00 91 01/23/18 11:00 97.4 90 16 101/57 (72) 97 01/23/18 10:00 88 01/23/18 09:00 84 01/23/18 08:00 78 01/23/18 07:30 97.5 78 16 102/56 (71) 96 01/23/18 07:00 87 01/23/18 06:03 87 01/23/18 05:16 88 01/23/18 04:27 85 01/23/18 03:19 97.5 85 18 96/58 (71) 97 01/23/18 03:00 83 01/23/18 02:27 85 01/23/18 01:12 85 01/23/18 00:27 98.3 84 18 95/58 (70) 97 01/23/18 00:00 84 01/22/18 23:00 92 01/22/18 22:00 114 01/22/18 21:00 91 01/22/18 20:51 98.3 96 18 107/67 (80) 98 01/22/18 20:00 96 I/O 01/22/18 01/22/18 01/22/18 01/23/18 01/23/18 01/23/18 07:00 15:00 23:00 07:00 15:00 23:00 Intake Total 420 ml 240 ml 740 ml Output Total 450 ml 500 ml 720 ml Balance -30 ml -260 ml 20 ml Intake Oral 420 ml 240 ml 740 ml Output Urine Total 450 ml 500 ml 720 ml Result Diagram: 01/23/1852301/23/18523 Objective Remarks GENERAL: Weak appearing, alert and oriented 3 SKIN: Warm and dry. HEAD: Normocephalic. EYES: No scleral icterus. No injection or drainage. NECK: Supple, trachea midline. No JVD or lymphadenopathy. CARDIOVASCULAR: Regular rate and rhythm without murmurs, gallops, or rubs. RESPIRATORY: Bibasilar atelectasis. No accessory muscle use. GASTROINTESTINAL: Abdomen soft, non-tender, nondistended. EXTREMITIES: No cyanosis, or edema. NEUROLOGICAL: Awake, alert, and oriented x 3. Non-focal. Date of Insertion: Jan 19, 2018 Date of Removal: Jan 21, 2018 A/P Assessment and Plan 67 years old male admitted with generalized weakness Fatigue/generalized weakness Improving slowly but still not near his baseline Head CT is negative Continue PT S/P history of recent aortic valve replacement now on CT with saccular aneurysm R/O SBE Improving lower extremity edema, continue diuresis as needed Echocardiogram showed normal ejection fraction, aortic root not well visualized Ultrasound showed minimal ascites Appreciate cardiology following (Dr. Han) Follow blood cultures, ESR, CRP Toxic granulation on CBC r/o SBE Labs are improving, afebrile, UA negative, chest x-ray negative Follow blood cultures, negative as far Given antibiotic for signs of infection manifest Hyponatremia- asymptomatic Trend improving history of gross hematuria/prostate cancer Urine is grossly clear OP follow up by Dr. Carballo/Mandi and states had repeated cautery done repeatedly in the past Hypothyroidism TSH 6.590 DVT prophylaxis SCDs Nuno Chacon MD Jan 23, 2018 19:50
[2018-01-24] VITALS (28 sets, daily range): BP systolic 93–131; BP diastolic 53–68; PULSE 78–130; RESP 14–21; TEMP 97.5–101.9; O2SAT 95–98
[2018-01-24] MEDS: METOPROLOL TARTRATE 25 MG TAB PO SCH ×3 (05:53→22:28)
[2018-01-24] MEDS: HEPARIN SODIUM - SQ 10,000 UNITS/ML VIAL SQ SCH ×2 (09:00→22:28)
[2018-01-24] MEDS: DOCUSATE SODIUM 50 MG/SENNA 8.6 MG TAB PO SCH ×2 (10:27→22:28)
[2018-01-24] MEDS: SODIUM CHLORIDE 0.9% FLUSH 10 ML FLUSH IV FLUSH SCH ×2 (10:28→22:28)
--- NOTE | 2018-01-24 15:27 | PD.CARD.PN ---
Subjective Subjective Remarks Feels slightly stronger, mild DURON, no CP Objective Medications Current Medications Medications (Trade) Dose Ordered Sig/Dre Route Start Time Stop Time Status Last Admin (NS Flush) 2 ml UNSCH PRN IV FLUSH 01/19/18 21:00 01/22/18 22:14 (NS Flush) 2 ml BID IV FLUSH 01/19/18 21:00 01/24/18 10:28 (Tylenol) 650 mg Q4H PRN PO 01/19/18 21:00 01/20/18 01:42 (Zofran Inj) 4 mg Q6H PRN IVP 01/19/18 21:00 01/22/18 22:15 (Narcan Inj) 0.4 mg UNSCH PRN IV PUSH 01/19/18 21:00 (Janie-Colace) 1 tab BID PO 01/19/18 21:00 01/24/18 10:27 (Milk Of Magnesia Liq) 30 ml Q12H PRN PO 01/19/18 21:00 01/23/18 14:29 (Senokot) 17.2 mg Q12H PRN PO 01/19/18 21:00 (Dulcolax Supp) 10 mg DAILY PRN RECTAL 01/19/18 21:00 (Lactulose Liq) 30 ml DAILY PRN PO 01/19/18 21:00 (Heparin Inj) 5,000 units Q12HR SQ 01/20/18 09:00 01/23/18 20:26 (Lopressor) 6.25 mg Q8HR PO 01/21/18 14:30 01/24/18 05:53 Vital Signs / I&O Vital Signs Date Time Temp Pulse Resp B/P (MAP) Pulse Ox O2 Delivery O2 Flow Rate FiO2 01/24/18 14:00 87 01/24/18 13:00 90 01/24/18 12:00 85 01/24/18 11:00 86 01/24/18 11:00 98.6 99 14 102/58 (73) 97 01/24/18 10:00 85 01/24/18 09:00 86 01/24/18 08:00 88 01/24/18 08:00 97.5 86 16 107/60 (76) 98 01/24/18 07:00 86 01/24/18 06:00 78 01/24/18 05:51 79 103/63 (76) 01/24/18 05:00 80 01/24/18 04:06 97.9 81 17 93/53 (66) 96 01/24/18 04:00 80 01/24/18 04:00 81 01/24/18 03:00 80 01/24/18 02:00 82 01/24/18 01:00 78 01/24/18 00:37 98.1 82 17 102/60 (74) 97 01/24/18 00:00 80 01/24/18 00:00 80 01/23/18 23:00 70 01/23/18 22:00 72 01/23/18 21:00 92 01/23/18 20:13 98.1 95 17 120/77 (91) 95 01/23/18 20:13 97 01/23/18 20:00 94 01/23/18 19:00 92 01/23/18 18:00 90 01/23/18 17:00 84 01/23/18 16:00 80 I/O 01/23/18 01/23/18 01/23/18 01/24/18 01/24/18 01/24/18 07:00 15:00 23:00 07:00 15:00 23:00 Intake Total 240 ml 740 ml 240 ml Output Total 500 ml 720 ml 500 ml Balance -260 ml 20 ml -260 ml Intake Oral 240 ml 740 ml 240 ml Output Urine Total 500 ml 720 ml 500 ml Physical Exam GENERAL: In NAD, cachectic SKIN: Warm and dry. HEAD: Normocephalic. EYES: No scleral icterus. No injection or drainage. NECK: Supple, trachea midline. No JVD or lymphadenopathy. CARDIOVASCULAR: Regular rate and rhythm without murmurs, gallops, or rubs. RESPIRATORY: Breath sounds equal bilaterally. No accessory muscle use. GASTROINTESTINAL: Abdomen soft, non-tender, nondistended. MUSCULOSKELETAL: No cyanosis, or edema. Assessment and Plan Problem List: (1) Generalized weakness ICD Codes: R53.1 - Weakness Status: Acute (2) S/P AVR (aortic valve replacement) ICD Codes: Z95.2 - Presence of prosthetic heart valve Status: Acute (3) Aortic aneurysm ICD Codes: I71.9 - Aortic aneurysm of unspecified site, without rupture Status: Acute Assessment and Plan SBE suspected based on patient's presentation. CT with saccular aneurysm, images sent to [facility]. Will consider MRI as well. Continue current program. SUE today to evaluate for AV endocarditis. Problem Qualifiers (1) Aortic aneurysm: Qualified Codes: I71.2 - Thoracic aortic aneurysm, without rupture Saw Han MD Jan 24, 2018 15:27
--- NOTE | 2018-01-24 15:51 | PD.CAR.PN ---
CVT Progress Note Subjective/Hospital Course: CD of CT scan and echo sent to [facility] to eval pt for SUE today per Dr Han Objective: Vital Signs Date Time Temp Pulse Resp B/P (MAP) Pulse Ox O2 Delivery O2 Flow Rate FiO2 01/24/18 14:00 87 01/24/18 13:00 90 01/24/18 12:00 85 01/24/18 11:00 86 01/24/18 11:00 98.6 99 14 102/58 (73) 97 01/24/18 10:00 85 01/24/18 09:00 86 01/24/18 08:00 88 01/24/18 08:00 97.5 86 16 107/60 (76) 98 01/24/18 07:00 86 01/24/18 06:00 78 01/24/18 05:51 79 103/63 (76) 01/24/18 05:00 80 01/24/18 04:06 97.9 81 17 93/53 (66) 96 01/24/18 04:00 80 01/24/18 04:00 81 01/24/18 03:00 80 01/24/18 02:00 82 01/24/18 01:00 78 01/24/18 00:37 98.1 82 17 102/60 (74) 97 01/24/18 00:00 80 01/24/18 00:00 80 01/23/18 23:00 70 01/23/18 22:00 72 01/23/18 21:00 92 01/23/18 20:13 98.1 95 17 120/77 (91) 95 01/23/18 20:13 97 01/23/18 20:00 94 01/23/18 19:00 92 01/23/18 18:00 90 01/23/18 17:00 84 01/23/18 16:00 80 Result Diagram: 01/23/1852301/23/18523 (1) Generalized weakness (2) S/P AVR (aortic valve replacement) (3) Aortic aneurysm Problem Qualifiers (1) Aortic aneurysm: Qualified Codes: I71.2 - Thoracic aortic aneurysm, without rupture Noelle Walker Jan 24, 2018 15:51
--- NOTE | 2018-01-24 16:48 | HHI.PR ---
Subjective Remarks Patient has no complaints today besides being n.p.o. for SUE procedure. He had his SUE this afternoon. Objective Vitals Vital Signs Date Time Temp Pulse Resp B/P (MAP) Pulse Ox O2 Delivery O2 Flow Rate FiO2 01/24/18 14:00 87 01/24/18 13:00 90 01/24/18 12:00 85 01/24/18 11:00 86 01/24/18 11:00 98.6 99 14 102/58 (73) 97 01/24/18 10:00 85 01/24/18 09:00 86 01/24/18 08:00 88 01/24/18 08:00 97.5 86 16 107/60 (76) 98 01/24/18 07:00 86 01/24/18 06:00 78 01/24/18 05:51 79 103/63 (76) 01/24/18 05:00 80 01/24/18 04:06 97.9 81 17 93/53 (66) 96 01/24/18 04:00 80 01/24/18 04:00 81 01/24/18 03:00 80 01/24/18 02:00 82 01/24/18 01:00 78 01/24/18 00:37 98.1 82 17 102/60 (74) 97 01/24/18 00:00 80 01/24/18 00:00 80 01/23/18 23:00 70 01/23/18 22:00 72 01/23/18 21:00 92 01/23/18 20:13 98.1 95 17 120/77 (91) 95 01/23/18 20:13 97 01/23/18 20:00 94 01/23/18 19:00 92 01/23/18 18:00 90 01/23/18 17:00 84 I/O 01/23/18 01/23/18 01/23/18 01/24/18 01/24/18 01/24/18 07:00 15:00 23:00 07:00 15:00 23:00 Intake Total 240 ml 740 ml 240 ml Output Total 500 ml 720 ml 500 ml Balance -260 ml 20 ml -260 ml Intake Oral 240 ml 740 ml 240 ml Output Urine Total 500 ml 720 ml 500 ml Result Diagram: 01/23/1852301/23/18523 Objective Remarks GENERAL: Weak appearing, alert and oriented 3 SKIN: Warm and dry. HEAD: Normocephalic. EYES: No scleral icterus. No injection or drainage. NECK: Supple, trachea midline. No JVD or lymphadenopathy. CARDIOVASCULAR: Regular rate and rhythm without murmurs, gallops, or rubs. RESPIRATORY: Bibasilar atelectasis. No accessory muscle use. GASTROINTESTINAL: Abdomen soft, non-tender, nondistended. EXTREMITIES: No cyanosis, or edema. NEUROLOGICAL: Awake, alert, and oriented x 3. Non-focal. Date of Insertion: Jan 19, 2018 Date of Removal: Jan 21, 2018 A/P Assessment and Plan 67 years old male admitted with generalized weakness Fatigue/generalized weakness Improving slowly but still not near his baseline Head CT is negative Continue PT Aneurysm of aortic root, s/p aortic valve replacement (rule out SBE) Improving lower extremity edema, continue diuresis Echocardiogram showed normal ejection fraction SUE shows aortic root aneurysm, endocarditis not ruled out Abdominal ultrasound showed minimal ascites Appreciate cardiology following (Dr. Hna) Toxic granulation on CBC r/o SBE Remains afebrile, labs stable, UA negative, chest x-ray negative Follow blood cultures, negative as far Given antibiotic for signs of infection manifest Hyponatremia- asymptomatic Trend improving history of gross hematuria/prostate cancer OP follow up by Dr. Carballo/Mandi and states had repeated cautery done repeatedly in the past Urine is grossly clear Hypothyroidism TSH 6.590, treatment held due to weight loss DVT prophylaxis Nuno Henning MD Jan 24, 2018 16:48
[2018-01-24] MEDS: ACETAMINOPHEN 325 MG TAB PO PRN (22:27)
[2018-01-25] VITALS (27 sets, daily range): BP systolic 92–101; BP diastolic 55–60; PULSE 80–130; RESP 16–24; TEMP 97.2–97.9; O2SAT 95–96
[2018-01-25] MEDS: METOPROLOL TARTRATE 25 MG TAB PO SCH ×3 (05:40→21:18)
[2018-01-25 07:47] LABS: BICARBONATE 29.1 MEQ/L (21.0-32.0); CREATININE 1.98 MG/DL (0.60-1.30)
--- NOTE | 2018-01-25 08:19 | CF ---
cc: Saw Han MD, Otakar MD DATE: 01/24/2018 INDICATION: Status post aortic valve replacement, possible endocarditis, aortic root/proximal aorta saccular aneurysm. PROCEDURES PERFORMED: Transesophageal echocardiogram. PROCEDURE IN DETAIL: After the patient was sedated by anesthesia, transesophageal probe was placed without difficulty. Tomographic images are obtained. Left ventricular function was preserved with an ejection fraction of 60% with no wall motion abnormalities. Left atrial appendage was visualized and there was no evidence of left atrial thrombus. The aortic valve was visualized. There was normal function of the aortic valve prosthesis. There was no clear evidence of aortic valve vegetations. There was evidence of saccular aneurysm in the distal part of the aortic root; adjacent to this extends a mobile density with a linear base, which may represent a thrombus or vegetation. Mitral valve was structurally normal. No evidence of mitral stenosis. There was evidence of trace mitral regurgitation. Trace tricuspid regurgitation. Bubble study was performed and there was no evidence of right to left shunt. There was no evidence of pulmonary insufficiency. The descending thoracic aorta was visualized and there was no evidence of significant plaque. DIAGNOSES: 1. No evidence of aortic valve vegetations. 2. Normal function of aortic valve prosthesis. 3. Saccular aortic root aneurysm. 4. Possible aortic root thrombus versus vegetation. 5. Trace mitral regurgitation 6. Trace tricuspid regurgitation. Saw Han MD OQ/ , 04:45 PM , 05:52 PM [facility]ENTER[facility]
[2018-01-25] MEDS: MAGNESIUM HYDROXIDE SUSP 30 ML CUP PO PRN (09:16)
[2018-01-25] MEDS: DOCUSATE SODIUM 50 MG/SENNA 8.6 MG TAB PO SCH ×2 (09:16→21:17)
[2018-01-25] MEDS: HEPARIN SODIUM - SQ 10,000 UNITS/ML VIAL SQ SCH ×2 (09:18→21:17)
[2018-01-25] MEDS: SODIUM CHLORIDE 0.9% FLUSH 10 ML FLUSH IV FLUSH SCH ×2 (09:19→21:18)
[2018-01-25] MEDS ORDERED: ACETAMINOPHEN/HYDROcodone 325 MG/5 MG TAB PO PRN (10:30)
--- NOTE | 2018-01-25 11:54 | PD.CAR.PN ---
CVT Progress Note Subjective/Hospital Course: CD of CT scan and echo sent to [facility] Carlos A Pascual [facility] to eval s/p SUE/ also sent to [facility] DIAGNOSES: 1. No evidence of aortic valve vegetation. 2. Normal function of aortic valve prosthesis. 3. Saccular aortic root aneurysm. 4. Possible aortic root thrombus versus vegetation. 5. Trace mitral regurgitation 6. Trace tricuspid regurgitation. for ct abdomen today 2/2 purulent drainage from previous umbilical hernia repair CM to eval for transfer to [facility] Objective: GENERAL: lethargic SKIN: Warm and dry. small amount of purulent drainage umbilical area HEAD: Normocephalic. EYES: No scleral icterus. No injection or drainage. NECK: Supple, trachea midline. No JVD or lymphadenopathy. CARDIOVASCULAR: Regular rate and rhythm without murmurs, gallops, or rubs. RESPIRATORY: Breath sounds equal bilaterally. No accessory muscle use. GASTROINTESTINAL: Abdomen soft, non-tender, nondistended. MUSCULOSKELETAL: No cyanosis, or edema. BACK: Nontender without obvious deformity. No CVA tenderness. Vital Signs Date Time Temp Pulse Resp B/P (MAP) Pulse Ox O2 Delivery O2 Flow Rate FiO2 01/25/18 07:27 97.2 82 16 92/60 (71) 95 01/25/18 06:09 90 01/25/18 05:23 89 01/25/18 04:00 97 01/25/18 03:28 97.8 105 20 92/57 (69) 96 01/25/18 03:00 106 01/25/18 02:05 106 01/25/18 01:00 110 01/25/18 00:00 130 01/24/18 23:41 99.7 126 21 108/65 (79) 95 01/24/18 23:00 130 01/24/18 22:28 101.9 105 19 131/56 (81) 98 01/24/18 22:00 108 01/24/18 21:00 96 01/24/18 20:00 100 01/24/18 19:46 98.5 100 18 115/68 (84) 97 01/24/18 19:00 98 01/24/18 18:00 102 01/24/18 17:00 86 01/24/18 14:00 87 01/24/18 13:00 90 01/24/18 12:00 85 Labs: Laboratory Tests Test 01/25/18 05:58 Blood Urea Nitrogen 39 MG/DL (7-18) Creatinine 1.98 MG/DL (0.60-1.30) Random Glucose 87 MG/DL (74-106) Calcium Level 10.0 MG/DL (8.5-10.1) Sodium Level 132 MEQ/L (136-145) Potassium Level 4.7 MEQ/L (3.5-5.1) Chloride Level 93 MEQ/L (98-107) Carbon Dioxide Level 29.1 MEQ/L (21.0-32.0) Anion Gap 10 MEQ/L (5-15) Estimat Glomerular Filtration Rate 34 ML/MIN (>89) Result Diagram: 01/23/18 0524 01/25/18 0558 (1) Generalized weakness (2) S/P AVR (aortic valve replacement) (3) Aortic aneurysm Plan: films reviewed by Dr Pascual CM to [facility] for transfer Problem Qualifiers (1) Aortic aneurysm: Qualified Codes: I71.2 - Thoracic aortic aneurysm, without rupture Noelle Walker Jan 25, 2018 11:54
[2018-01-25] MEDS ORDERED: VANCOMYCIN INJ 1,000 MG in SODIUM CHLOR 0.9% 250 ML INJ 250 ML IV SCH (12:00)
[2018-01-25] MEDS ORDERED: DIATRIZOATE MEGLUM/DIATRIZOATE SOD 9 ML CUP PO ONE (12:15)
[2018-01-25] MEDS ORDERED: oxyCODONE/ACETAMINOPHEN 5 MG/325 MG TAB PO PRN (15:00)
[2018-01-25] MEDS: ONDANSETRON HCL 4 MG/2 ML VIAL IVP PRN (15:11)
--- NOTE | 2018-01-25 17:36 | HHI.PR ---
Subjective Remarks Patient had increased pain around his umbilicus today, exam showed purulent drainage around previous surgical site of umbilical hernia repair. Objective Vitals Vital Signs Date Time Temp Pulse Resp B/P (MAP) Pulse Ox O2 Delivery O2 Flow Rate FiO2 01/25/18 16:00 80 01/25/18 15:20 97.5 87 21 94/55 (68) 95 01/25/18 15:00 87 01/25/18 14:01 104 01/25/18 13:00 106 01/25/18 12:00 88 01/25/18 11:00 88 01/25/18 11:00 97.9 87 24 101/55 (70) 95 01/25/18 10:00 94 01/25/18 09:00 92 01/25/18 08:00 82 01/25/18 07:27 97.2 82 16 92/60 (71) 95 01/25/18 07:00 87 01/25/18 06:09 90 01/25/18 05:23 89 01/25/18 04:00 97 01/25/18 03:28 97.8 105 20 92/57 (69) 96 01/25/18 03:00 106 01/25/18 02:05 106 01/25/18 01:00 110 01/25/18 00:00 130 01/24/18 23:41 99.7 126 21 108/65 (79) 95 01/24/18 23:00 130 01/24/18 22:28 101.9 105 19 131/56 (81) 98 01/24/18 22:00 108 01/24/18 21:00 96 01/24/18 20:00 100 01/24/18 19:46 98.5 100 18 115/68 (84) 97 01/24/18 19:00 98 01/24/18 18:00 102 I/O 01/24/18 01/24/18 01/24/18 01/25/18 01/25/18 01/25/18 07:00 15:00 23:00 07:00 15:00 23:00 Intake Total 240 ml 480 ml 360 ml Output Total 500 ml 675 ml 600 ml Balance -260 ml -195 ml -240 ml Intake Oral 240 ml 480 ml 360 ml Output Urine Total 500 ml 675 ml 600 ml Result Diagram: 01/23/18 0524 01/25/18 0558 Objective Remarks GENERAL: Weak appearing, alert and oriented 3 SKIN: Warm and dry. HEAD: Normocephalic. EYES: No scleral icterus. No injection or drainage. NECK: Supple, trachea midline. No JVD or lymphadenopathy. CARDIOVASCULAR: Regular rate and rhythm without murmurs, gallops, or rubs. RESPIRATORY: Bibasilar atelectasis. No accessory muscle use. GASTROINTESTINAL: Abdomen soft, tender near umbilicus, umbilicus is red, palpation produces purulent drainage EXTREMITIES: No cyanosis, or edema. NEUROLOGICAL: Awake, alert, and oriented x 3. Non-focal. Date of Insertion: Jan 19, 2018 Date of Removal: Jan 21, 2018 A/P Assessment and Plan 67 years old male admitted with generalized weakness Fatigue/generalized weakness Improving slowly but still not near his baseline Head CT is negative Continue PT Aneurysm of aortic root, s/p aortic valve replacement (rule out SBE) Improving lower extremity edema, continue diuresis Echocardiogram showed normal ejection fraction SUE shows aortic root aneurysm, endocarditis not ruled out Abdominal ultrasound showed minimal ascites Appreciate cardiology following (Dr. Han) Umbilical infection Purulent drainage at site of umbilical hernia repair Wound was cultured, follow results Iodoform packing recommended for wound care, daily dressing changes CT of the abdomen and pelvis was ordered to rule out deeper communication of abscess considering upcoming surgical repair of aortic aneurysm Vancomycin IV started Toxic granulation on CBC r/o SBE Remains afebrile, labs stable, UA negative, chest x-ray negative Follow blood cultures, negative as far Given antibiotic for signs of infection manifest Hyponatremia-resolved Fully resolved history of gross hematuria/prostate cancer OP follow up by Dr. Carballo/Mandi and states had repeated cautery done repeatedly in the past Urine is grossly clear Hypothyroidism TSH 6.590, treatment held due to weight loss DVT prophylaxis SCDs Nuno Chacon MD Jan 25, 2018 17:36
--- NOTE | 2018-01-25 18:21 | RADRPT ---
EXAM DATE/TIME: 01/25/2018 17:32 [place] COMPARISON: No previous studies available for comparison. INDICATIONS : Recent umbilical repair. Purulent drainage from repair site and tender. ORAL CONTRAST: Prescribed oral contrast ingested. RADIATION DOSE: 9.60 CTDIvol (mGy) MEDICAL HISTORY : Hypertension. Carcinoma, prostate. Aortic root aneurysm. SURGICAL HISTORY : Prostatectomy. Cervical surgery. ENCOUNTER: Initial ACUITY: 2 days PAIN SCALE: 8/10 LOCATION: pelvis abdomen TECHNIQUE: Volumetric scanning of the abdomen and pelvis was performed. Using automated exposure control and ad justment of the mA and/or kV according to patient size, radiation dose was kept as low as reasonably achievable to obtain optimal diagnostic quality images. DICOM format image data is available electro nically for review and comparison. FINDINGS: LOWER LUNGS: Mild atelectasis in the lung bases. LIVER: Homogeneous density without lesion. There is no dilation of the biliary tree. No calcified gallston es. SPLEEN: Enlarged without focal mass. PANCREAS: Within normal limits. KIDNEYS: Tiny nonobstructing stones in the midpole collecting system on the right in the lower pole collecting system on the left. ADRENAL GLANDS: Within normal limits. VASCULAR: There is no aortic aneurysm. BOWEL/MESENTERY: Mild perisplenic and perihepatic fluid and minimal dependent fluid in the pelvis. The bowel structure s are nondilated. No definite wall thickening or inflammatory changes. ABDOMINAL WALL: Periumbilical incision with slight surrounding induration. No evidence of focal fluid collection to s uggest abscess RETROPERITONEUM: There is no lymphadenopathy. BLADDER: No wall thickening or mass. REPRODUCTIVE: Within normal limits. INGUINAL: There is no lymphadenopathy or hernia. MUSCULOSKELETAL: Within normal limits for patient age. CONCLUSION: Mild induration at site of umbilical hernia repair. No focal collection. Hepatosplenomegaly with low volume ascites. Olu Grigsby MD on January 25, 2018 at 18:16 Board Certified Radiologist. This report was verified electronically.
--- NOTE | 2018-01-25 19:21 | HHI.DS ---
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 The patient reports that for the past 3 weeks he has had swollen legs. He saw his carpenter helper, Dr. Han, approximately 10 days ago and was started on Spironolactone with which he has been compliant. The patient reports that Dr. Han did an echo which he said was normal. The patient endorses nausea and associated anorexia with a 10 pound weight loss in approximately 1-1/2 weeks. He denies any chest pain or shortness of breath. He has a history of hypertension however his medication was discontinued 3 weeks ago secondary to hypotension. The patient reports dizziness and fatigue. He denies any lateralizing signs/symptoms. No chest pain or shortness of breath. No abdominal pain. CBC/BMP: 01/23/18 0524 01/25/18 0558 Significant Findings Laboratory Tests Test 01/23/18 05:24 01/25/18 05:58 Red Blood Count 4.09 MIL/MM3 (4.50-5.90) Hemoglobin 12.6 GM/DL (13.0-17.0) Hematocrit 37.3 % (39.0-51.0) Platelet Count 100 TH/MM3 (150-450) Blood Urea Nitrogen 32 MG/DL (7-18) 39 MG/DL (7-18) Creatinine 1.35 MG/DL (0.60-1.30) 1.98 MG/DL (0.60-1.30) Sodium Level 131 MEQ/L (136-145) 132 MEQ/L (136-145) Chloride Level 92 MEQ/L (98-107) 93 MEQ/L (98-107) Estimat Glomerular Filtration Rate 53 ML/MIN (>89) 34 ML/MIN (>89) C-Reactive Protein High Sensitivity 19.0 mg/L PE at Discharge GENERAL: Weak appearing, alert and oriented 3 SKIN: Warm and dry. HEAD: Normocephalic. EYES: No scleral icterus. No injection or drainage. NECK: Supple, trachea midline. No JVD or lymphadenopathy. CARDIOVASCULAR: Regular rate and rhythm without murmurs, gallops, or rubs. RESPIRATORY: Bibasilar atelectasis. No accessory muscle use. GASTROINTESTINAL: Abdomen soft, tender near umbilicus, umbilicus is red, palpation produces purulent drainage EXTREMITIES: No cyanosis, or edema. NEUROLOGICAL: Awake, alert, and oriented x 3. Non-focal. Hospital Course 67-year-old male who presented 6 days ago to the ER in a state of generalized weakness found to have hyponatremia and dehydration initially. He has a history of aortic pig valve replacement, and further workup revealed that he has a aortic aneurysm at the root of his aorta measuring 6.2 x 4.7 cm. transesophageal echocardiogram supported this diagnosis. Cardiothoracic surgery was consulted has been in communication with [facility] for possible transfer to obtain surgical repair of this aneurysm. He has a few other medical issues which are listed below. We appreciate the assistance of [facility]. Fatigue/generalized weakness Improving slowly but still not near his baseline, limited participation with PT due to weakness Head CT is negative Aneurysm of aortic root, s/p aortic valve replacement (rule out SBE) Lower extremity edema improved with diuresis Echocardiogram showed normal ejection fraction SUE shows aortic root aneurysm, "endocarditis not ruled out" Abdominal ultrasound showed minimal ascites CT Angiogram shows Aortic Root aneurysm measuring 6.5cm x 4.7cm Appreciate cardiology following (Dr. Han) Umbilical infection Purulent drainage at site of umbilical hernia repair Wound was cultured, results to follow Iodoform packing recommended for wound care, daily dressing changes CT Abdomen shows indurated tissue near site, but no fluid collection (no abscess ) Continue Vancomycin IV for skin infection and cross coverage for endocarditis risk (blood culture negative x 3 days) Toxic granulation on CBC r/o SBE Remains afebrile, labs stable, UA negative, chest x-ray negative Blood cultures negative x 3 days Given antibiotic for signs of infection manifest Hyponatremia-resolved Fully resolved history of gross hematuria/prostate cancer OP follow up by Dr. Carballo/Mandi and states had repeated cautery done repeatedly in the past Wells catheter shows blood today, previously clear/yellow Hypothyroidism TSH 6.590, treatment held due to weight loss DVT prophylaxis SCDs Pt Condition on Discharge: Stable Discharge Disposition: Trnsfr to Other Facility Discharge Time: <= 30 minutes Discharge Instructions DIET: Follow Instructions for: Heart Healthy Diet Activities you can perform: Weight Bearing as Nuno De La Rosa MD Jan 25, 2018 19:21
--- NOTE | 2018-01-25 19:37 | PD.CARD.PN ---
Subjective Subjective Remarks No CP or SOB, feels weak Objective Medications Current Medications Medications (Trade) Dose Ordered Sig/Dre Route Start Time Stop Time Status Last Admin (NS Flush) 2 ml UNSCH PRN IV FLUSH 01/19/18 21:00 01/22/18 22:14 (NS Flush) 2 ml BID IV FLUSH 01/19/18 21:00 01/25/18 09:19 (Tylenol) 650 mg Q4H PRN PO 01/19/18 21:00 01/24/18 22:27 (Zofran Inj) 4 mg Q6H PRN IVP 01/19/18 21:00 01/25/18 15:11 (Narcan Inj) 0.4 mg UNSCH PRN IV PUSH 01/19/18 21:00 (Janie-Colace) 1 tab BID PO 01/19/18 21:00 01/25/18 09:16 (Milk Of Magnesia Liq) 30 ml Q12H PRN PO 01/19/18 21:00 01/25/18 09:16 (Senokot) 17.2 mg Q12H PRN PO 01/19/18 21:00 (Dulcolax Supp) 10 mg DAILY PRN RECTAL 01/19/18 21:00 (Lactulose Liq) 30 ml DAILY PRN PO 01/19/18 21:00 (Heparin Inj) 5,000 units Q12HR SQ 01/20/18 09:00 01/25/18 09:18 (Lopressor) 6.25 mg Q8HR PO 01/21/18 14:30 01/25/18 13:19 Vancomycin HCl 1000 mg/Sodium Chloride 250 ml @ 250 mls/hr Q24H IV 01/25/18 12:00 01/25/18 11:35 (Percocet 5-325 Mg) 1 tab Q4H PRN PO 01/25/18 15:00 Vital Signs / I&O Vital Signs Date Time Temp Pulse Resp B/P (MAP) Pulse Ox O2 Delivery O2 Flow Rate FiO2 01/25/18 18:13 84 01/25/18 17:00 82 01/25/18 16:00 80 01/25/18 15:20 97.5 87 21 94/55 (68) 95 01/25/18 15:00 87 01/25/18 14:01 104 01/25/18 13:00 106 01/25/18 12:00 88 01/25/18 11:00 88 01/25/18 11:00 97.9 87 24 101/55 (70) 95 01/25/18 10:00 94 01/25/18 09:00 92 01/25/18 08:00 82 01/25/18 07:27 97.2 82 16 92/60 (71) 95 01/25/18 07:00 87 01/25/18 06:09 90 01/25/18 05:23 89 01/25/18 04:00 97 01/25/18 03:28 97.8 105 20 92/57 (69) 96 01/25/18 03:00 106 01/25/18 02:05 106 01/25/18 01:00 110 01/25/18 00:00 130 01/24/18 23:41 99.7 126 21 108/65 (79) 95 01/24/18 23:00 130 01/24/18 22:28 101.9 105 19 131/56 (81) 98 01/24/18 22:00 108 01/24/18 21:00 96 01/24/18 20:00 100 01/24/18 19:46 98.5 100 18 115/68 (84) 97 I/O 01/24/18 01/24/18 01/24/18 01/25/18 01/25/18 01/25/18 07:00 15:00 23:00 07:00 15:00 23:00 Intake Total 240 ml 480 ml 360 ml 1266 ml Output Total 500 ml 675 ml 600 ml 450 ml Balance -260 ml -195 ml -240 ml 816 ml Intake Oral 240 ml 480 ml 360 ml 1266 ml Output Urine Total 500 ml 675 ml 600 ml 450 ml Physical Exam GENERAL: In NAD, cachectic SKIN: Warm and dry. HEAD: Normocephalic. EYES: No scleral icterus. No injection or drainage. NECK: Supple, trachea midline. No JVD or lymphadenopathy. CARDIOVASCULAR: Regular rate and rhythm without murmurs, gallops, or rubs. RESPIRATORY: Breath sounds equal bilaterally. No accessory muscle use. GASTROINTESTINAL: Abdomen soft, non-tender, nondistended. MUSCULOSKELETAL: No cyanosis, or edema. Laboratory Laboratory Tests Test 01/25/18 05:58 Blood Urea Nitrogen 39 MG/DL Creatinine 1.98 MG/DL Random Glucose 87 MG/DL Calcium Level 10.0 MG/DL Sodium Level 132 MEQ/L Potassium Level 4.7 MEQ/L Chloride Level 93 MEQ/L Carbon Dioxide Level 29.1 MEQ/L Anion Gap 10 MEQ/L Estimat Glomerular Filtration Rate 34 ML/MIN Imaging Last 24 hours Impressions Abdomen/Pelvis CT 01/25/18 0000 Signed Impressions: Service Date/Time: Thursday, January 25, 2018 17:32 - CONCLUSION: Mild induration at site of umbilical hernia repair. No focal collection. Hepatosplenomegaly with low volume ascites. Olu Grigsby MD Assessment and Plan Problem List: (1) Generalized weakness ICD Codes: R53.1 - Weakness Status: Acute (2) S/P AVR (aortic valve replacement) ICD Codes: Z95.2 - Presence of prosthetic heart valve Status: Acute (3) Aortic aneurysm ICD Codes: I71.9 - Aortic aneurysm of unspecified site, without rupture Status: Acute Assessment and Plan SUE with no evidence of valvular vegetations. There was evidence of saccular proximal aortic aneurysm and adjacent linear base mobile density of unclear significance. Blood cx so far negative. Continue current program. The patient was accepted to [facility] for further evaluation and management. Problem Qualifiers (1) Aortic aneurysm: Qualified Codes: I71.2 - Thoracic aortic aneurysm, without rupture Saw Han MD Jan 25, 2018 19:37
== END 2018-01-25 23:03 | disposition short-term general hospital (02) | DRG 299 ==
LOC: NEPC 12:10 → NEDA 20:42 → NEDH 01-20 01:06 → HCIS 01-20 11:28
PROVIDERS: ADMIT Family Medicine; ATTEND Family Medicine
PROC: 0T9B70Z Drainage of Bladder with Drainage Device, Via Natural or Artificial Opening (ICD-10-PCS; 2018-01-20)
PROC: B24BZZ4 Ultrasonography of Heart with Aorta, Transesophageal (ICD-10-PCS; principal; 2018-01-24)
DX: I71.2 Thoracic aortic aneurysm, without rupture (principal); I33.0 Acute and subacute infective endocarditis; I95.9 Hypotension, unspecified; R18.8 Other ascites; E87.1 Hypo-osmolality and hyponatremia; N30.40 Irradiation cystitis without hematuria; T81.4XXA Infection following a procedure, initial encounter; E86.0 Dehydration; R60.0 Localized edema; R63.4 Abnormal weight loss; R63.0 Anorexia; E03.9 Hypothyroidism, unspecified; L08.9 Local infection of the skin and subcutaneous tissue, unspecified; I10 Essential (primary) hypertension; Y84.2 Radiological procedure and radiotherapy as the cause of abnormal reaction of the patient, or of later complication, without mention of misadventure at the time of the procedure; K76.9 Liver disease, unspecified; D72.825 Bandemia; R31.0 Gross hematuria; I49.3 Ventricular premature depolarization; R00.0 Tachycardia, unspecified; R26.9 Unspecified abnormalities of gait and mobility; M10.9 Gout, unspecified; R53.1 Weakness; Z85.46 Personal history of malignant neoplasm of prostate; Z98.890 Other specified postprocedural states; Z79.899 Other long term (current) drug therapy; Z95.3 Presence of xenogenic heart valve
CPT/HCPCS: 70450; 71046; 71275; 74176; 76705; 80048; 80053; 81001; 82550; 83735; 83880; 84100; 84439; 84443; 84481; 84484; 85007; 85025; 85027; 85610; 85652; 85730; 86141; 86403; 87040; 87070; 87205; 93005; 93306; 93312; 93320; 93325; 93970; 96360; 96361; J1644; J1940; J2405; J3370; J7030; J7050; Q9963; Q9967